=== PATIENT | female | born 1970 | race Caucasian/White ===

== ENCOUNTER → 2016-10-20 | Outpatient (CLI) | payer BC ==
[2015-09-09 14:12] VITALS: BP 146/84
[~2016-10-20] MED LIST: CHLO25CA9 PO; CHOL100013 PO; CYCL10TA2 PO; DULO60CA6 PO; ESCI20TA10 PO; FERR-26 PO; FISH1CAP PO; GABA-586 PO; GABA400C PO; HYDR-2672 PO; HYDR-963 PO; HYDR12.58 PO; HYDR25TA PO; HYDR50CA2 PO; INDO50CA PO; LISI-334 PO; LISI40TA PO; MOME13HF2 IH; MULT-460 PO; MULT-658 PO; NAPR500T3 PO; OXYC-244 PO; OXYC1TAB9 PO; PANT40TA3 PO; ROPI4TAB3 PO; SINEX; TRAM50TA PO; TRAZ100T12 PO; TRIA10.8 NS; VENTOLIN HFA18 GM INH; [UNRECOGNIZED DRUG - CODE] PO; water pill
--- NOTE | 2016-10-20 17:20 | KCIC ---
Examination: Three views of the lumbar spine. HISTORY History of chronic low back pain. COMPARISON 01/17/2015. Findings: The vertebral body heights are maintained. Minimal 1 millimeter retrolisthesis of L3 on L4 similar to prior exam. Posterior fusion rods and pedicle screws identified at L4-L5 vertebral levels. Mild degenerative changes identified at L4-L5 vertebral level. Impression : Postsurgical changes identified in the lower lumbar spine unchanged. Electronically signed by: Rex Lynn (Oct 20, 2016 17:19:06)
== END | disposition home or self-care (01) ==
LOC: KCIC 08:24
PROVIDERS: ATTEND Neurological Surgery
DX: M54.5 Low back pain (principal); G89.29 Other chronic pain
CPT/HCPCS: 72100

== ENCOUNTER → 2016-10-20 | Outpatient (CLI) | payer SELFPAY ==
[2015-09-09 14:12] VITALS: BP 146/84
[~2016-10-20] MED LIST changes: +GADOBUTROL 7.5 MMOL/7.5 ML VIAL IV ONE
--- NOTE | 2016-10-20 13:34 | KCIC ---
PROCEDURE MRI of the lumbar spine without and with contrast 10/20/2016 HISTORY Chronic low back pain which radiates down the left leg. History of previous lumbar spine surgery. TECHNIQUE Unenhanced T1 weighted and T2 weighted sagittal and axial and inversion recovery sagittal images of the lumbar spine were obtained. After the intravenous administration of 14 cc of Gadavist, enhanced T1 weighted sagittal and axial images of the lumbar spine were obtained. FINDINGS Comparison study is dated 02/18/2015. Very mild S-shaped curvature of the thoracolumbar spine is seen. The patient is status post posterolateral fusion using pedicle screws and stabilizing rods at L4-5. Degenerative signal changes are seen involving the L2-3, L3-4, L4-5 and L5-S1 discs. Degenerative signal changes are seen within the marrow surrounding these discs. Loss of height of the L4-5 disc is noted. The conus medullaris is normal in morphology, position, and signal characteristics. At the L1-2 disc space there is a minimal generalized disc bulge. This does not result in significant central spinal canal or neural foraminal stenosis. At the L2-3 disc space there is a mild generalized disc bulge. Degenerative changes are seen involving the facet joints bilaterally. There is mild ligamentum flavum hypertrophy bilaterally. There is prominence of the posterior epidural fat. These findings when combined result in mild central spinal canal stenosis. No neural foraminal stenosis is seen. At the L3-4 disc space there is a mild generalized disc bulge. This is eccentric to the right. Degenerative changes are seen involving the facet joints bilaterally. There is mild to moderate ligamentum flavum hypertrophy bilaterally. There is prominence of the posterior epidural fat. These findings when combined result in mild central spinal canal stenosis. No neural foraminal stenosis is seen. At the L4-5 disc space the patient is status post right hemilaminectomy. There is a mild generalized disc bulge. Degenerative changes are seen involving the facet joints bilaterally. These findings do not result in significant central spinal canal or neural foraminal stenosis. At the L5-S1 disc space the patient is status post right hemilaminectomy. There is a mild generalized disc bulge. Degenerative changes are seen involving the facet joints bilaterally. These findings do not result in significant central spinal canal or neural foraminal stenosis. Since the previous examination there has been no significant interval change. IMPRESSION 1. Status post posterolateral fusion and right hemilaminectomy at L4-5 and right hemilaminectomy L5-S1. 2. The changes of degenerative disc disease are seen involving lumbar spine. These findings result in mild central spinal canal stenosis at L2-3 and L3-4. No neural foraminal stenosis is seen. Electronically signed by: Justin Espino MD (Oct 20, 2016 13:32:11)
== END | disposition home or self-care (01) ==
LOC: KCIC MRI 08:31
PROVIDERS: ATTEND Physical Medicine & Rehabilitation
DX: M54.5 Low back pain (principal); G89.29 Other chronic pain
CPT/HCPCS: 72158; A9585

== ENCOUNTER → 2016-11-10 | Outpatient (CLI) | payer BC ==
[2015-09-09 14:12] VITALS: BP 146/84
[~2016-11-10] MED LIST changes: -GADOBUTROL 7.5 MMOL/7.5 ML VIAL IV ONE
--- NOTE | 2016-11-10 11:44 | KCIC ---
PROCEDURE Lateral radiographs of the lumbar spine to include flexion and extension views 11/09/2012 HISTORY Low back pain. History of previous lumbar spine surgery. FINDINGS Standing neutral and flexion and extension digital radiographs of the lumbar spine were obtained. Comparison study is dated 01/17/2015. The patient is status post posterolateral fusion using pedicle screws and stabilizing rods at L4-5. The alignment of the lumbar vertebrae is within normal limits on the lateral radiographs and is maintained on the flexion and extension views. Degenerative changes consisting of vertebral endplate sclerosis and minimal anterior and posterior vertebral body osteophyte formation are seen throughout the lumbar disc spaces. Mild disc space narrowing is seen at L4-5 and L5-S1. Degenerative changes are seen involving the facet joints of the lower lumbar spine. IMPRESSION Postsurgical and degenerative changes are seen involving the lumbar spine as outlined above. The alignment of the lumbar vertebrae is maintained on the flexion and extension views. Electronically signed by: Justin Espino MD (Nov 10, 2016 11:43:25)
--- NOTE | 2016-11-10 11:56 | KCIC ---
PROCEDURE CT of the lumbar spine without contrast 11/10/2016 HISTORY Low back pain. History of previous lumbar spine surgery. TECHNIQUE Unenhanced contiguous, 0.6 millimeter axial sections were obtained through the lumbar spine. 3 millimeter reconstructed sagittal axial and coronal images were obtained. One or more of the following individualized dose reduction techniques were utilized for this study: 1. Automated exposure control. 2. Adjustment of the mA and/or kV according to patient size. 3. Use of iterative reconstruction technique. FINDINGS Comparison is made to the patient's MRI of the lumbar spine dated 10/20/2016. Sagittal and coronal reconstructed images demonstrate very mild S-shaped curvature of the thoracolumbar spine. The patient is status post posterolateral fusion at L4-5 using stabilizing rods and pedicle screws. Degenerative changes are seen throughout the lumbar disc spaces consisting of vertebral endplate sclerosis and minimal to mild anterior vertebral body osteophyte formation predominantly. Disc space narrowing and vacuum disc phenomenon are seen at L4-5 and L5-S1. At the L1-2 disc space there is a minimal generalized disc bulge. Degenerative changes are seen involving the facet joints bilaterally. These findings do not result in significant central spinal canal or neural foraminal stenosis. At the L2-3 disc space there is a mild generalized disc bulge. Degenerative changes are seen involving the facet joints bilaterally. There is mild ligamentum flavum hypertrophy bilaterally. There is prominence of the posterior epidural fat. These findings when combined result in mild central spinal canal stenosis. No neural foraminal stenosis is seen. At the L3-4 disc space there is a mild generalized disc bulge. Degenerative changes are seen involving the facet joints bilaterally. There is mild to moderate ligamentum flavum hypertrophy bilaterally. There is prominence of the posterior epidural fat. These findings when combined result in mild central spinal canal stenosis. No neural foraminal stenosis is seen. The L4-5 disc space the patient is status post right hemilaminotomy. There is a mild generalized disc bulge. Degenerative changes are seen involving the facet joints bilaterally. These findings do not result in significant central spinal canal or neural foraminal stenosis. At the L5-S1 disc space the patient is status post right hemilaminectomy. There is a mild generalized disc bulge. This is eccentric to the left. Degenerative changes are seen involving the facet joints, left greater than right. These findings do not result in significant central spinal canal stenosis. Mild left neural foraminal stenosis is seen. The right neural foramina is patent. IMPRESSION 1. Status post right hemilaminotomy and posterolateral fusion at L4-5. Status post right hemilaminectomy at L5-S1. 2. The changes of degenerative disc disease are seen throughout the lumbar spine. These findings result in mild central spinal canal stenosis at L2-3 and L3-4. Mild left neural foraminal stenosis is seen at L5-S1. Electronically signed by: Justin Espino MD (Nov 10, 2016 11:55:43)
--- NOTE | 2016-11-10 12:21 | KCIC ---
PROCEDURE MRI of the cervical spine without contrast 11/10/2016 HISTORY Neck pain with bilateral arm numbness and tingling for 1 month. TECHNIQUE Unenhanced T1 weighted, T2 weighted and inversion recovery sagittal and gradient echo and T2 weighted axial images of the cervical spine were obtained. FINDINGS Comparison is made to radiographs of the cervical spine dated 04/15/2014. There is mild lateral curvature of the cervical spine convex to the left. There is straightening of the normal cervical lordosis. Degenerative signal changes are seen involving all of the discs of cervical spine. Degenerative signal changes are seen within the marrow surrounding these discs. A 9 millimeter hemangioma is seen involving the T2 vertebral body. No area of abnormal signal intensity is seen involving the cervical spinal cord. At the C2-3, C3-4 and C4-5 disc spaces are minimal to mild generalized disc bulges. Degenerative changes are seen involving the uncovertebral and facet joints bilaterally. These findings do not result in significant central spinal canal or neural foraminal stenosis. At the C5-6 disc space there is a mild to moderate generalized disc bulge. Degenerative changes are seen involving the uncovertebral and facet joints, right greater than left. These findings efface the anterior and posterior CSF resulting in mild central spinal canal stenosis without evidence of cord impingement. Mild right neural foraminal stenosis is seen. The left neural foramina is patent. At the C6-7 disc space there is mild to moderate generalized disc bulge. This is eccentric to the right. Degenerative changes are seen involving the uncovertebral and facet joints, right greater than left. These findings efface the anterior CSF and posterior CSF resulting in mild right greater than left central spinal canal stenosis without evidence of cord impingement. Mild right neural foraminal stenosis is seen. The left neural foramina is patent. At the C7-T1 disc space there is a minimal generalized disc bulge. Degenerative changes are seen involving the facet joints bilaterally. These findings do not result in significant central spinal canal or neural foraminal stenosis. IMPRESSION Degenerative changes are seen throughout the cervical spine. These findings result in mild central spinal canal stenosis at C5-6 and mild right greater than left central spinal canal stenosis at C6-7 without evidence of cord impingement. Mild right-sided neural foraminal stenosis is seen at C5-6 and C6-7. Electronically signed by: Justin Espino MD (Nov 10, 2016 12:19:49)
== END | disposition home or self-care (01) ==
LOC: KCIC CT 10:13
PROVIDERS: ATTEND Neurological Surgery
DX: M47.896 Other spondylosis, lumbar region (principal); M48.06 Spinal stenosis, lumbar region; M48.02 Spinal stenosis, cervical region; M54.9 Dorsalgia, unspecified; M96.0 Pseudarthrosis after fusion or arthrodesis; M43.16 Spondylolisthesis, lumbar region
CPT/HCPCS: 72100; 72131; 72141

== ENCOUNTER → 2016-11-30 | Outpatient (CLI) | payer BC ==
[2015-09-09 14:12] VITALS: BP 146/84
--- NOTE | 2016-11-30 14:05 | KCIC ---
PROCEDURE Bilateral digital screening mammogram. HISTORY 46-year-old female presents for screening mammography. TECHNIQUE Full field digital craniocaudal and mediolateral oblique views of both breasts were obtained. Computer-aided detection is applied. COMPARISON There is no prior study for comparison at the time of dictation. An addendum to this report will be submitted if a prior study becomes available. FINDINGS Breast parenchymal composition: Level D - Extremely dense. There are a few benign-appearing calcifications within both breasts. No suspicious calcification morphology is seen. There is no suspicious mass or architectural distortion within either breast. IMPRESSION BI-RADS Category 2: Benign findings. Annual mammography is recommended. This study was interpreted with the benefit of Computerized Aided Detection (CAD). Mammography is not 100% sensitive in detecting breast cancer. Therefore, a self breast exam and a clinical breast exam are very important. A negative mammogram does not negate a clinically suspicious finding and should not result in a delay in biopsying a clinically suspicious abnormality. The patient information was entered into a reminder system with a target date for her next mammogram in year. Electronically signed by: Erma Jean Baptiste (November 30, 2016 14:03:21)
== END | disposition home or self-care (01) ==
LOC: KCIC MAMMO 12:23
DX: Z12.31 Encounter for screening mammogram for malignant neoplasm of breast (principal)
CPT/HCPCS: G0202; 77067

== ENCOUNTER → 2016-12-14 | Outpatient (CLI) | payer BC ==
[2015-09-09 14:12] VITALS: BP 146/84
[~2016-12-14] MED LIST changes: +IOHEXOL 180 MG/ML 10 ML VIAL. ONE; +methylPREDNISolone ACETATE 40 MG/ML VIAL. ONE; +methylPREDNISolone ACETATE 80 MG/ML VIAL. ONE
--- NOTE | 2016-12-15 01:19 | PAIN ---
DATE OF SERVICE: 12/14/2016 PROGRESS NOTE FOR PAIN CLINIC DIAGNOSES: Lumbar radiculopathy with lumbar degenerative disk disease and lumbar post-laminectomy syndrome. HISTORY OF PRESENT ILLNESS: The patient is a 46-year-old female who returns, last seen in 2013, since had 2 lumbar surgeries with fusion and instrumentation in 05/2014. The patient reports she is doing fairly well, but the pain returns now. Over the past 6 months or so, increased in her low back and left leg, posterior gluteus, posterior thigh, posterior calf, difficulty moving the leg and walking. She is using a cane in her left hand, aching, sharp, tight, stabbing, burning, tingling and unbearable pain, rates it 10 on a scale of 10, it is worse. It is currently 7 on a scale of 10 today. The patient reports progressively worse over time. She has seen her neurosurgeon who was done a recent MRI scan shows no significant surgical lesions that are present, progressively worse in the low back, difficulty walking, better with sitting or lying down, but still significantly painful and has awaken her from sleep occasionally as well, but not every night. The patient reports no motor or sensory loss, but significant fatigability and pain in the left lower extremity with ambulation. The patient has been taking oxycodone without significant improvement. She has been doing some stretching exercises and has not had any recent physical therapies or other modalities at this time. PAST MEDICAL HISTORY: Significant for COPD, hypertension, obesity, asthma and arthritis. PAST SURGICAL HISTORY: Previous surgery include cholecystectomy, laparoscopic ____ weight loss surgery, tonsillectomy and recent lumbar fusion in 05/2014 with laminectomy prior to that. CURRENT MEDICATIONS: Include oxycodone, Ventolin inhaler, trazodone, hydrochlorothiazide, hydroxyzine, gabapentin, indomethacin, Cymbalta and lisinopril. ALLERGIES: THE PATIENT IS ALLERGIC TO PENICILLIN AND LEVAQUIN. FAMILY HISTORY: Significant for high blood pressure as well as heart disease. SOCIAL HISTORY: The patient is a nonsmoker, does not drink alcohol. Recovering alcoholic, the patient is on disability from local [employer] and lives on her own and lives locally in [place], [place]. REVIEW OF SYSTEMS: The patient's review of systems is positive for those items mentioned in history of present illness. All systems reviewed and otherwise negative. It is complete, full and well documented on the patient's chart. PHYSICAL EXAMINATION: VITAL SIGNS: The patient's blood pressure 148/89, pulse 90, respirations are 18, temperature 98.2 degrees Fahrenheit, height is 5 feet 8 inches, weighs 359 pounds. GENERAL: The patient is awake, alert, oriented, appropriate, very pleasant demeanor. HEENT: Heads shows normocephalic, atraumatic. Extraocular movements are intact and symmetrical. Oral cavity, mucous membranes moist and pink. Dentition is intact. NECK: Shows anterior throat supple without palpable lymphadenopathy noted. Swallow reflex is symmetrical. CHEST: Shows normal on inspection. Breath sounds are clear to auscultation bilaterally. HEART: Shows S1 and S2 clear. ABDOMEN: Obese, soft, nontender, nondistended. No palpable organomegaly. No rebound or guarding demonstrated. BACK: Shows spine grossly midline. Slight exaggeration of thoracic kyphosis and some flattening of lumbar lordotic curvature are noted. Well-healed surgical scars noted in the lumbar spine. Paraspinous musculature shows symmetrical on inspection, with palpation shows moderate tenderness bilaterally in the upper, middle and lower distribution diffusely without radiation. No tenderness over the sacrum or sacroiliac regions. EXTREMITIES: Lower extremities showed deep tendon reflexes at 1+ in the patellar and tendo calcaneus tendons are equal. Motor exam is approximately 4 on a scale of 5, but symmetrical with dorsiflexion, extension, quadriceps and hamstring flexion and equal bilaterally. PLAN: Options were discussed with the patient and the patient's old chart was reviewed once again as well as review of systems and medication list updated. We discussed a caudal approach epidural steroid injection and she would like to proceed with this, we used anatomical models to describe the procedure. Risks were then discussed including, but not limited to bleeding, infection, possibility of epidural hematoma, subsequent neurologic compromise, dural puncture, headaches, spinal cord and/or nerve damage, side effects of steroid medication and poor results regarding pain control. The patient understands and wishes to proceed. The patient will return to clinic in approximately 2 weeks for followup, was counseled on return appointment, activity level and side effects to be aware of. DIAGNOSES: Lumbar radiculopathy with lumbar degenerative disk disease and post-lumbar laminectomy syndrome. PROCEDURES: Caudal approach epidural steroid injection using C-arm fluoroscopic guidance under sterile prep and drape using local anesthetic. MEDICATION INJECTED: 120 mg Depo-Medrol plus 10 mL of preservative-free normal saline and 2 mL of Isovue for contrast. CONDITION AT DISCHARGE: Stable. The patient tolerated procedure well, had no complications. PATRICK WEST MD DR: MAXX/mac JOB#: [id number] / [id number]
== END | disposition home or self-care (01) ==
LOC: PNCL 08:32
PROVIDERS: ATTEND Anesthesiology
DX: M51.16 Intervertebral disc disorders with radiculopathy, lumbar region (principal); M96.1 Postlaminectomy syndrome, not elsewhere classified; J44.9 Chronic obstructive pulmonary disease, unspecified; I10 Essential (primary) hypertension; E66.9 Obesity, unspecified; J45.909 Unspecified asthma, uncomplicated; M19.90 Unspecified osteoarthritis, unspecified site; Z90.49 Acquired absence of other specified parts of digestive tract
CPT/HCPCS: 62323; J1030; J1040

== ENCOUNTER → 2016-12-14 | Outpatient (CLI) | payer BC ==
[2015-09-09 14:12] VITALS: BP 146/84
[~2016-12-14] MED LIST changes: -IOHEXOL 180 MG/ML 10 ML VIAL. ONE; -methylPREDNISolone ACETATE 40 MG/ML VIAL. ONE; -methylPREDNISolone ACETATE 80 MG/ML VIAL. ONE
--- NOTE | 2016-12-14 17:25 | RAD ---
Examination: Ultrasound left lower extremity venous duplex History: left lower extremity pain Comparison: None available Technique: Grayscale, color 2-D, spectral waveform analysis of the left lower extremity venous system were performed Findings: The visualized common femoral vein, superficial femoral vein, popliteal vein demonstrate normal compression augmentation of flow. The visualized calf veins are patent. Impression: No evidence of deep venous thrombosis identified in the visualized left lower extremity venous system.
== END | disposition home or self-care (01) ==
LOC: US 16:39
PROVIDERS: ATTEND Physical Medicine & Rehabilitation
DX: M79.605 Pain in left leg (principal); M79.89 Other specified soft tissue disorders
CPT/HCPCS: 93971

== ENCOUNTER → 2017-01-03 | Outpatient (CLI) | payer BC ==
[2015-09-09 14:12] VITALS: BP 146/84
[~2017-01-03] MED LIST changes: +IOHEXOL 180 MG/ML 10 ML VIAL. ONE; +methylPREDNISolone ACETATE 40 MG/ML VIAL. ONE; +methylPREDNISolone ACETATE 80 MG/ML VIAL. ONE
--- NOTE | 2017-01-04 01:32 | PAIN ---
DATE OF SERVICE: 01/03/2017 PROGRESS NOTE FOR PAIN CLINIC DIAGNOSES: Lumbar radiculopathy with lumbar degenerative disk disease and post-lumbar laminectomy syndrome. HISTORY OF PRESENT ILLNESS: The patient is a 46-year-old female who returns for followup status post caudal epidural steroid injection x 1 and reports approximately 60% plus improvement in her low back and bilateral lower extremity pain. The patient reports her leg is doing much better. Pain is now essentially just in the back itself, rates it a 2 to a 10 on a scale of 10, worse with standing, walking, changing positions or activities. The patient reports it wakes her from sleep occasionally, but not every night. She has to reposition and that takes care of the pain. Said she is sleeping about 6 hours a night on an average. The patient reports no new motor or sensory deficits, no new bowel or bladder incontinence or other complaints. PHYSICAL EXAMINATION: VITAL SIGNS: Today, the patient's blood pressure is 133/72, pulse is 104, respirations 18, temperature 98.2 degrees Fahrenheit and height is 5 feet 8 inches, weighs is 336 pounds. GENERAL: The patient is awake, alert, oriented, appropriate, has very pleasant demeanor. HEENT: Head shows normocephalic, atraumatic. Extraocular movements are intact, symmetrical. Oral cavity shows mucous membranes moist and pink. Dentition is intact. NECK: Shows anterior throat supple without palpable lymphadenopathy noted. Swallow reflex is symmetrical. CHEST: Shows normal on inspection. Breath sounds are clear to auscultation bilaterally. HEART: Shows S1 and S2 clear. No murmurs auscultated. ABDOMEN: Obese, soft, nontender and nondistended. No palpable organomegaly is noted. BACK: Shows spine grossly midline, normal-appearing thoracic kyphosis, mild flattening of lumbar lordotic curvature. There is well-healed surgical scarring noted in the lumbar distribution. The patient's lumbar paraspinous muscle shows roughly symmetrical on inspection. With palpation shows some moderate tenderness, but only in the lower lumbar distribution only diffusely. No tenderness over the sacrum or sacroiliac regions. EXTREMITIES: Lower extremities show deep tendon reflexes at 1+ in the patellar and tendo calcaneus tendons are equal. Motor exam is strong, was approximately 4 on a scale of 5, but equal dorsiflexion, extension and symmetrical. Options were discussed with the patient and the patient's old chart was reviewed as her current medication regimen and updated. Current review of systems updated today as well. We will proceed with a second caudal approach epidural steroid injection today with fluoroscopic guidance. Risks were again discussed including, but not limited to bleeding, infection, possibility of epidural hematoma and subsequent neurologic compromise, dural puncture, headaches, spinal cord and/or nerve damage, side effects of steroid medication and poor results regarding pain control. The patient understands and wished to proceed. The patient will return to the clinic in approximately 2 weeks for followup, was counseled on return appointment, activity level and side effects to be aware of. DIAGNOSES: Lumbar radiculopathy with lumbar degenerative disk disease and post-lumbar laminectomy syndrome. PROCEDURE: Caudal approach epidural steroid injection using C-arm fluoroscopic guidance under sterile prep and drape using local anesthetic. MEDICATION INJECTED: 120 mg Depo-Medrol plus 10 mL of preservative-free normal saline and 2 mL of Isovue for contrast. CONDITION AT DISCHARGE: Stable. The patient tolerated the procedure well, had no complications. PATRICK WEST MD DR: MAXX/mac JOB#: [id number] / [id number]
== END | disposition home or self-care (01) ==
LOC: PNCL 11:26
PROVIDERS: ATTEND Anesthesiology
DX: M51.16 Intervertebral disc disorders with radiculopathy, lumbar region (principal); M96.1 Postlaminectomy syndrome, not elsewhere classified; E78.00 Pure hypercholesterolemia, unspecified; I10 Essential (primary) hypertension; J44.9 Chronic obstructive pulmonary disease, unspecified; J45.909 Unspecified asthma, uncomplicated; K21.9 Gastro-esophageal reflux disease without esophagitis; F41.9 Anxiety disorder, unspecified; F32.9 Major depressive disorder, single episode, unspecified; Z86.69 Personal history of other diseases of the nervous system and sense organs; Z87.39 Personal history of other diseases of the musculoskeletal system and connective tissue; Z72.89 Other problems related to lifestyle
CPT/HCPCS: 62323; J1030; J1040

== ENCOUNTER → 2018-01-17 | Outpatient (CLI) | payer OTHER, BC | END | disposition home or self-care (01) | LOC: US 14:40 | DX: R22.1 Localized swelling, mass and lump, neck (principal) | CPT/HCPCS: 76536 ==

== ENCOUNTER → 2018-02-14 | Outpatient (CLI) | payer OTHER ==
[~2018-02-14] MED LIST changes: -CHLO25CA9 PO; -CHOL100013 PO; +CONTRAST GIVEN. MC; -CYCL10TA2 PO; -DULO60CA6 PO; -ESCI20TA10 PO; -FERR-26 PO; -FISH1CAP PO; -GABA-586 PO; -GABA400C PO; -HYDR-2672 PO; -HYDR-963 PO; -HYDR12.58 PO; -HYDR25TA PO; -HYDR50CA2 PO; -INDO50CA PO; -IOHEXOL 180 MG/ML 10 ML VIAL. ONE; -LISI-334 PO; -LISI40TA PO; -MOME13HF2 IH; -MULT-460 PO; -MULT-658 PO; -NAPR500T3 PO; -OXYC-244 PO; -OXYC1TAB9 PO; -PANT40TA3 PO; -ROPI4TAB3 PO; -SINEX; -TRAM50TA PO; -TRAZ100T12 PO; -TRIA10.8 NS; -VENTOLIN HFA18 GM INH; -[UNRECOGNIZED DRUG - CODE] PO; -methylPREDNISolone ACETATE 40 MG/ML VIAL. ONE; -methylPREDNISolone ACETATE 80 MG/ML VIAL. ONE; -water pill
[2018-02-14] MEDS: SODIUM BICARBONATE VIAL 150 MEQ in IV STERILE WATER 1,000 ML IV ×2 (07:15→10:00)
[2018-02-14] MEDS: IOHEXOL 300 MG/ML 100ML VIAL. IV (08:45)
== END | disposition home or self-care (01) ==
LOC: CT 07:04
DX: J98.11 Atelectasis (principal); I10 Essential (primary) hypertension; E78.00 Pure hypercholesterolemia, unspecified; J44.9 Chronic obstructive pulmonary disease, unspecified; K21.9 Gastro-esophageal reflux disease without esophagitis; R91.1 Solitary pulmonary nodule
CPT/HCPCS: 70491; Q9967

== ENCOUNTER → 2018-07-10 | Outpatient (CLI) | payer BC, OTHER ==
[2015-09-09 14:12] VITALS: BP 146/84
[~2018-07-10] MED LIST changes: +ATOR40TA PO; +CHLO25CA9 PO; +CHOL100013 PO; +CHOL100014 PO; -CONTRAST GIVEN. MC; +CYCL10TA2 PO; +DULO60CA6 PO; +FERR325T14 PO; +FISH1CAP PO; +FOLI1TAB35 PO; +GABA-689 PO; +GABA300C18 PO; +HYDR-2769 PO; +HYDR-3135 PO; +HYDR12.58 PO; +HYDR25TA PO; +HYDR50CA2 PO; +INDO50CA5 PO; +LEXAPRO20 MG PO; +LISI-130 PO; +LISI-334 PO; +MOME13HF2 IH; +MULT-460 PO; +MULT-658 PO; +NAPR-514 PO; +OMEP40CA5 PO; +OXYC-411 PO; +OXYC1TAB19 PO; +PANT40TA3 PO; +ROPI4TAB3 PO; +SINEX; +TIZA4TAB PO; +TRAM50TA PO; +TRAZ-86 PO; +TRIA10.8 NS; +VENTOLIN HFA18 GM INH; +[UNRECOGNIZED DRUG - CODE] PO; +water pill
--- NOTE | 2018-07-10 15:57 | KCIC ---
Bilateral digital screening mammograms: Reason for examination: Routine screening. Comparison is made to previous studies dated 11/30/2016 and 11/07/2012. Interpretation was made with the benefit of CAD. The skin and nipples show no abnormalities. No abnormal axillary lymph nodes are seen. The breast parenchyma is extremely dense. (Breast density: Category D.) There are no dominant masses, suspicious calcifications or architectural distortion. A few benign calcifications are seen. Impression: No evidence of malignancy. Recommend routine screening. Your patient's mammogram demonstrates that she has dense breast tissue (breast density category C or D), which could hide abnormalities, and if she has other risk factors for breast cancer that have been identified, she might benefit from supplemental screening tests that may be suggested by you as her ordering physician. Dense breast tissue, in and of itself, is a relatively common condition. Therefore, this information is not provided to cause undue concern, but rather to raise your awareness and to promote discussion with your patient regarding the presence of other risk factors, in addition to dense breast tissue. Your patient's mammography results will be sent to her. BI-RAD Category 2: Benign. "Our facility is accredited by the [employer] Mammography Program." This patient's information has been entered into a reminder system for the patient to be notified with the results of her examination and a target date for the next mammogram. Electronically signed by: Rosi Liu MD (07/10/2018 3:53 PM) [id number]
== END | disposition home or self-care (01) ==
LOC: KCIC MAMMO 14:31
PROVIDERS: ATTEND Internal Medicine
DX: Z12.31 Encounter for screening mammogram for malignant neoplasm of breast (principal)
CPT/HCPCS: 77067

== ENCOUNTER → 2019-01-02 | Outpatient (CLI) | payer OTHER ==
[2015-09-09 14:12] VITALS: BP 146/84
[~2019-01-02] MED LIST changes: +METO-239 PO
--- NOTE | 2019-01-03 06:56 | PAIN ---
DATE OF SERVICE: 01/02/2019 PROGRESS NOTE FOR PAIN CLINIC DIAGNOSES: Lumbar radiculopathy with lumbar degenerative disk disease and lumbar post-laminectomy syndrome. HISTORY OF PRESENT ILLNESS: The patient is a 48-year-old female who returns for followup, last seen in 12/2016. The patient had a caudal epidural steroid injection at that time with very good results about 60%-70% improvement lasting for several months after the injection but the patient reports she has had difficulty with insurance since that time and has been unable to afford any further followups or visits or procedures and has been taking care of herself as best she can in the meantime. The patient reports that she is a recovering alcoholic. She has been 8 months alcohol free at this time and she is unable to afford a lot of medical treatment at this time as her deductibles are very high on her insurance. The patient reports her main complaint is pain in the low back and bilateral lower extremities, radiating into the posterior gluteus, posterior thigh, posterior calf, right essentially equal to left. It is aching, sharp and tight and constant in the low back and legs, rates a 10 on a scale of 10 at its worst over the last week, 8 on average, 6 at its least and is an 8 today. The patient reports that she has had some issues with her heart. She needs an echocardiogram and a sleep study. Again, she is trying to raise the money to afford the copays on these. The patient does have history of sleep apnea. The pain is worse with walking, standing and changing positions. She uses a scooter when she can and she has a walker with her today on her visit, which she uses when she is traveling when she is going to appointments. The patient has not had any recent physical therapies or other treatments at this time. The patient's old chart was reviewed as well as her current medication regimen updated. Current review of systems updated today as well. PHYSICAL EXAMINATION: VITAL SIGNS: The patient's blood pressure 172/86, pulse 76, respirations 18 and temperature is 98.9 degrees Fahrenheit. Height is 5 feet 8 inches and weight is 371 pounds. GENERAL: The patient is awake, alert, oriented, appropriate and very pleasant demeanor. HEENT: Head is normocephalic and atraumatic. Extraocular movements are intact and symmetrical. Oral cavity: Mucous membranes are moist and pink. Dentition is intact. NECK: Shows anterior throat supple without palpable lymphadenopathy noted. Swallow reflex symmetrical. CHEST: Shows normal on inspection. Breath sounds clear to auscultation bilaterally. HEART: Shows S1 and S2 clear. No murmurs auscultated. ABDOMEN: Obese, soft, nontender and nondistended. No palpable organomegaly is noted. BACK: Shows spine grossly in the midline. Normal-appearing cervical lordotic curvature, thoracic kyphotic curvature is slightly increased and some mild flattening of lumbar lordotic curvature. Well-healed surgical scar noted. Lumbar paraspinous muscle shows symmetrical, but with palpation shows some moderate tenderness throughout the upper, middle and lower distribution of the paraspinous musculature diffusely without radiation, without trigger points. No tenderness over the spinous processes, sacrum or sacroiliac regions. The patient has good rotational motion of the lumbar spine, both laterally as well as extension and flexion without significant increase in pain. There is mild increase with lower lumbar spinous process pressure in the midline. EXTREMITIES: The patient's lower extremities show deep tendon reflexes 1+ in the patellar and tendo-calcaneus tendons. Motor exam is approximately 4 on a scale of 5 with dorsiflexion and extension but equal and symmetrical as well as with quadriceps and hamstring flexion. Peripheral pulses are 1+ posterior tibial. There is no specific edema noted bilaterally in the lower extremities. Options were discussed with the patient. The patient's old chart was reviewed as well as current medication regimen updated. Current review of systems updated today as well and we will encourage the patient to seek physical therapy with water therapy. She has been looked into the copay for the sessions see if she can afford this, I think this will be significantly helpful for her and probably more effective than regular physical therapy without water. Also, we discussed a caudal epidural steroid injection as she has done well with these in the past. She needs to wait if she can afford the copay for this and we will try some [id number] samples of diclofenac in the meantime and the patient will follow up in approximately 4 weeks or sooner if necessary. The patient would like to do some investigation about the water therapy and we will make arrangements if she is able to afford that with orders to follow. PATRICK WEST MD DR: MAXX/mac JOB#: [id number] / [id number]
== END | disposition home or self-care (01) ==
LOC: PNCL 14:10
PROVIDERS: ATTEND Anesthesiology
DX: M51.16 Intervertebral disc disorders with radiculopathy, lumbar region (principal); M96.1 Postlaminectomy syndrome, not elsewhere classified
CPT/HCPCS: G0463

== ENCOUNTER → 2019-08-10 | Outpatient (CLI) | payer OTHER ==
[2015-09-09 14:12] VITALS: BP 146/84
[~2019-08-10] MED LIST changes: +INDO50CA15 PO; -INDO50CA5 PO; +OMEP40CA45 PO; -OMEP40CA5 PO; -PANT40TA3 PO; +PANT40TA77 PO; -TIZA4TAB PO; +TIZA4TAB2 PO; +TRAZ-123 PO; -TRAZ-86 PO
--- NOTE | 2019-08-10 14:45 | KCIC ---
MRI Brain without contrast History: Headache Technique: Multiplanar, multisequential noncontrast MR imaging was performed of the brain. Comparison: None Findings: There is no evidence of recent infarct or cytotoxic edema. The ventricles, sulci, and cisterns are within normal limits in size and configuration. There is no significant midline shift, intraaxial mass effect, or focal abnormal extra-axial fluid collection. There is a tiny focus of T2 and FLAIR hyperintense signal of the left frontal deep white matter, likely tiny focus of nonspecific gliosis. There is no significant hemosiderin deposition of the brain parenchyma. There is preservation of the major intracranial flow-voids at the skull base. The mastoid air cells are aerated. The cerebellar tonsils are normal in location. There is no significant abnormality of the pineal gland or pituitary gland. There is negligible patchy ethmoid air cell mucosal thickening. There is preserved marrow signal of the clivus. Impression: 1. Other than a tiny focus of likely nonspecific gliosis of the left frontal white matter, there is no significant intracranial abnormality. Electronically signed by: Keny Hassan MD (08/10/2019 2:42 PM) [facility]
== END | disposition home or self-care (01) ==
LOC: KCIC MRI 13:40
PROVIDERS: ATTEND Surgery
DX: J34.89 Other specified disorders of nose and nasal sinuses (principal)
CPT/HCPCS: 70551

== ENCOUNTER → 2019-10-22 | Outpatient (CLI) | payer OTHER ==
[2015-09-09 14:12] VITALS: BP 146/84
--- NOTE | 2019-10-22 12:10 | PAIN ---
DATE OF SERVICE: 10/22/2019 PROGRESS NOTE FOR PAIN CLINIC DIAGNOSES: Lumbar radiculopathy with lumbar degenerative disk disease and lumbar post-laminectomy syndrome. HISTORY OF PRESENT ILLNESS: The patient is a 49-year-old female who returns for followup status post lumbar caudal approach epidural steroid injections with very good results about 60-70% improvement, most recently 12/2016. The patient reports she has identical symptoms now in the low back and bilateral lower extremities, posterior gluteus, posterior thighs, posterior calves as well as the anterior thighs and calves at times, mostly posteriorly. The patient reports it is aching, sharp pain, is dull and tight, shooting in a radicular pattern in the bilateral lower extremities, slightly worse on the right than the left. The patient reports the pain is a 10 on a scale of 10 at its worst over the past week, 9 on average, 7 at its least and is a 9 today. The patient reports it is worse with walking, standing, changing positions, better with sitting or lying down, generally does not awaken her from sleep at night. The patient reports initially she was increasing her distance walking, doing greater work around the house. She has moved into an apartment as her home was too large for her to take care of by herself and she feels this has been a good move for her. Also, had had recent injections in both her knees from her orthopedic surgeon and reports this is helping as well. The patient reports no new motor or sensory deficits, no new bowel or bladder incontinence. PHYSICAL EXAMINATION: VITAL SIGNS: The patient's blood pressure 164/84, pulse 72, respirations are 18, temperature 99.1 degrees Fahrenheit, height is 5 feet 8 inches, weight is 397 pounds. GENERAL: The patient is awake, alert, oriented, appropriate, very pleasant demeanor. HEENT: Shows normocephalic, atraumatic. Extraocular movements are intact and symmetrical. Oral cavity: Mucous membranes moist and pink. Dentition is intact. NECK: Shows anterior throat supple without palpable lymphadenopathy noted. Swallow reflex symmetrical. CHEST: Shows normal on inspection. Breath sounds are clear bilaterally. HEART: Shows S1, S2 clear. No murmurs auscultated. ABDOMEN: Soft, nontender, nondistended. No palpable organomegaly is noted. No rebound or guarding demonstrated. BACK: Shows spine grossly in the midline. Normal appearing thoracic kyphosis and lumbar lordotic curvature. Lumbar paraspinous muscle shows symmetrical on inspection, on palpation shows some moderate tenderness diffusely bilaterally going diffusely in the low lumbar distribution. Well-healed surgical scars again noted. EXTREMITIES: The patient's lower extremities show deep tendon reflexes 1+ patellar and tendo calcaneus tendons. Motor exam is approximately 4 on a scale of 5, but equal and symmetrical with dorsiflexion, extension, quadriceps and hamstring flexion. Peripheral pulses are 1+ posterior tibia. No peripheral edema is noted. PLAN: Options were discussed with the patient. The patient's old chart was reviewed as her current medication regimen updated. Current review of systems updated today as well and she has been doing physical therapy and stretching and strengthening on her own, also has a pool in her apartment complex which she has been using until the last 1-2 weeks with good mobility, but still significant pain following a radicular pattern in the L5-S1 dermatomal distribution bilaterally, again worse on the right than the left. The patient would like to proceed with interventional techniques. We discussed a caudal approach lumbar epidural steroid injection. She has done very well with these in the past with similar symptoms. The patient will continue with physical therapy, walking, stretching, etc. We will have preauthorization obtained for a caudal approach lumbar epidural steroid injection on her return for her bilateral L5-S1 radiculopathies. The patient understands and agrees. The patient was given samples of Jayden 5 mg to take at night before bed as well with instructions, side effects to be aware of. PATRICK WEST MD DR: MAXX/mac JOB#: [id number] / [id number]
== END ==
LOC: PNCL 11:17
PROVIDERS: ATTEND Anesthesiology
DX: M51.16 Intervertebral disc disorders with radiculopathy, lumbar region (principal); M96.1 Postlaminectomy syndrome, not elsewhere classified
CPT/HCPCS: G0463

== ENCOUNTER → 2019-11-05 | Outpatient (CLI) | payer OTHER ==
[2015-09-09 14:12] VITALS: BP 146/84
[~2019-11-05] MED LIST changes: +HYDR-2765 PO; +IOHEXOL 180 MG/ML 10 ML VIAL. ONE; +methylPREDNISolone ACETATE 40 MG/ML VIAL. ONE; +methylPREDNISolone ACETATE 80 MG/ML VIAL. ONE
--- NOTE | 2019-11-05 11:37 | PAIN ---
DATE OF SERVICE: 11/05/2019 PROGRESS NOTE FOR PAIN CLINIC DIAGNOSES: Lumbar radiculopathy with lumbar degenerative disk disease and lumbar post-laminectomy syndrome. HISTORY OF PRESENT ILLNESS: The patient is a 49-year-old female who returns for followup status post caudal approach epidural steroid injections, most recently 12/2016. The patient did very well. She returned for preauthorization, which she has obtained now, still has significant pain in low back, right lower extremity, posterior gluteus, posterior thigh, posterior calf as well as anterior thigh and calf as well. The patient reports it is aching, sharp, dull, tight, severe and unbearable at times, worse with walking, standing, changing positions. The patient reports anywhere from a 7-8 at its worst, 6-7 on average and a 6 at its least and is a 6 today. The patient reports it is severe, aching and dull and is radiating to the lower extremity as described on the right side only. No significant pain in the left side, again worse with walking, standing, better with sitting or lying down, does not awaken her from sleep at night. The patient reports no new motor or sensory deficits, no new bowel or bladder incontinence or other complaints. PHYSICAL EXAMINATION: VITAL SIGNS: The patient's blood pressure is 151/85, pulse 90, respirations 18, temperature is 98.6 degrees Fahrenheit, height is 5 feet 8 inches, weight is 384 pounds. GENERAL: The patient is awake, alert, oriented, appropriate, very pleasant demeanor. HEENT: Shows normocephalic, atraumatic. Extraocular movements are intact and symmetrical. Oral cavity: Mucous membranes are moist and pink. Dentition is intact. NECK: Shows anterior throat supple without palpable lymphadenopathy noted. Swallow reflex symmetrical. CHEST: Shows normal on inspection. Breath sounds are clear bilaterally. HEART: Shows S1, S2 clear. No murmurs auscultated. ABDOMEN: Soft, obese, nontender, nondistended. BACK: Shows spine grossly in the midline. Normal appearing thoracic kyphosis and minor flattening of lumbar lordotic curvature. Well-healed surgical scar noted. Lumbar paraspinous muscle shows symmetrical on inspection, on palpation shows some moderate tenderness diffusely bilaterally going diffusely without significant radiation. The patient has good rotational motion of lumbar spine, both laterally as well as extension and flexion without significant exacerbation of pain. EXTREMITIES: Lower extremities show deep tendon reflexes at 1+ in the patellar and tendo calcaneus tendons. Motor exam is 4 on a scale of 5, but equal with dorsiflexion, extension, quadriceps and hamstring flexion and symmetrical. Peripheral pulses are 1+. No peripheral edema is noted. Options were discussed with the patient. The patient's old chart was reviewed as her current medication regimen updated. Current review of systems updated today as well. We will proceed with a caudal approach epidural steroid injection today with fluoroscopic guidance. Risks were again discussed including, but not limited to bleeding, infection, possibility of epidural hematoma, subsequent neurological compromise, dural puncture, headaches, spinal cord and/or nerve damage, side effects of steroid medication and poor results regarding pain control. The patient understands and wished to proceed. The patient will return to clinic in approximately 2 weeks for followup, was counseled on return appointment, activity level and side effects to be aware of. DIAGNOSES: Lumbar radiculopathy with lumbar degenerative disk disease and lumbar post-laminectomy syndrome. PROCEDURE: Lumbar epidural steroid injection, caudal approach using C-arm fluoroscopic guidance under sterile prep and drape using local anesthetic. MEDICATION INJECTED: A total of 120 mg of Depo-Medrol plus 10 mL of preservative-free normal saline and 2 mL of contrast. CONDITION AT DISCHARGE: Stable. The patient tolerated the procedure well, had no complications. PATRICK WEST MD DR: MAXX/mac JOB#: [id number] / [id number]
== END ==
LOC: PNCL 10:29
PROVIDERS: ATTEND Anesthesiology
DX: M51.16 Intervertebral disc disorders with radiculopathy, lumbar region (principal); M96.1 Postlaminectomy syndrome, not elsewhere classified
CPT/HCPCS: 62323; J1030; J1040; Q9965

== ENCOUNTER 2019-12-20 17:39 | Emergency (ER) | payer OTHER ==
[~2019-12-20] VITALS: Ht 172.7 cm; Wt 170.0 kg
[~2019-12-20 17:39] MED LIST changes: -IOHEXOL 180 MG/ML 10 ML VIAL. ONE; -methylPREDNISolone ACETATE 40 MG/ML VIAL. ONE; -methylPREDNISolone ACETATE 80 MG/ML VIAL. ONE
--- NOTE | 2019-12-20 18:42 | RAD ---
PORTABLE CHEST 1V History: Shortness of breath Comparison: September 22 2015 Findings: No consolidation or pleural effusion. Normal heart size. No pneumothorax. Impression: 1. No acute cardiopulmonary process. Electronically signed by: Yo Watts DO (12/20/2019 6:40 PM) [facility]
[2019-12-20 19:02] LABS: BASO # 0.1 x10^3/uL (0.0-0.2); BASO % 1 % (0-3); EOS % 0 % (0-3); HEMATOCRIT 34.5 % (36.0-47.0); HEMOGLOBIN 11.3 g/dL (12.0-15.5); LYMPH # 3.2 x10^3/uL (1.0-4.8); LYMPH % 21 % (24-48); MEAN CORPUSCULAR HEMOGLOBIN 28 pg (25-35); MEAN CORPUSCULAR HGB CONC 33 g/dL (31-37); MEAN CORPUSCULAR VOLUME 85 fL (79-100); MONO # 0.6 x10^3/uL (0.0-1.1); MONO % 4 % (0-9); NEUT # 10.9 x10^3/uL (1.8-7.7); NEUT % 74 % (31-73); PLATELET COUNT 374 x10^3/uL (140-400); RED BLOOD COUNT 4.07 x10^6/uL (3.50-5.40); RED CELL DISTRIBUTION WIDTH 14.8 % (11.5-14.5); WHITE BLOOD COUNT 14.8 x10^3/uL (4.0-11.0)
[2019-12-20 19:13] LABS: CALCIUM 9.1 mg/dL (8.5-10.1); CREATININE 1.1 mg/dL (0.6-1.0); GFR 52.6; POTASSIUM 3.6 mmol/L (3.5-5.1)
[2019-12-20 19:18] VITALS: BP 141/64
[2019-12-20 19:19] LABS: ALBUMIN 3.3 g/dL (3.4-5.0); TOTAL BILIRUBIN 0.2 mg/dL (0.2-1.0); TOTAL PROTEIN 6.5 g/dL (6.4-8.2)
[2019-12-20 19:21] LABS: BILIRUBIN,URINE SMALL (NEG); CLARITY,URINE CLEAR; NITRITE,URINE NEGATIVE (NEG); PH,URINE 5.5 (<5.0-8.0); PROTEIN,URINE 30 mg/dL (NEG-TRACE); UROBILINOGEN,URINE 0.2 mg/dL (0.2 mg/dL)
[2019-12-20 19:24] LABS: COLOR,URINE DK YELLOW
[2019-12-20 19:36] LABS: BACTERIA,URINE FEW /HPF (0-FEW); RBC,URINE OCC /HPF (0-2); SQUAMOUS EPITHELIAL CELL,UR MANY /LPF; WBC,URINE OCC /HPF (0-4)
[2019-12-20 19:37] LABS: HYALINE CASTS, URINE MANY /HPF
--- NOTE | 2019-12-20 19:52 | PHYS DOC ---
Past Medical History Past Medical History: Asthma, CHF, COPD, Depression, GERD, High Cholesterol, Hypertension, Migraines Additional Past Medical Histor: jose luis aparicio virus, RLS LOWER BACK PAINSLEEP APNEA Past Surgical History: Cholecystectomy Additional Past Surgical Histo: back surgery Smoking Status: Never Smoker Alcohol Use: Sober Drug Use: Marijuana General Adult EDM: Chief Complaint: WEIGHT GAIN HPI: HPI: Patient is a 49 year old female who presents with complaint of 4-1/2 pound weight gain over the last 24 hours. Patient indicates that she has a history of CHF and takes Lasix on a daily basis. She states that she had been taking Lasix twice daily and had been instructed to decrease that to once daily. She states that she took the Lasix yesterday and when she woke up today she noticed that she was 4-1/2 pounds heavier. She denies any shortness of breath but is concerned that she could be developing early CHF. She denies chest pain. She also indicates that she has some bloating in her abdomen has if her abdomen is carrying fluid. [] Review of Systems: Review of Systems: Constitutional: Denies fever or chills. [] Respiratory: Denies cough or shortness of breath. [] Cardiovascular: Denies chest pain or edema. [] GI: Denies abdominal pain, nausea, vomiting or diarrhea. [] Integument: Denies rash. [] Neurologic: Denies headache, focal weakness or sensory changes. [] A full 10 point review of systems has been reviewed and is otherwise negative. Heart Score: Risk Factors: Risk Factors: DM, Current or recent (<one month) smoker, HTN, HLP, family history of CAD, obesity. Risk Scores: Score 0 - 3: 2.5% MACE over next 6 weeks - Discharge Home Score 4 - 6: 20.3% MACE over next 6 weeks - Admit for Clinical Observation Score 7 - 10: 72.7% MACE over next 6 weeks - Early Invasive Strategies Allergies: Allergies: Allergies Coded Allergies Type Severity Reaction Last Updated Verified NSAIDS (Non-Steroidal Anti-Inflamma Allergy Severe BLEEDING 12/20/19 Yes Penicillins Allergy Intermediate Hives 05/24/14 Yes levofloxacin Allergy Intermediate joint pain 05/24/14 Yes Physical Exam: PE: Constitutional: Well developed, well nourished, no acute distress, non-toxic appearance. [] HENT: Normocephalic, atraumatic, bilateral external ears normal, oropharynx moist, no oral exudates, nose normal. [] Eyes: PERRLA, EOMI, conjunctiva normal, no discharge. [] Neck: Normal range of motion, no tenderness, supple, no stridor. [] Cardiovascular: Regular rate and rhythm [] Lungs & Thorax: Bilateral breath sounds clear to auscultation [] Abdomen: Bowel sounds normal, soft, no tenderness. [] Skin: Warm, dry, no erythema, no rash. [] Extremities: No tenderness, no cyanosis, no clubbing, ROM intact, no edema. [] Neurologic: Alert and oriented X 3, no focal deficits noted. [] Current Patient Data: Labs: Laboratory Tests Test 12/20/19 18:45 12/20/19 19:15 White Blood Count 14.8 x10^3/uL (4.0-11.0) H Red Blood Count 4.07 x10^6/uL (3.50-5.40) Hemoglobin 11.3 g/dL (12.0-15.5) L Hematocrit 34.5 % (36.0-47.0) L Mean Corpuscular Volume 85 fL (79-100) Mean Corpuscular Hemoglobin 28 pg (25-35) Mean Corpuscular Hemoglobin Concent 33 g/dL (31-37) Red Cell Distribution Width 14.8 % (11.5-14.5) H Platelet Count 374 x10^3/uL (140-400) Neutrophils (%) (Auto) 74 % (31-73) H Lymphocytes (%) (Auto) 21 % (24-48) L Monocytes (%) (Auto) 4 % (0-9) Eosinophils (%) (Auto) 0 % (0-3) Basophils (%) (Auto) 1 % (0-3) Neutrophils # (Auto) 10.9 x10^3/uL (1.8-7.7) H Lymphocytes # (Auto) 3.2 x10^3/uL (1.0-4.8) Monocytes # (Auto) 0.6 x10^3/uL (0.0-1.1) Eosinophils # (Auto) 0.0 x10^3/uL (0.0-0.7) Basophils # (Auto) 0.1 x10^3/uL (0.0-0.2) Sodium Level 138 mmol/L (136-145) Potassium Level 3.6 mmol/L (3.5-5.1) Chloride Level 103 mmol/L (98-107) Carbon Dioxide Level 26 mmol/L (21-32) Anion Gap 9 (6-14) Blood Urea Nitrogen 15 mg/dL (7-20) Creatinine 1.1 mg/dL (0.6-1.0) H Estimated GFR (Cockcroft-Gault) 52.6 BUN/Creatinine Ratio 14 (6-20) Glucose Level 110 mg/dL (70-99) H Calcium Level 9.1 mg/dL (8.5-10.1) Total Bilirubin 0.2 mg/dL (0.2-1.0) Aspartate Amino Transferase (AST) 14 U/L (15-37) L Alanine Aminotransferase (ALT) 21 U/L (14-59) Alkaline Phosphatase 108 U/L (46-116) Troponin I Quantitative < 0.017 ng/mL (0.000-0.055) IO-Hkv-M-Type Natriuretic Peptide 125 pg/mL (0-124) H Total Protein 6.5 g/dL (6.4-8.2) Albumin 3.3 g/dL (3.4-5.0) L Albumin/Globulin Ratio 1.0 (1.0-1.7) Urine Collection Type Unknown Urine Color Dk yellow Urine Clarity Clear Urine pH 5.5 (<5.0-8.0) Urine Specific [place] >=1.030 (1.000-1.030) Urine Protein 30 mg/dL (NEG-TRACE) Urine Glucose (UA) Negative mg/dL (NEG) Urine Ketones (Stick) Trace mg/dL (NEG) Urine Blood Small (NEG) Urine Nitrite Negative (NEG) Urine Bilirubin Small (NEG) Urine Urobilinogen Dipstick 0.2 mg/dL (0.2 mg/dL) Urine Leukocyte Esterase Negative (NEG) Urine RBC Occ /HPF (0-2) Urine WBC Occ /HPF (0-4) Urine Squamous Epithelial Cells Many /LPF Urine Bacteria Few /HPF (0-FEW) Urine Hyaline Casts Many /HPF Urine Mucus Marked /LPF Laboratory Tests 12/20/19 18:45 Laboratory Tests 12/20/19 18:45 Vital Signs: Vital Signs Date Time Temp Pulse Resp B/P (MAP) Pulse Ox O2 Delivery O2 Flow Rate FiO2 12/20/19 18:03 98.4 110 22 150/72 (98) 98 Room Air 98.4 EKG: EKG: [] Radiology/Procedures: Radiology/Procedures: [] Course & Med Decision Making: Course & Med Decision Making Pertinent Labs and Imaging studies reviewed. (See chart for details) [] Dragon Disclaimer: Dragon Disclaimer: This electronic medical record was generated, in whole or in part, using a voice recognition dictation system. Departure Departure Impression: Primary Impression: Weight gain Disposition: HOME, SELF-CARE Condition: STABLE Referrals: CIRA MERCER MD (PCP) Patient Instructions: Form - Daily Weight Record STALIN SHAY Jr. DO December 20, 2019 19:52
--- NOTE | 2019-12-21 06:54 | EKG ---
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
== END 2019-12-20 20:08 | disposition home or self-care (01) ==
LOC: ER 17:39
DX: R63.5 Abnormal weight gain (principal); Z68.43 Body mass index [BMI] 50.0-59.9, adult; J44.9 Chronic obstructive pulmonary disease, unspecified; I11.0 Hypertensive heart disease with heart failure; I50.9 Heart failure, unspecified; K21.9 Gastro-esophageal reflux disease without esophagitis; E78.00 Pure hypercholesterolemia, unspecified; G43.909 Migraine, unspecified, not intractable, without status migrainosus; Z98.890 Other specified postprocedural states; Z90.49 Acquired absence of other specified parts of digestive tract; Z88.0 Allergy status to penicillin; Z88.1 Allergy status to other antibiotic agents; Z88.6 Allergy status to analgesic agent
CPT/HCPCS: 36415; 71045; 80053; 81001; 83880; 84484; 85025; 93005; 99285-25

== ENCOUNTER 2020-06-28 17:45 | Emergency (ER) | payer OTHER ==
[~2020-06-28] VITALS: Ht 170.2 cm; Wt 140.0 kg
[~2020-06-28 17:45] MED LIST changes: -OXYC-411 PO; +OXYC1TAB20 PO
--- NOTE | 2020-06-28 18:07 | PHYS DOC ---
Past Medical History Past Medical History: Asthma, CHF, COPD, Depression, GERD, High Cholesterol, Hypertension, Migraines Additional Past Medical Histor: jose luis aparicio virus, RLS LOWER BACK PAINSLEEP A PNEA (LATA APODACA DO) Past Surgical History: Cholecystectomy Additional Past Surgical Histo: back surgery (LATA APODACA DO) Smoking Status: Never Smoker Alcohol Use: Sober Drug Use: Marijuana (LATA APODACA DO) General Adult EDM: Chief Complaint: WITHDRAWL HPI: HPI: 49-year-old female past medical history significant for CHF, obesity, hypertension, hyperlipidemia, GERD with history of gastric bypass 3 months ago, presents to the ED with complaints of " I think I am in withdrawal," concern for upper extremity shaking, hearing voices and seeing things on the wall. Patient states she has been sober for 2 years. Was binge drinking for the past week. Last drink was 2 days ago. No history of alcohol withdrawal seizures. States she feels dehydrated and is requesting fluids. Pt is requesting an ativan but nothing with nsaids or sugar in it. (LATA APODACA DO) Review of Systems: Review of Systems: Constitutional: Denies fever or chills. [] Eyes: Denies change in visual acuity. [] HENT: Denies nasal congestion or sore throat. [] Respiratory: Denies cough or shortness of breath. [] Cardiovascular: Denies chest pain or edema. [] GI: Denies abdominal pain, nausea, vomiting, bloody stools or diarrhea. [] : Denies dysuria. [] Musculoskeletal: Denies back pain or joint pain. [] Integument: Denies rash. [] Neurologic: Denies headache, focal weakness or sensory changes. [] Endocrine: Denies polyuria or polydipsia. [] Lymphatic: Denies swollen glands. [] Psychiatric: Denies SI or HI (LATA APODACA DO) Heart Score: Risk Factors: Risk Factors: DM, Current or recent (<one month) smoker, HTN, HLP, family history of CAD, obesity. Risk Scores: Score 0 - 3: 2.5% MACE over next 6 weeks - Discharge Home Score 4 - 6: 20.3% MACE over next 6 weeks - Admit for Clinical Observation Score 7 - 10: 72.7% MACE over next 6 weeks - Early Invasive Strategies (RADHA APODACABrendan Gillis DO) Current Medications: Current Medications Medications (Trade) Dose Ordered Sig/Ga Start Time Stop Time Status Last Admin Dose Admin Multivitamins 10 ml/Thiamine HCl 100 mg/Folic Acid 1 mg/Sodium Chloride 1,011.2 ml @ 1,000.088 mls/hr 1X ONCE 06/28/20 18:00 06/28/20 19:00 [facility] Allergies: Allergies: Allergies Coded Allergies Type Severity Reaction Last Updated Verified NSAIDS (Non-Steroidal Anti-Inflamma Allergy Severe BLEEDING 12/20/19 Yes Penicillins Allergy Intermediate Hives 05/24/14 Yes levofloxacin Allergy Intermediate joint pain 05/24/14 Yes ([facility]) Physical Exam: PE: Constitutional: Well developed, well nourished, no acute distress, non-toxic appearance. HENT: Normocephalic, atraumatic, dry mucous membranes Eyes: EOMI, conjunctiva normal, no discharge. Neck: Normal range of motion, supple, Cardiovascular: S1/2 present, regular rhythm Lungs & Thorax: Speaking in full sentences, bilateral equal chest rise, no tachypnea or increased work of breathing Abdomen: soft, no tenderness, Skin: Warm, dry, no erythema, no rash. [] Back: No tenderness, no CVA tenderness. [] Extremities: No tenderness, no cyanosis, no edema, mild ue tremors Neurologic: Alert and oriented X 3, normal motor function, normal sensory function, no focal deficits noted. [] Psychologic: Affect normal, judgement normal, mood -anxious (GREGLATA DO) PE: Constitutional: Well developed, obese, no acute distress, non-toxic appearance HENT: Normocephalic, atraumatic Eyes: Conjunctiva normal, no discharge Neck: Normal range of motion, no tenderness, supple Lungs & Thorax: No respiratory distress, equal chest rise and fall Abdomen: Soft, no tenderness, no guarding/rebound tenderness/distention Skin: Warm, dry, no erythema, no rash Extremities: No tenderness, ROM intact, no edema Neurologic: Alert and oriented X 3, no focal deficits noted Psychologic: Affect anxious, judgment normal (AGUSTIN FIELD DO) EKG: EKG: Sinus rhythm 80 bpm, no axis deviation, normal intervals, T wave inversion V2, no ST elevations or ST depressions (LATA APODACA DO) Radiology/Procedures: Radiology/Procedures: [] (LATA APODACA DO) Course & Med Decision Making: Course & Med Decision Making Pertinent Labs and Imaging studies reviewed. (See chart for details) Patient was seen on arrival by myself in ED and work-up was started, ekg and vitals reviewed by myself. Medications ordered. Due to shift change patient was signed out to oncoming physician Dr. Field. (LATA APODACA DO) Course & Med Decision Making 1800- Signout received from Dr. Apodaca for patient with history of recent binge drinking. Patient concerned for possible withdrawal symptoms. Reports prior h allucinations. Denies hx of DTs. Ativan and banana bag previously provided. Patient pending laboratory results. LFTs slightly elevated. Patient with some improvement but reports nausea returned. Decision to allow patient to detox at home with librium and can follow with detox facility as needed. [facility] referral handout given. Librium started. Reglan/benadryl also provided. Rx for phenergan supp given. Patient stable for discharge with outpatient follow-up with PCP. Discussed findings and plan with patient, who acknowledges understanding and agreement. (AGUSTIN FIELD DO) Dragon Disclaimer: Dragon Disclaimer: This electronic medical record was generated, in whole or in part, using a voice recognition dictation system. (LATA APODACA DO) Departure Departure Impression: Primary Impression: Alcohol withdrawal Qualified Codes: F10.232 - Alcohol dependence with withdrawal with perceptual disturbance Disposition: 01 DC HOME SELF CARE/HOMELESS Condition: STABLE Referrals: CIRA MERCER MD (PCP) Patient Instructions: Alcohol Withdrawal, [id number], Alcohol and Drug Addiction, Finding Treatment Additional Instructions: Please call [facility] at to seek help for your mental health and/or drug/alcohol abuse. Scripts Promethazine Hcl (PROMETHAZINE HCL) 25 Mg Supp.rect 25 MG RC Q6H PRN for NAUSEA/VOMITING, #10 SUPP.RECT Prov: AGUSTIN FIELD DO 06/28/20 Chlordiazepoxide Hcl (CHLORDIAZEPOXIDE HCL) 25 Mg Capsule 25 MG PO UD, #15 CAP Day 1: Take 50mg PO q6h Day 2: Take 25mg PO q6h Day 3: Take 25mg PO q12 Day 4: Take 25mg PO qhs Prov: AGUSTIN FIELD DO 06/28/20 LATA APODACA DO Jun 28, 2020 18:06 AGUSTIN FIELD DO Jun 28, 2020 20:54
[2020-06-28 18:30] LABS: BASO # 0.1 x10^3/uL (0.0-0.2); BASO % 1 % (0-3); EOS % 0 % (0-3); HEMATOCRIT 37.7 % (36.0-47.0); HEMOGLOBIN 12.4 g/dL (12.0-15.5); LYMPH # 2.5 x10^3/uL (1.0-4.8); LYMPH % 26 % (24-48); MEAN CORPUSCULAR HEMOGLOBIN 27 pg (25-35); MEAN CORPUSCULAR HGB CONC 33 g/dL (31-37); MEAN CORPUSCULAR VOLUME 82 fL (79-100); MONO # 0.3 x10^3/uL (0.0-1.1); MONO % 4 % (0-9); NEUT # 6.5 x10^3/uL (1.8-7.7); NEUT % 69 % (31-73); PLATELET COUNT 271 x10^3/uL (140-400); RED BLOOD COUNT 4.59 x10^6/uL (3.50-5.40); RED CELL DISTRIBUTION WIDTH 16.8 % (11.5-14.5); WHITE BLOOD COUNT 9.4 x10^3/uL (4.0-11.0)
[2020-06-28] MEDS ORDERED: ONDANSETRON PF 4 MG/2 ML VIAL. IVP ONE (18:30)
[2020-06-28] MEDS ORDERED: MULTIVIT INFUSN,ADULT 4,VIT K 10 ML, THIAMINE INJ 100 MG, FOLIC ACID INJ 1 MG in IV NOR... IV ONE (18:30)
[2020-06-28 18:40] LABS: CALCIUM 9.3 mg/dL (8.5-10.1); CREATININE 1.2 mg/dL (0.6-1.0); GFR 47.6; POTASSIUM 3.4 mmol/L (3.5-5.1)
[2020-06-28 18:46] LABS: ALBUMIN/GLOBULIN RATIO 0.9 (1.0-1.7); TOTAL BILIRUBIN 0.5 mg/dL (0.2-1.0); TOTAL PROTEIN 6.2 g/dL (6.4-8.2)
[2020-06-28] MEDS ORDERED: PROM25SU33 RC (20:50)
[2020-06-28] MEDS ORDERED: CHLO25CA9 PO (20:50)
[2020-06-28 21:00] VITALS: BP 153/87
[2020-06-28] MEDS ORDERED: FAMOTIDINE 20 MG/2 ML VIAL IVP ONE (21:15)
[2020-06-28] MEDS ORDERED: diphenhydrAMINE 50 MG/ML VIAL IVP ONE (21:15)
[2020-06-28] MEDS ORDERED: METOCLOPRAMIDE HCL 10 MG/2 ML VIAL. IVP ONE (21:15)
[2020-06-28] MEDS ORDERED: chlordiazePOXIDE HCL 25 MG CAPSULE PO ONE (21:15)
--- NOTE | 2020-06-30 07:57 | EKG ---
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
== END 2020-06-28 21:10 | disposition home or self-care (01) ==
LOC: ER 17:45
DX: F10.232 Alcohol dependence with withdrawal with perceptual disturbance (principal); Y90.0 Blood alcohol level of less than 20 mg/100 ml; G43.909 Migraine, unspecified, not intractable, without status migrainosus; E78.00 Pure hypercholesterolemia, unspecified; I11.0 Hypertensive heart disease with heart failure; I50.9 Heart failure, unspecified; K21.9 Gastro-esophageal reflux disease without esophagitis; E78.5 Hyperlipidemia, unspecified; G25.81 Restless legs syndrome; Z88.0 Allergy status to penicillin; Z88.1 Allergy status to other antibiotic agents; Z88.6 Allergy status to analgesic agent
CPT/HCPCS: 36415; 80053; 85025; 93005; 96365; 96366; 96375; 99285; G0480; J1200; J2060; J2405; J2765; J3411; J3490; J7030

== ENCOUNTER 2020-07-30 10:40 | Inpatient (IN) | payer OTHER ==
[~2020-07-30] VITALS: Ht 172.7 cm; Wt 130.6 kg
[~2020-07-30 10:40] MED LIST changes: -LISI-334 PO; +LISI20TA18 PO; -OMEP40CA45 PO; +OMEP40CA7 PO; +PROM25SU33 RC
--- NOTE | 2020-07-30 10:55 | ED.ADGEN ---
Past Medical History Past Medical History: Asthma, CHF, COPD, Depression, GERD, High Cholesterol, Hypertension, Migraines Additional Past Medical Histor: jose luis aparicio virus, RLS LOWER BACK PAINSLEEP A PNEA Past Surgical History: Cholecystectomy Additional Past Surgical Histo: back surgery Smoking Status: Never Smoker Alcohol Use: Heavy Drug Use: Marijuana General Adult HPI: HPI: Patient is a 50 year old female who arrives via EMS complaining of injuries related to a fall 1 week previously. Patient reports she was in her bathroom 1 week previously and slipped. In doing so she landed awkwardly and now has injuries related to her knees bilaterally as well as her ankles bilaterally. Patient has notable swelling with ecchymosis of her ankles bilaterally and states whenever she walks she feels very unsteady as it relates to joint integrity. Patient also states that she has occasional sharp shooting pain of her right knee which she also reports to feeling unstable upon. Patient states she does have mild pain of her left knee however it is not as significant as that of her right knee. The patient reports initially she tried to avoid any medical evaluation however she was remanded to her bed because of pain associated with the fall. She reports she tried to seek evaluation on Tuesday of this week however the clinic she attended did not have imaging available. The patient states she avoided seeking medical attention yesterday because of weather. She states she cannot wait any longer given her inability to ambulate. She denies any head or neck trauma. She further denies any chest or abdominal pain. She is awake, alert and nontoxic appearing. Review of Systems: Review of Systems: Constitutional: Denies fever or chills. [] Eyes: Denies change in visual acuity. [] HENT: Denies nasal congestion or sore throat. [] Respiratory: Denies cough or shortness of breath. [] Cardiovascular: Denies chest pain or edema. [] GI: Denies abdominal pain, nausea, vomiting, bloody stools or diarrhea. [] : Denies dysuria. [] Musculoskeletal: Reports extremity/joint pain. Denies back pain. [] Integument: Reports bruising as well as swelling. Denies rash. [] Neurologic: Denies headache, focal weakness or sensory changes. [] Endocrine: Denies polyuria or polydipsia. [] Lymphatic: Denies swollen glands. [] Psychiatric: Denies depression or anxiety. [] Family History: Family History: Noncontributory Current Medications: Allergies: Allergies: Allergies Coded Allergies Type Severity Reaction Last Updated Verified NSAIDS (Non-Steroidal Anti-Inflamma Allergy Severe BLEEDING 12/20/19 Yes Penicillins Allergy Intermediate Hives 05/24/14 Yes levofloxacin Allergy Intermediate joint pain 05/24/14 Yes Physical Exam: PE: Constitutional: Well developed, well nourished, no acute distress, non-toxic appearance. [] HENT: Normocephalic, atraumatic, bilateral external ears normal, oropharynx moist, no oral exudates, nose normal. [] Eyes: PERRLA, EOMI, conjunctiva normal, no discharge. [] Neck: Normal range of motion, no tenderness, supple, no stridor. [] Cardiovascular:Heart rate regular rhythm, no murmur [] Lungs & Thorax: Bilateral breath sounds clear to auscultation [] Abdomen: Bowel sounds normal, soft, no tenderness, no masses, no pulsatile masses. [] Skin: Warm, dry, no erythema, no rash. [] Back: No tenderness, no CVA tenderness. [] Extremities: Patient has swelling with ecchymosis bilaterally of her ankles to denote an acute/subacute injury. There is also tenderness to palpation of the right knee without any external signs of trauma present. The patient does have full range of motion of both knees. The left knee is minimally tender but does have full range of motion. Neurologic: Alert and oriented X 3, normal motor function, normal sensory function, no focal deficits noted. [] Psychologic: Affect normal, judgement normal, mood normal. [] Current Patient Data: Vital Signs: Vital Signs Date Time Temp Pulse Resp B/P (MAP) Pulse Ox O2 Delivery O2 Flow Rate FiO2 07/30/20 11:59 72 20 175/81 (112) 99 Room Air 07/30/20 10:40 98.5 98.5 EKG: EKG: [] Heart Score: Risk Factors: Risk Factors: DM, Current or recent (<one month) smoker, HTN, HLP, family history of CAD, obesity. Risk Scores: Score 0 - 3: 2.5% MACE over next 6 weeks - Discharge Home Score 4 - 6: 20.3% MACE over next 6 weeks - Admit for Clinical Observation Score 7 - 10: 72.7% MACE over next 6 weeks - Early Invasive Strategies Radiology/Procedures: Radiology/Procedures: [] Impression: [facility] [address] [place] [address] IMAGING REPORT Signed PATIENT: DAMIAN JARVIS ACCOUNT: [id number] : 1970 LOCATION: ER AGE: 50 SEX: F EXAM STATUS: REG ER ORD. PHYSICIAN: KURTIS PONCE DO REASON: Trauma Fell one week ago bilateral foot/toe pain and bruising PROCEDURE: FOOT BILAT 3V XR FEET 3 VIEWS, XR EXAM OF ANKLE 3V History: Reason: Trauma Fell one week ago bilateral foot/toe pain and bruising / Spl. Instructions: / History: Technique: 3 views bilateral ankles and bilateral feet. Comparison: None. Findings: Right foot and ankle: Acute right distal fibular oblique minimally displaced f racture. Irregularity of the inferior malleolus with adjacent linear calcifications. Ankle soft tissue swelling. Widening of the ankle mortise most prominent medially. Plantar calcaneal spur. Normal alignment of the foot. Moderate right first MTP DJD. Left foot and ankle: Ankle soft tissue swelling. Normal alignment. Symmetric ankle mortise. No acute ankle fracture. Plantar calcaneal spur. Acute left fifth metatarsal head intra-articular fracture. There is adjacent soft tissue swelling. Mild regularity of the fifth proximal phalanx base. Dorsal foot soft tissue swelling. Otherwise, normal alignment of the foot. Impression: Right foot and ankle: 1. Acute minimally displaced right lateral malleolus fracture. 2. Irregularity of the medial malleolus concerning for acute avulsion fracture. 3. Widening of the ankle mortise. 4. Ankle soft tissue swelling. Left foot and ankle: 1. Acute left fifth metatarsal head intra-articular fracture with adjacent soft tissue swelling. 2. Mild irregularity of the left fifth proximal phalanx base, may represent nondisplaced fracture. 3. Ankle soft tissue swelling. Electronically signed by: Yo Watts DO (07/30/2020 11:42 AM) [id number] [facility] [address] [place] [address] IMAGING REPORT Signed PATIENT: DAMIAN JARVIS ACCOUNT: [id number] : 1970 LOCATION: ER AGE: 50 SEX: F EXAM STATUS: REG ER ORD. PHYSICIAN: KURTIS PONCE DO REASON: Trauma Fell one week ago bilateral knee pain PROCEDURE: KNEE BILAT 3V XR KNEE 3 VIEWS History: Reason: Trauma Fell one week ago bilateral knee pain / Spl. Instructions: / History: Pain Technique: 3 views bilateral knees. Comparison: None. Findings: Right knee: Normal alignment. No fracture. Minimal knee joint effusion. Mild medial compartment degenerative changes. Minimal patellar spurring. Left knee: Normal alignment. No fracture. Mild to moderate medial compartment degenerative changes. Mild patellar spurring. No significant knee joint effusion although lateral view evaluation is degraded due to patient positioning. Impression: 1. No acute osseous abnormality. 2. Bilateral medial compartment knee DJD, left greater than right. Electronically signed by: Yo Watts DO (07/30/2020 11:33 AM) [id number] DICTATED and SIGNED BY: YO WATTS DO DATE: 07/30/20 [id number] Course & Med Decision Making: Course & Med Decision Making Pertinent Labs and Imaging studies reviewed. (See chart for details) [] Yvonne Disclaimer: Yvonne Disclaimer: This electronic medical record was generated, in whole or in part, using a voice recognition dictation system. Departure Departure Impression: Primary Impression: Closed right ankle fracture Additional Impressions: Foot fracture, left Fall at home Disposition: 09 ADMITTED INPT THIS HOSP Admitting Physician: LU Condition: GOOD Referrals: CIRA MERCER MD (PCP) Splinting Splinting : Splint: posterior walking (With stirrup) Pre-Proc Neuro Vasc Exam: normal Post-Proc Neuro Vasc Exam: normal Problem Qualifiers KURTIS PONCE DO Jul 30, 2020 10:54
--- NOTE | 2020-07-30 11:35 | RAD ---
XR KNEE 3 VIEWS History: Reason: Trauma Fell one week ago bilateral knee pain / Spl. Instructions: / History: Pain Technique: 3 views bilateral knees. Comparison: None. Findings: Right knee: Normal alignment. No fracture. Minimal knee joint effusion. Mild medial compartment degen erative changes. Minimal patellar spurring. Left knee: Normal alignment. No fracture. Mild to moderate medial compartment degenerative changes. M ild patellar spurring. No significant knee joint effusion although lateral view evaluation is degrade d due to patient positioning. Impression: 1. No acute osseous abnormality. 2. Bilateral medial compartment knee DJD, left greater than right. Electronically signed by: Yo Watts DO (07/30/2020 11:33 AM) [id number]
--- NOTE | 2020-07-30 11:45 | RAD ---
XR FEET 3 VIEWS, XR EXAM OF ANKLE 3V History: Reason: Trauma Fell one week ago bilateral foot/toe pain and bruising / Spl. Instructions: / History: Technique: 3 views bilateral ankles and bilateral feet. Comparison: None. Findings: Right foot and ankle: Acute right distal fibular oblique minimally displaced fracture. Irregularity o f the inferior malleolus with adjacent linear calcifications. Ankle soft tissue swelling. Widening of the ankle mortise most prominent medially. Plantar calcaneal spur. Normal alignment of the foot. Moderate right first MTP DJD. Left foot and ankle: Ankle soft tissue swelling. Normal alignment. Symmetric ankle mortise. No acute ankle fracture. Plantar calcaneal spur. Acute left fifth metatarsal head intra-articular fracture. There is adjacent soft tissue swelling. Mi ld regularity of the fifth proximal phalanx base. Dorsal foot soft tissue swelling. Otherwise, normal alignment of the foot. Impression: Right foot and ankle: 1. Acute minimally displaced right lateral malleolus fracture. 2. Irregularity of the medial malleolus concerning for acute avulsion fracture. 3. Widening of the ankle mortise. 4. Ankle soft tissue swelling. Left foot and ankle: 1. Acute left fifth metatarsal head intra-articular fracture with adjacent soft tissue swelling. 2. Mild irregularity of the left fifth proximal phalanx base, may represent nondisplaced fracture. 3. Ankle soft tissue swelling. Electronically signed by: Yo Watts DO (07/30/2020 11:42 AM) [id number]
[2020-07-30] MEDS ORDERED: MORPHINE SULFATE 4 MG/ML VIAL. IV ONE (12:30)
[2020-07-30] MEDS ORDERED: ONDANSETRON PF 4 MG/2 ML VIAL. IVP ONE (12:30)
[2020-07-30 13:20] LABS: BASO % 1 % (0-3); EOS # 0.1 x10^3/uL (0.0-0.7); EOS % 1 % (0-3); HEMATOCRIT 38.4 % (36.0-47.0); HEMOGLOBIN 12.5 g/dL (12.0-15.5); LYMPH # 2.1 x10^3/uL (1.0-4.8); LYMPH % 24 % (24-48); MEAN CORPUSCULAR HEMOGLOBIN 28 pg (25-35); MEAN CORPUSCULAR HGB CONC 33 g/dL (31-37); MEAN CORPUSCULAR VOLUME 85 fL (79-100); MONO # 0.6 x10^3/uL (0.0-1.1); MONO % 7 % (0-9); NEUT # 5.8 x10^3/uL (1.8-7.7); NEUT % 67 % (31-73); PLATELET COUNT 286 x10^3/uL (140-400); RED BLOOD COUNT 4.52 x10^6/uL (3.50-5.40); WHITE BLOOD COUNT 8.7 x10^3/uL (4.0-11.0)
--- NOTE | 2020-07-30 13:24 | HP ---
ADMIT DATE: 07/30/2020 CHIEF COMPLAINT: Fall with bilateral foot and ankle pain. HISTORY OF PRESENT ILLNESS: The patient is a pleasant 50-year-old female who underwent gastric bypass within the past few months. She has been having some complications from that with loose stool. She has been quite weak. She fell a week ago, trying to get to the bathroom. She hyperflexed both ankles. She was going to go to the ER, but was concerned about bothering anybody. Also, it was the holidays. Also, she was worried about catching COVID-19. Now, she has finally showed up in the ER. We have done some imaging and indeed she does have an ankle fracture on the right and the left foot has acute left fifth metatarsal fracture. I discussed the case with ER physician. We are going to admit the patient and consult Orthopedics. PAST MEDICAL HISTORY: Recent gastric bypass surgery, asthma, CHF, COPD, depression, GERD, hyperlipidemia, hypertension, migraines, RLS, obstructive sleep apnea, cholecystectomy, back surgery. ALLERGIES: NSAIDS, PENICILLINS LEVAQUIN. FAMILY HISTORY: Diabetes. SOCIAL HISTORY: She does not drink, smoke or take drugs. She lives alone. MEDICATIONS: Reviewed, please refer to the [facility]. REVIEW OF SYSTEMS: GENERAL: No history of weight change, weakness or fevers. SKIN: No bruising, hair changes or rashes. EYES: No blurred, double or loss of vision. NOSE AND THROAT: No history of nosebleeds, hoarseness or sore throat. HEART: No history of palpitations, chest pain or shortness of breath on exertion. LUNGS: Denies cough, hemoptysis, wheezing or shortness of breath. GASTROINTESTINAL: She complains of loose stools. GENITOURINARY: No history of frequency, urgency, hesitancy or nocturia. NEUROLOGIC: Denies history of numbness, tingling, tremor or weakness. PSYCHIATRIC: No history of panic, anxiety or depression. ENDOCRINE: No history of heat or cold intolerance, polyuria or polydipsia. EXTREMITIES: She complains of bilateral foot and ankle pain. PHYSICAL EXAMINATION: VITALS: Within normal limits and are stable. GENERAL: No apparent distress. Alert and oriented. HEENT: Normal cephalic atraumatic, external auditory canals are patent. EYES: Extraocular muscles are intact, pupils are equally round and reactive to light and accommodation. MUSCULOSKELETAL: Well developed, well nourished, good range of motion. ENDOCRINE: No thyromegaly was palpated. LYMPHATICS: No cervical chain or axillary nodes were noted. HEMATOPOIETIC: No bruising. NECK: Supple, no JVD, no thyromegaly was noted. LUNGS: Clear to auscultation in all lung leigh without rhonchi or wheezing. HEART: RRR, S1, S2 present. Peripheral pulses intact, no obvious murmurs were noted. ABDOMEN: Soft, nontender. Positive bowel sounds no organomegaly, normal bowel sounds. EXTREMITIES: The right ankle has bruising and the left toes have some bruising. NEUROLOGIC: Normal speech, normal tone. A & O x 3, moves all extremities, no obvious focal deficits. PSYCHIATRIC: Normal affect, normal mood. Stable. SKIN: No ulcerations or rashes, good skin turgor, no jaundice. VASCULAR: Good capillary refill, neurovascular bundle appears to be intact. LABORATORY DATA: Pending. ASSESSMENT AND PLAN: Fall with right ankle fracture and left fifth metatarsal fracture. The patient is being admitted. We will consult Orthopedics, p.r.n. pain medications, home medications, DVT prophylaxis. Full code. ARIADNA RESENDIZ DO DR: HARDEEP/mac JOB#: [id number] / [id number]
[2020-07-30 13:32] LABS: CALCIUM 9.5 mg/dL (8.5-10.1); CREATININE 0.7 mg/dL (0.6-1.0); GFR 88.2; POTASSIUM 3.9 mmol/L (3.5-5.1)
[2020-07-30] MEDS ORDERED: SPIR25TA5 PO (14:56)
[2020-07-30] MEDS ORDERED: ESCITALOPRAM OX20 MG PO (14:56)
[2020-07-30] MEDS ORDERED: BUPR150T8 PO (14:56)
[2020-07-30 15:00] VITALS: BP 174/77
[2020-07-30 15:30] VITALS: BP 166/79
[2020-07-30 16:00] VITALS: BP 151/73
[2020-07-30 16:15] VITALS: BP 147/72
[2020-07-30 19:19] VITALS: BP 150/78
[2020-07-30] MEDS ORDERED: TRAZ-123 PO (19:44)
[2020-07-30] MEDS: traZODone 100 MG TABLET. PO SCH (19:59)
[2020-07-30] MEDS: buPROPion 75 MG TABLET. PO SCH (20:00)
[2020-07-30] MEDS: LORazepam 0.5 MG TABLET PO PRN (22:05)
[2020-07-30] MEDS: HYDROcodone/APAP 5/325MG 1 TAB TABLET PO PRN (22:06)
[2020-07-30 22:47] VITALS: BP 145/75
[2020-07-31] VITALS (12 sets, daily range): BP systolic 130–158; BP diastolic 58–85
[2020-07-31] MEDS ORDERED: IV RINGERS,LACTATED 1000ML 1,000 ML IV SCH (03:15)
[2020-07-31] MEDS ORDERED: fentaNYL PF VIAL 100 MCG/2 ML VIAL IV PRN (03:15)
[2020-07-31] MEDS ORDERED: PROPOFOL 10 MG/ML (20ML) VIAL. IV ONE ×2 (06:30→08:12)
[2020-07-31] MEDS ORDERED: ONDANSETRON PF 4 MG/2 ML VIAL. ONE (06:30)
[2020-07-31] MEDS ORDERED: LIDOCAINE 2% PF 5 ML VIAL. ONE (06:30)
[2020-07-31] MEDS ORDERED: DEXAMETHASONE SOD PHOS 4 MG/ML VIAL ONE (06:30)
[2020-07-31] MEDS ORDERED: ROCURONIUM 50 MG/5 ML VIAL. ONE (06:31)
[2020-07-31] MEDS ORDERED: fentaNYL PF VIAL 250 MCG/5 ML VIAL ONE (06:55)
[2020-07-31] MEDS: SPIRONOLACTONE 25 MG TABLET PO SCH (06:59)
[2020-07-31] MEDS: PANTOPRAZOLE 40 MG TABLET.DR. PO SCH (06:59)
[2020-07-31] MEDS: CITALOPRAM 20 MG TABLET. PO SCH (06:59)
[2020-07-31] MEDS: buPROPion 75 MG TABLET. PO SCH ×2 (07:00→21:33)
[2020-07-31] MEDS: METOPROLOL SUCC 24HR ER 25 MG TAB.ER.24H. PO SCH (07:00)
[2020-07-31] MEDS ORDERED: MIDAZOLAM HCL/PF 2 MG/2 ML VIAL. ONE (07:02)
[2020-07-31] MEDS ORDERED: ceFAZolin SODIUM IV Push 1 GM VIAL. IVP ONE ×2 (07:27→07:42)
[2020-07-31] MEDS ORDERED: SEVOFLURANE > 120 MINUTES. IH ONE (07:47)
[2020-07-31] MEDS ORDERED: METOPROLOL IV PUSH 5 MG/5 ML VIAL. IVP ONE (07:49)
[2020-07-31] MEDS ORDERED: GLYCOPYRROLATE 1 MG/5 ML VIAL. ONE (08:15)
[2020-07-31] MEDS ORDERED: NEOSTIGMINE METHYLSULFATE 5 MG/5 ML SYRINGE. ONE (08:15)
[2020-07-31] MEDS ORDERED: fentaNYL PF VIAL 100 MCG/2 ML VIAL ONE ×2 (08:26→09:20)
[2020-07-31] MEDS ORDERED: MORPHINE SULFATE 2 MG/ML VIAL. ONE (08:47)
[2020-07-31] MEDS: MORPHINE SULFATE 2 MG/ML VIAL. IV PRN ×8 (08:48→23:48)
--- NOTE | 2020-07-31 08:53 | PDOC4 ---
Operative Note Operative Note Date of surgery: 07/31/2020 Preoperative diagnosis: Left distal fibula fracture with talar shift and syndesmotic injury Postoperative diagnosis: Same Operative procedure: ORIF left distal fibula fracture with syndesmotic fixation Surgeon: Pau Anesthesia: General Estimated blood loss: 45 cc Complications: None Operative indications: Please see my dictated orthopedic consultation for detailed operative indications and note that patient has distal fibula fracture with a syndesmotic injury and lateral talar shift. I had described to her the x-ray findings both demonstrating with her foot and graphically on her drawing and with x-rays and described the rationale for operative treatment and the expected removal of the syndesmotic screw perhaps 3 months later depending on healing and the risks of potential infection nonhealing nerve or blood vessel damage medical or other anesthetic complications among others she agrees to proceed with surgical evaluation and treatment. Operative text: Patient was identified procedure verified patient placed in the supine position on the operating table. After adequate amounts of general anesthesia were administered the right lower extremity was prepped and draped in standard sterile fashion with a thigh tourniquet. After timeout was performed patient procedure identified and verified the right lower extremity was exsanguinated by Esmarch bandage tourniquet inflated to 350 mmHg an incision was made over the distal fibula subperiosteal dissection was carried out distal fibula fracture was reduced anatomically and fixated with a 4 hole Latoya distal fibular locking plate stainless steel with a proximal nonlocking screw. Distal locking screws were placed under fluoroscopic guidance and a syndesmotic screw was placed and tightened with the ankle in full dorsiflexion to restore the syndesmosis stability and the ankle joint mortise was noted to be symmetric on fluoroscopic guidance. Remainder of proximal nonlocking screws were placed and hardware placement was all checked under multiple fluoroscopic views. The irrigation carried out normal saline solution subcutaneous closure with buried Vicryl suture skin closure with alternating mattress and simple nylon suture well-padded posterior splint was placed over sterile dressings and toes were noted to be warm pink on deflation of the tourniquet patient was returned to recovery room stable condition having tolerated procedure well BOUCHRA RICHARDS MD Jul 31, 2020 08:53
[2020-07-31] MEDS ORDERED: HYDROmorphone 2 MG/ML VIAL ONE ×2 (08:54→09:43)
[2020-07-31] MEDS: HYDROmorphone 2 MG/ML VIAL IV PRN ×6 (08:55→09:56)
[2020-07-31] MEDS ORDERED: PROCHLORPERAZINE 10 MG/2 ML VIAL. ONE (09:10)
[2020-07-31] MEDS: PROCHLORPERAZINE 10 MG/2 ML VIAL. IV PRN ×2 (09:12→09:23)
[2020-07-31] MEDS: fentaNYL PF VIAL 100 MCG/2 ML VIAL IV PRN ×2 (09:22→09:31)
[2020-07-31] MEDS: HYDROcodone/APAP 5/325MG 1 TAB TABLET PO PRN ×3 (09:45→19:23)
--- NOTE | 2020-07-31 10:05 | NUR ---
SW following. Discussed with RN, pt from home alone, 2L at night, cardiac diet, rapid COVID-19 negative. Pt having surgery today. Likely will have PT/OT after surgery. SW will continue to follow.
--- NOTE | 2020-07-31 10:57 | PDOC ---
[facility] PROGRESS NOTE Date of Service DOS: DATE: 07/31/20 TIME: 10:56 Chief Complaint Chief Complaint Left distal fibula fracture with talar shift and syndesmotic injury Recent gastric bypass surgery Asthma CHF COPD Depression GERD Hyperlipidemia Hypertension Migraines RLS Obstructive Sleep apnea Cholecystectomy Back surgery History of Present Illness History of Present Illness The patient is a pleasant 50-year-old female who underwent gastric bypass within the past few months. She has been having some complications from that with loose stool. She has been quite weak. She fell a week ago, trying to get to the bathroom. She hyperflexed both ankles. She was going to go to the ER, but was concerned about bothering anybody. Also, it was the holidays. Also, she was worried about catching COVID-19. Now, she has finally showed up in the ER. We have done some imaging and indeed she does have an ankle fracture on the right and the left foot has acute left fifth metatarsal fracture. I discussed the case with ER physician. We are going to admit the patient and consult Orthopedics. 07/31 Patient seen and examined Chart reviewed Discussed with RN Discussed with case management Patient is comfortable Vitals/I&O Vitals/I&O: Vital Signs Date Time Temp Pulse Resp B/P (MAP) Pulse Ox O2 Delivery O2 Flow Rate FiO2 07/31/20 10:00 23 07/31/20 09:55 70 147/69 91 Room Air 07/31/20 08:55 3 07/31/20 08:40 98.5 98.5 I & O 07/30/20 07/30/20 07/31/20 15:00 23:00 07:00 Intake Total 500 ml Output Total 1800 ml Balance 500 ml -1800 ml Physical Exam General: Alert, No acute distress Heart: Regular rate, No murmurs Lungs: Clear Abdomen: Normal bowel sounds, No tenderness Extremities: No clubbing, Normal pulses Skin: No rashes, Other (no itching) Labs Labs: Laboratory Tests Test 07/30/20 13:10 07/30/20 13:30 White Blood Count 8.7 x10^3/uL (4.0-11.0) Red Blood Count 4.52 x10^6/uL (3.50-5.40) Hemoglobin 12.5 g/dL (12.0-15.5) Hematocrit 38.4 % (36.0-47.0) Mean Corpuscular Volume 85 fL (79-100) Mean Corpuscular Hemoglobin 28 pg (25-35) Mean Corpuscular Hemoglobin Concent 33 g/dL (31-37) Red Cell Distribution Width 19.0 % (11.5-14.5) Platelet Count 286 x10^3/uL (140-400) Neutrophils (%) (Auto) 67 % (31-73) Lymphocytes (%) (Auto) 24 % (24-48) Monocytes (%) (Auto) 7 % (0-9) Eosinophils (%) (Auto) 1 % (0-3) Basophils (%) (Auto) 1 % (0-3) Neutrophils # (Auto) 5.8 x10^3/uL (1.8-7.7) Lymphocytes # (Auto) 2.1 x10^3/uL (1.0-4.8) Monocytes # (Auto) 0.6 x10^3/uL (0.0-1.1) Eosinophils # (Auto) 0.1 x10^3/uL (0.0-0.7) Basophils # (Auto) 0.0 x10^3/uL (0.0-0.2) Sodium Level 137 mmol/L (136-145) Potassium Level 3.9 mmol/L (3.5-5.1) Chloride Level 99 mmol/L (98-107) Carbon Dioxide Level 28 mmol/L (21-32) Anion Gap 10 (6-14) Blood Urea Nitrogen 9 mg/dL (7-20) Creatinine 0.7 mg/dL (0.6-1.0) Estimated GFR (Cockcroft-Gault) 88.2 Glucose Level 99 mg/dL (70-99) Calcium Level 9.5 mg/dL (8.5-10.1) SARS-CoV-2 Antigen (Rapid) Negative (NEGATIVE) Review of Systems Review of Systems: Denies headache, changes in vision, or numbness Denies itching or rashes Assessment and Plan Assessmemt and Plan Problems Medical Problems: (1) Closed right ankle fracture Status: Acute (2) Fall at home Status: Acute (3) Foot fracture, left Status: Acute Assessment: Left distal fibula fracture with talar shift and syndesmotic injury Recent gastric bypass surgery Asthma CHF COPD Depression GERD Hyperlipidemia Hypertension Migraines RLS Obstructive Sleep apnea Cholecystectomy Back surgery Plan: Wound care Pain meds Discharge disposition pending DVT prophylaxis Full code Home meds Comment Review of Relevant I have reviewed the following items violetta (where applicable) has been applied. Medications: Current Medications Medications (Trade) Dose Ordered Sig/Ga Route PRN Reason Start Time Stop Time Status Last Admin Dose Admin Morphine Sulfate (Morphine Sulfate) 4 mg 1X ONCE IV 07/30/20 12:30 07/30/20 12:31 DC 07/30/20 13:20 Ondansetron HCl (Zofran) 4 mg 1X ONCE IVP 07/30/20 12:30 07/30/20 12:31 DC 07/30/20 13:21 Acetaminophen/ Hydrocodone Bitart (Lortab 5/325) 1 tab PRN Q4HRS PRN PO PAIN 07/30/20 15:45 07/31/20 09:45 Bupropion HCl (Wellbutrin) 75 mg BID PO 07/30/20 21:00 07/30/20 20:00 Trazodone HCl (Desyrel) 100 mg QHS PO 07/30/20 21:00 07/30/20 19:59 Lorazepam (Ativan) 0.5 mg PRN Q12HRS PRN PO ANXIETY / AGITATION 07/30/20 20:00 07/30/20 22:05 Fentanyl Citrate (Fentanyl 2ml Vial) 50 mcg PRN Q5MIN PRN IV MODERATE TO SEVERE PAIN 07/31/20 03:15 08/01/20 03:14 07/31/20 09:31 Morphine Sulfate (Morphine Sulfate) 1 mg PRN Q10MIN PRN IV SEVERE PAIN 7-10 07/31/20 03:15 08/01/20 03:14 07/31/20 09:04 Hydromorphone HCl (Dilaudid) 0.5 mg PRN Q10MIN PRN IV SEV PAIN, Second choice 07/31/20 03:15 08/01/20 03:14 07/31/20 09:56 Prochlorperazine Edisylate (Compazine) 5 mg PACU PRN PRN IV NAUSEA, MRX1 07/31/20 03:15 08/01/20 03:14 07/31/20 09:23 Cefazolin Sodium/ Dextrose 50 ml @ 100 mls/hr 1X ONCE IV 07/31/20 07:45 07/31/20 08:16 DC 07/31/20 07:42 Justifications for Admission Other Justification ARIADNA RESENDIZ III DO Jul 31, 2020 10:57
[2020-07-31] MEDS: LORazepam 0.5 MG TABLET PO PRN (19:21)
[2020-07-31] MEDS: HYDROcodone/APAP 10/325 1 TAB TABLET PO PRN (21:33)
[2020-07-31] MEDS: GABAPENTIN 300 MG CAPSULE. PO SCH (21:33)
[2020-07-31] MEDS: traZODone 100 MG TABLET. PO SCH (21:33)
--- NOTE | 2020-07-31 23:23 | CONS ---
DATE OF CONSULTATION: 07/30/2020 REQUESTING PHYSICIAN: Dr. Salgado. REASON FOR CONSULTATION: Right ankle and left foot fractures. HISTORY OF PRESENT ILLNESS: The patient is a 50-year-old female who indicates that she fell about a week ago when she was in her bathroom, slipped and landed awkwardly and has difficulty bearing weight due to mainly bilateral ankle pain. She said her knees hurt a little bit due to landing on them. Occasional sharp pain in the right knee, much more mild than the left knee. She really stayed in at her home due to bad weather, but then presented to the Emergency Department on 07/30/2020 as she was having difficulty getting up and around. PAST MEDICAL HISTORY: Significant for congestive heart failure, COPD, reflux disease, depression, hypertension, hypercholesterolemia, asthma, migraines, sleep apnea and low back pain. PAST SURGICAL HISTORY: Back surgery, cholecystectomy, and gastric bypass surgery. ALLERGIES: SHE HAS AN ALLERGY TO PENICILLIN, WHICH GIVES HER HIVES. SOME INTERNAL BLEEDING WITH NONSTEROIDALS AND JOINT PAIN WITH LEVOFLOXACIN. MEDICATIONS: List is reviewed. FAMILY HISTORY: She denies any significant family history. SOCIAL HISTORY: Denies smoking cigarettes. She has used marijuana in the past and is a heavy drinker of alcohol often and uses daily. REVIEW OF SYSTEMS: Significant for the lower extremity pain, worse than the ankles, but more mild in the knees, right worse than left. Denies any head injury, loss of consciousness, recent febrile illness, chest pain, shortness of breath, focal weakness, numbness, tingling. PHYSICAL EXAMINATION: GENERAL: Pleasant, cooperative 50-year-old female. HEENT: Atraumatic, normocephalic. MUSCULOSKELETAL: She has normal shoulder, elbow and wrist motion bilaterally. EXTREMITIES: Examination of lower extremities reveals significant tenderness over the lateral more so than medial aspect of the right ankle. She has pain with drawer testing and over the deltoid ligament medially. No pain over the bony prominences of the left ankle and really only diffuse tenderness over the left foot more so than the right, but normal midfoot, hindfoot, forefoot motion bilaterally and does have some bruising corresponding to the tender areas. She has some moderate patellofemoral crepitus without tilt or instability. Ligaments are stable in bilateral knees. She has no joint line tenderness. Negative Noemy's. Normal alignment and stability of bilateral hips. IMAGING: X-rays show a right distal fibula fracture with widening of the medial joint mortise on the right ankle and widening at the syndesmosis of the distal tibia and fibula, although x-rays show some abnormality of the left fifth metatarsal head and neck area. She is really not directly tender over this area and I do not see evidence of a displaced fracture and I particularly do not think it is present because she is able to put significant weight on the metatarsal heads and has really no tenderness pushing off with the toes in extension. IMPRESSION: 1. Right ankle fracture with lateral tibial translation and syndesmotic injury. 2. Left foot and bilateral knee contusions. TREATMENT PLAN: I went over with her the recommendation for operative treatment of the right ankle with fixation of her distal fibula fracture and a syndesmotic screw that brings the two bones together so the ligaments can heal better. I also went over with her that while she can bear weight with that as healing progresses probably about 3 months postoperative, I would generally recommend removal of the syndesmotic screw to allow the usual motion between the two bones in the ankle and went over with her that the screw can break, but generally we prefer removing it when the healing of the ligament is expected to have occurred. I also covered with her risks, benefits, postoperative course of the surgery including the possibility of infection, nonhealing, nerve or blood vessel damage, medical or other anesthetic complications and the consequences of nonoperative management with malalignment of the ankle. She wishes to proceed with surgical evaluation and treatment, which will occur and is scheduled for tomorrow morning. BOUCHRA RICHARDS MD DR: GANESH/mac JOB#: [id number] / [id number]
[2020-08-01] MEDS: HYDROcodone/APAP 10/325 1 TAB TABLET PO PRN ×2 (01:52→08:50)
[2020-08-01] MEDS: MORPHINE SULFATE 2 MG/ML VIAL. IV PRN ×6 (01:52→22:08)
[2020-08-01 03:26] VITALS: BP 128/64
[2020-08-01 07:00] VITALS: BP 166/73
[2020-08-01 08:18] LABS: BASO # 0.1 x10^3/uL (0.0-0.2); BASO % 1 % (0-3); EOS # 0.1 x10^3/uL (0.0-0.7); EOS % 1 % (0-3); HEMATOCRIT 35.9 % (36.0-47.0); HEMOGLOBIN 11.7 g/dL (12.0-15.5); LYMPH # 3.2 x10^3/uL (1.0-4.8); LYMPH % 39 % (24-48); MEAN CORPUSCULAR HEMOGLOBIN 28 pg (25-35); MEAN CORPUSCULAR HGB CONC 32 g/dL (31-37); MEAN CORPUSCULAR VOLUME 86 fL (79-100); MONO # 0.8 x10^3/uL (0.0-1.1); MONO % 10 % (0-9); NEUT % 49 % (31-73); PLATELET COUNT 282 x10^3/uL (140-400); RED BLOOD COUNT 4.18 x10^6/uL (3.50-5.40); RED CELL DISTRIBUTION WIDTH 19.2 % (11.5-14.5); WHITE BLOOD COUNT 8.2 x10^3/uL (4.0-11.0)
[2020-08-01 08:48] LABS: CALCIUM 8.9 mg/dL (8.5-10.1); CREATININE 0.6 mg/dL (0.6-1.0); GFR 105.4; POTASSIUM 3.6 mmol/L (3.5-5.1)
[2020-08-01] MEDS: METOPROLOL SUCC 24HR ER 25 MG TAB.ER.24H. PO SCH (08:50)
[2020-08-01] MEDS: buPROPion 75 MG TABLET. PO SCH ×2 (08:51→21:56)
[2020-08-01] MEDS: CITALOPRAM 20 MG TABLET. PO SCH (08:51)
[2020-08-01] MEDS: SPIRONOLACTONE 25 MG TABLET PO SCH (08:51)
[2020-08-01] MEDS: PANTOPRAZOLE 40 MG TABLET.DR. PO SCH (08:51)
--- NOTE | 2020-08-01 08:52 | PDOC ---
[facility] PROGRESS NOTE Date of Service DOS: DATE: 08/01/20 TIME: 08:49 Chief Complaint Chief Complaint Left distal fibula fracture with talar shift and syndesmotic injury Recent gastric bypass surgery Asthma CHF COPD Depression GERD Hyperlipidemia Hypertension Migraines RLS Obstructive Sleep apnea Cholecystectomy Back surgery History of Present Illness History of Present Illness The patient is a pleasant 50-year-old female who underwent gastric bypass within the past few months. She has been having some complications from that with loose stool. She has been quite weak. She fell a week ago, trying to get to the bathroom. She hyperflexed both ankles. She was going to go to the ER, but was concerned about bothering anybody. Also, it was the holidays. Also, she was worried about catching COVID-19. Now, she has finally showed up in the ER. We have done some imaging and indeed she does have an ankle fracture on the right and the left foot has acute left fifth metatarsal fracture. I discussed the case with ER physician. We are going to admit the patient and consult Orthopedics. 07/31 Patient seen and examined Chart reviewed Discussed with RN Discussed with case management Patient is comfortable 08/01 Patient seen and examined Chart reviewed Discussed with RN Discussed with case management Patient is comfortable and was resting when we seen her Vitals/I&O Vitals/I&O: Vital Signs Date Time Temp Pulse Resp B/P (MAP) Pulse Ox O2 Delivery O2 Flow Rate FiO2 08/01/20 07:20 Room Air 2.0 08/01/20 07:00 98.0 65 18 166/73 (104) 100 98.0 I & O 07/31/20 07/31/20 08/01/20 15:00 23:00 07:00 Intake Total 650 ml 0 ml 480 ml Output Total 25 ml Balance 625 ml 0 ml 480 ml Physical Exam General: Alert, No acute distress Heart: Regular rate, No murmurs Lungs: Clear Abdomen: Normal bowel sounds, No tenderness Extremities: No clubbing, Normal pulses Skin: No rashes, Other (no itching) Labs Labs: Laboratory Tests Test 08/01/20 06:35 White Blood Count 8.2 x10^3/uL (4.0-11.0) Red Blood Count 4.18 x10^6/uL (3.50-5.40) Hemoglobin 11.7 g/dL (12.0-15.5) Hematocrit 35.9 % (36.0-47.0) Mean Corpuscular Volume 86 fL (79-100) Mean Corpuscular Hemoglobin 28 pg (25-35) Mean Corpuscular Hemoglobin Concent 32 g/dL (31-37) Red Cell Distribution Width 19.2 % (11.5-14.5) Platelet Count 282 x10^3/uL (140-400) Neutrophils (%) (Auto) 49 % (31-73) Lymphocytes (%) (Auto) 39 % (24-48) Monocytes (%) (Auto) 10 % (0-9) Eosinophils (%) (Auto) 1 % (0-3) Basophils (%) (Auto) 1 % (0-3) Neutrophils # (Auto) 4.0 x10^3/uL (1.8-7.7) Lymphocytes # (Auto) 3.2 x10^3/uL (1.0-4.8) Monocytes # (Auto) 0.8 x10^3/uL (0.0-1.1) Eosinophils # (Auto) 0.1 x10^3/uL (0.0-0.7) Basophils # (Auto) 0.1 x10^3/uL (0.0-0.2) Review of Systems Review of Systems: Denies headache, changes in vision, or numbness Denies itching or rashes Assessment and Plan Assessmemt and Plan Problems Medical Problems: (1) Closed right ankle fracture Status: Acute (2) Fall at home Status: Acute (3) Foot fracture, left Status: Acute Assessment: Left distal fibula fracture with talar shift and syndesmotic injury Recent gastric bypass surgery Asthma CHF COPD Depression GERD Hyperlipidemia Hypertension Migraines RLS Obstructive Sleep apnea Cholecystectomy Back surgery Plan: Discharge disposition pending Wound care Pain meds Full code DVT prophylaxis Home meds Comment Review of Relevant I have reviewed the following items violetta (where applicable) has been applied. Medications: Current Medications Medications (Trade) Dose Ordered Sig/Ga Route PRN Reason Start Time Stop Time Status Last Admin Dose Admin Morphine Sulfate (Morphine Sulfate) 2 mg PRN Q2HR PRN IV PAIN 07/31/20 12:45 08/01/20 07:20 Gabapentin (Neurontin) 300 mg TID PO 07/31/20 22:00 07/31/20 21:33 Acetaminophen/ Hydrocodone Bitart (Lortab ) 1 tab PRN Q4HRS PRN PO SEVERE PAIN 7-10 07/31/20 21:30 08/01/20 01:52 Justifications for Admission Other Justification ARIADNA RESENDIZ III DO Aug 01, 2020 08:52
[2020-08-01] MEDS: GABAPENTIN 300 MG CAPSULE. PO SCH ×3 (08:55→21:56)
[2020-08-01] MEDS ORDERED: ALBUTEROL SULFATE 2.5 MG/3 ML NEBU. NEB PRN (09:45)
[2020-08-01 11:00] VITALS: BP 150/85
--- NOTE | 2020-08-01 11:46 | PDOC ---
PROGRESS NOTES Date of Service DATE: 08/01/20 TIME: 11:43 Subjective Subjective Problems overnight: Complains of severe pain. She notes that she was on Percocet prior to her ankle injury and surgery by Dr. Jose who is treating her for bilateral knee pain and she is not getting good pain relief from the current hydrocodone regimen even with gabapentin added last evening Objective Vital Signs Vital Signs Date Time Temp Pulse Resp B/P (MAP) Pulse Ox O2 Delivery O2 Flow Rate FiO2 08/01/20 11:38 Room Air 08/01/20 08:50 2.0 08/01/20 08:50 65 166/73 08/01/20 07:00 98.0 18 100 98.0 Physical Exam Splint is clean dry intact she can wiggle her toes sensation is intact as is capillary refill distally Labs Laboratory Tests Test 07/30/20 13:10 07/30/20 13:30 08/01/20 06:35 White Blood Count 8.7 x10^3/uL (4.0-11.0) 8.2 x10^3/uL (4.0-11.0) Red Blood Count 4.52 x10^6/uL (3.50-5.40) 4.18 x10^6/uL (3.50-5.40) Hemoglobin 12.5 g/dL (12.0-15.5) 11.7 g/dL (12.0-15.5) Hematocrit 38.4 % (36.0-47.0) 35.9 % (36.0-47.0) Mean Corpuscular Volume 85 fL (79-100) 86 fL (79-100) Mean Corpuscular Hemoglobin 28 pg (25-35) 28 pg (25-35) Mean Corpuscular Hemoglobin Concent 33 g/dL (31-37) 32 g/dL (31-37) Red Cell Distribution Width 19.0 % (11.5-14.5) 19.2 % (11.5-14.5) Platelet Count 286 x10^3/uL (140-400) 282 x10^3/uL (140-400) Neutrophils (%) (Auto) 67 % (31-73) 49 % (31-73) Lymphocytes (%) (Auto) 24 % (24-48) 39 % (24-48) Monocytes (%) (Auto) 7 % (0-9) 10 % (0-9) Eosinophils (%) (Auto) 1 % (0-3) 1 % (0-3) Basophils (%) (Auto) 1 % (0-3) 1 % (0-3) Neutrophils # (Auto) 5.8 x10^3/uL (1.8-7.7) 4.0 x10^3/uL (1.8-7.7) Lymphocytes # (Auto) 2.1 x10^3/uL (1.0-4.8) 3.2 x10^3/uL (1.0-4.8) Monocytes # (Auto) 0.6 x10^3/uL (0.0-1.1) 0.8 x10^3/uL (0.0-1.1) Eosinophils # (Auto) 0.1 x10^3/uL (0.0-0.7) 0.1 x10^3/uL (0.0-0.7) Basophils # (Auto) 0.0 x10^3/uL (0.0-0.2) 0.1 x10^3/uL (0.0-0.2) Sodium Level 137 mmol/L (136-145) 142 mmol/L (136-145) Potassium Level 3.9 mmol/L (3.5-5.1) 3.6 mmol/L (3.5-5.1) Chloride Level 99 mmol/L (98-107) 103 mmol/L (98-107) Carbon Dioxide Level 28 mmol/L (21-32) 31 mmol/L (21-32) Anion Gap 10 (6-14) 8 (6-14) Blood Urea Nitrogen 9 mg/dL (7-20) 6 mg/dL (7-20) Creatinine 0.7 mg/dL (0.6-1.0) 0.6 mg/dL (0.6-1.0) Estimated GFR (Cockcroft-Gault) 88.2 105.4 Glucose Level 99 mg/dL (70-99) 92 mg/dL (70-99) Calcium Level 9.5 mg/dL (8.5-10.1) 8.9 mg/dL (8.5-10.1) Coronavirus (PCR) Not detected (Not Detected) SARS-CoV-2 Antigen (Rapid) Negative (NEGATIVE) Laboratory Tests Test 08/01/20 06:35 White Blood Count 8.2 x10^3/uL (4.0-11.0) Red Blood Count 4.18 x10^6/uL (3.50-5.40) Hemoglobin 11.7 g/dL (12.0-15.5) Hematocrit 35.9 % (36.0-47.0) Mean Corpuscular Volume 86 fL (79-100) Mean Corpuscular Hemoglobin 28 pg (25-35) Mean Corpuscular Hemoglobin Concent 32 g/dL (31-37) Red Cell Distribution Width 19.2 % (11.5-14.5) Platelet Count 282 x10^3/uL (140-400) Neutrophils (%) (Auto) 49 % (31-73) Lymphocytes (%) (Auto) 39 % (24-48) Monocytes (%) (Auto) 10 % (0-9) Eosinophils (%) (Auto) 1 % (0-3) Basophils (%) (Auto) 1 % (0-3) Neutrophils # (Auto) 4.0 x10^3/uL (1.8-7.7) Lymphocytes # (Auto) 3.2 x10^3/uL (1.0-4.8) Monocytes # (Auto) 0.8 x10^3/uL (0.0-1.1) Eosinophils # (Auto) 0.1 x10^3/uL (0.0-0.7) Basophils # (Auto) 0.1 x10^3/uL (0.0-0.2) Sodium Level 142 mmol/L (136-145) Potassium Level 3.6 mmol/L (3.5-5.1) Chloride Level 103 mmol/L (98-107) Carbon Dioxide Level 31 mmol/L (21-32) Anion Gap 8 (6-14) Blood Urea Nitrogen 6 mg/dL (7-20) Creatinine 0.6 mg/dL (0.6-1.0) Estimated GFR (Cockcroft-Gault) 105.4 Glucose Level 92 mg/dL (70-99) Calcium Level 8.9 mg/dL (8.5-10.1) Imaging Intra-Op fluoroscopic films show excellent reduction of the distal fibula fracture and syndesmosis Assessment Assessment POD#1 ORIF distal fibula fracture and syndesmotic injury right ankle Plan Plan of Care Elevate and ice right ankle, changing current regimen to Percocet 10/325 1 p.o. every 4 hours for severe pain and continue gabapentin 300 mg 3 times daily Nonweightbearing but may mobilize with physical therapy Supportive medical care Justicifation of Admission Dx: Justifications for Admission: Justification of Admission Dx: N/A BOUCHRA RICHARDS MD Aug 01, 2020 11:46
[2020-08-01] MEDS: oxyCODONE/APAP 10/325 1 TAB TABLET PO PRN ×2 (13:03→20:09)
[2020-08-01] MEDS: LORazepam 0.5 MG TABLET PO PRN (13:08)
--- NOTE | 2020-08-01 14:33 | NUR ---
Pt. called [employer], asking for IV Morphine. Pt. educated on Morphine for breakthrough pain and not as a scheduled med. Pt. stated Percocet 10 did not relieve the pain because she takes it daily for her knee pain at home. Pt. also had Ativan at the same time as the Percocet. Pt. stated she does have a high tolerance for meds. Pt. verbalized understanding for Morphine not on schedule and it was discussed methods to relieve her pain. RN offered to call to see if there were other pain meds to try, pt declined a call at this time, stated she would give more time for the meds in her system to work and would be willing to discuss how she is feeling after more time. Pt. stated she will attempt to take a nap at this time.
[2020-08-01 15:00] VITALS: BP 144/68
[2020-08-01 19:29] VITALS: BP 147/66
[2020-08-01] MEDS ORDERED: traZODone 100 MG TABLET. PO SCH (21:00)
[2020-08-01] MEDS: traZODone 100 MG TABLET. PO SCH (21:56)
[2020-08-01 22:51] VITALS: BP 156/78
[2020-08-02] MEDS: LORazepam 0.5 MG TABLET PO PRN ×2 (01:11→21:28)
[2020-08-02 03:00] VITALS: BP 144/77
[2020-08-02 07:00] VITALS: BP 155/69
[2020-08-02] MEDS: oxyCODONE/APAP 10/325 1 TAB TABLET PO PRN ×4 (08:08→22:50)
[2020-08-02] MEDS: buPROPion 75 MG TABLET. PO SCH ×2 (08:08→21:28)
[2020-08-02] MEDS: PANTOPRAZOLE 40 MG TABLET.DR. PO SCH (08:09)
[2020-08-02] MEDS: METOPROLOL SUCC 24HR ER 25 MG TAB.ER.24H. PO SCH (08:09)
[2020-08-02] MEDS: SPIRONOLACTONE 25 MG TABLET PO SCH (08:09)
[2020-08-02] MEDS: GABAPENTIN 300 MG CAPSULE. PO SCH ×4 (08:09→21:28)
[2020-08-02] MEDS: CITALOPRAM 20 MG TABLET. PO SCH (08:09)
[2020-08-02 08:22] LABS: BASO % 1 % (0-3); EOS # 0.3 x10^3/uL (0.0-0.7); EOS % 4 % (0-3); HEMATOCRIT 35.2 % (36.0-47.0); HEMOGLOBIN 11.6 g/dL (12.0-15.5); LYMPH # 2.8 x10^3/uL (1.0-4.8); LYMPH % 40 % (24-48); MEAN CORPUSCULAR HEMOGLOBIN 28 pg (25-35); MEAN CORPUSCULAR HGB CONC 33 g/dL (31-37); MEAN CORPUSCULAR VOLUME 86 fL (79-100); MONO # 0.7 x10^3/uL (0.0-1.1); MONO % 9 % (0-9); NEUT # 3.2 x10^3/uL (1.8-7.7); NEUT % 46 % (31-73); PLATELET COUNT 264 x10^3/uL (140-400); RED CELL DISTRIBUTION WIDTH 19.2 % (11.5-14.5); WHITE BLOOD COUNT 6.9 x10^3/uL (4.0-11.0)
[2020-08-02 08:59] LABS: CALCIUM 9.1 mg/dL (8.5-10.1); CREATININE 0.7 mg/dL (0.6-1.0); GFR 88.2; POTASSIUM 3.9 mmol/L (3.5-5.1)
--- NOTE | 2020-08-02 10:09 | PDOC ---
PROGRESS NOTES Date of Service DATE: 08/02/20 TIME: 10:07 Subjective Subjective Problems overnight: Pain is now better controlled she says gabapentin makes her sleepy though Objective Vital Signs Vital Signs Date Time Temp Pulse Resp B/P (MAP) Pulse Ox O2 Delivery O2 Flow Rate FiO2 08/02/20 09:33 Nasal Cannula 2.0 08/02/20 08:09 60 155/69 08/02/20 07:00 98.0 16 100 98.0 Physical Exam Splint is clean dry intact she can wiggle her toes distal capillary refill is intact Labs Laboratory Tests Test 08/01/20 06:35 08/02/20 06:40 White Blood Count 8.2 x10^3/uL (4.0-11.0) 6.9 x10^3/uL (4.0-11.0) Red Blood Count 4.18 x10^6/uL (3.50-5.40) 4.10 x10^6/uL (3.50-5.40) Hemoglobin 11.7 g/dL (12.0-15.5) 11.6 g/dL (12.0-15.5) Hematocrit 35.9 % (36.0-47.0) 35.2 % (36.0-47.0) Mean Corpuscular Volume 86 fL (79-100) 86 fL (79-100) Mean Corpuscular Hemoglobin 28 pg (25-35) 28 pg (25-35) Mean Corpuscular Hemoglobin Concent 32 g/dL (31-37) 33 g/dL (31-37) Red Cell Distribution Width 19.2 % (11.5-14.5) 19.2 % (11.5-14.5) Platelet Count 282 x10^3/uL (140-400) 264 x10^3/uL (140-400) Neutrophils (%) (Auto) 49 % (31-73) 46 % (31-73) Lymphocytes (%) (Auto) 39 % (24-48) 40 % (24-48) Monocytes (%) (Auto) 10 % (0-9) 9 % (0-9) Eosinophils (%) (Auto) 1 % (0-3) 4 % (0-3) Basophils (%) (Auto) 1 % (0-3) 1 % (0-3) Neutrophils # (Auto) 4.0 x10^3/uL (1.8-7.7) 3.2 x10^3/uL (1.8-7.7) Lymphocytes # (Auto) 3.2 x10^3/uL (1.0-4.8) 2.8 x10^3/uL (1.0-4.8) Monocytes # (Auto) 0.8 x10^3/uL (0.0-1.1) 0.7 x10^3/uL (0.0-1.1) Eosinophils # (Auto) 0.1 x10^3/uL (0.0-0.7) 0.3 x10^3/uL (0.0-0.7) Basophils # (Auto) 0.1 x10^3/uL (0.0-0.2) 0.0 x10^3/uL (0.0-0.2) Sodium Level 142 mmol/L (136-145) 144 mmol/L (136-145) Potassium Level 3.6 mmol/L (3.5-5.1) 3.9 mmol/L (3.5-5.1) Chloride Level 103 mmol/L (98-107) 106 mmol/L (98-107) Carbon Dioxide Level 31 mmol/L (21-32) 32 mmol/L (21-32) Anion Gap 8 (6-14) 6 (6-14) Blood Urea Nitrogen 6 mg/dL (7-20) 7 mg/dL (7-20) Creatinine 0.6 mg/dL (0.6-1.0) 0.7 mg/dL (0.6-1.0) Estimated GFR (Cockcroft-Gault) 105.4 88.2 Glucose Level 92 mg/dL (70-99) 84 mg/dL (70-99) Calcium Level 8.9 mg/dL (8.5-10.1) 9.1 mg/dL (8.5-10.1) Laboratory Tests Test 08/02/20 06:40 White Blood Count 6.9 x10^3/uL (4.0-11.0) Red Blood Count 4.10 x10^6/uL (3.50-5.40) Hemoglobin 11.6 g/dL (12.0-15.5) Hematocrit 35.2 % (36.0-47.0) Mean Corpuscular Volume 86 fL (79-100) Mean Corpuscular Hemoglobin 28 pg (25-35) Mean Corpuscular Hemoglobin Concent 33 g/dL (31-37) Red Cell Distribution Width 19.2 % (11.5-14.5) Platelet Count 264 x10^3/uL (140-400) Neutrophils (%) (Auto) 46 % (31-73) Lymphocytes (%) (Auto) 40 % (24-48) Monocytes (%) (Auto) 9 % (0-9) Eosinophils (%) (Auto) 4 % (0-3) Basophils (%) (Auto) 1 % (0-3) Neutrophils # (Auto) 3.2 x10^3/uL (1.8-7.7) Lymphocytes # (Auto) 2.8 x10^3/uL (1.0-4.8) Monocytes # (Auto) 0.7 x10^3/uL (0.0-1.1) Eosinophils # (Auto) 0.3 x10^3/uL (0.0-0.7) Basophils # (Auto) 0.0 x10^3/uL (0.0-0.2) Sodium Level 144 mmol/L (136-145) Potassium Level 3.9 mmol/L (3.5-5.1) Chloride Level 106 mmol/L (98-107) Carbon Dioxide Level 32 mmol/L (21-32) Anion Gap 6 (6-14) Blood Urea Nitrogen 7 mg/dL (7-20) Creatinine 0.7 mg/dL (0.6-1.0) Estimated GFR (Cockcroft-Gault) 88.2 Glucose Level 84 mg/dL (70-99) Calcium Level 9.1 mg/dL (8.5-10.1) Assessment Assessment POD#ORIF right distal fibula fracture with syndesmotic fixation Plan Plan of Care Mobilize with physical therapy she can weight-bear for transfers in a limited fashion I am okay with discontinuing her gabapentin on discharge Justicifation of Admission Dx: Justifications for Admission: Justification of Admission Dx: N/A BOUCHRA RICHARDS MD Aug 02, 2020 10:09
--- NOTE | 2020-08-02 10:10 | PDOC ---
[facility] PROGRESS NOTE Date of Service DOS: DATE: 08/02/20 TIME: 10:07 Chief Complaint Chief Complaint Left distal fibula fracture with talar shift and syndesmotic injury Recent gastric bypass surgery Asthma CHF COPD Depression GERD Hyperlipidemia Hypertension Migraines RLS Obstructive Sleep apnea Cholecystectomy Back surgery History of Present Illness History of Present Illness The patient is a pleasant 50-year-old female who underwent gastric bypass within the past few months. She has been having some complications from that with loose stool. She has been quite weak. She fell a week ago, trying to get to the bathroom. She hyperflexed both ankles. She was going to go to the ER, but was concerned about bothering anybody. Also, it was the holidays. Also, she was worried about catching COVID-19. Now, she has finally showed up in the ER. We have done some imaging and indeed she does have an ankle fracture on the right and the left foot has acute left fifth metatarsal fracture. I discussed the case with ER physician. We are going to admit the patient and consult Orthopedics. 07/31 Patient seen and examined Chart reviewed Discussed with RN Discussed with case management Patient is comfortable 08/01 Patient seen and examined Chart reviewed Discussed with RN Discussed with case management Patient is comfortable and was resting when we seen her 08/02 Patient seen and examined Chart reviewed Discussed with RN Patient is comfortable and denies pain Vitals/I&O Vitals/I&O: Vital Signs Date Time Temp Pulse Resp B/P (MAP) Pulse Ox O2 Delivery O2 Flow Rate FiO2 08/02/20 09:33 Nasal Cannula 2.0 08/02/20 08:09 60 155/69 08/02/20 07:00 98.0 16 100 98.0 I & O 08/01/20 08/01/20 08/02/20 15:00 23:00 07:00 Intake Total 540 ml 160 ml 640 ml Balance 540 ml 160 ml 640 ml Physical Exam General: Alert, No acute distress Heart: Regular rate, No murmurs Lungs: Clear Abdomen: Normal bowel sounds, No tenderness Extremities: No clubbing, Normal pulses Skin: No rashes, Other (no itching) Labs Labs: Laboratory Tests Test 08/02/20 06:40 White Blood Count 6.9 x10^3/uL (4.0-11.0) Red Blood Count 4.10 x10^6/uL (3.50-5.40) Hemoglobin 11.6 g/dL (12.0-15.5) Hematocrit 35.2 % (36.0-47.0) Mean Corpuscular Volume 86 fL (79-100) Mean Corpuscular Hemoglobin 28 pg (25-35) Mean Corpuscular Hemoglobin Concent 33 g/dL (31-37) Red Cell Distribution Width 19.2 % (11.5-14.5) Platelet Count 264 x10^3/uL (140-400) Neutrophils (%) (Auto) 46 % (31-73) Lymphocytes (%) (Auto) 40 % (24-48) Monocytes (%) (Auto) 9 % (0-9) Eosinophils (%) (Auto) 4 % (0-3) Basophils (%) (Auto) 1 % (0-3) Neutrophils # (Auto) 3.2 x10^3/uL (1.8-7.7) Lymphocytes # (Auto) 2.8 x10^3/uL (1.0-4.8) Monocytes # (Auto) 0.7 x10^3/uL (0.0-1.1) Eosinophils # (Auto) 0.3 x10^3/uL (0.0-0.7) Basophils # (Auto) 0.0 x10^3/uL (0.0-0.2) Sodium Level 144 mmol/L (136-145) Potassium Level 3.9 mmol/L (3.5-5.1) Chloride Level 106 mmol/L (98-107) Carbon Dioxide Level 32 mmol/L (21-32) Anion Gap 6 (6-14) Blood Urea Nitrogen 7 mg/dL (7-20) Creatinine 0.7 mg/dL (0.6-1.0) Estimated GFR (Cockcroft-Gault) 88.2 Glucose Level 84 mg/dL (70-99) Calcium Level 9.1 mg/dL (8.5-10.1) Review of Systems Review of Systems: Denies headache, changes in vision, or numbness Denies itching or rashes Assessment and Plan Assessmemt and Plan Problems Medical Problems: (1) Closed right ankle fracture Status: Acute (2) Fall at home Status: Acute (3) Foot fracture, left Status: Acute Assessment: Left distal fibula fracture with talar shift and syndesmotic injury Recent gastric bypass surgery Asthma CHF COPD Depression GERD Hyperlipidemia Hypertension Migraines RLS Obstructive Sleep apnea Cholecystectomy Back surgery Plan: Ordered albuterol Ordered multivitamin with minerals Discharge disposition pending Wound care Pain meds Full code Home meds Comment Review of Relevant I have reviewed the following items violetta (where applicable) has been applied. Medications: Current Medications Medications (Trade) Dose Ordered Sig/Ga Route PRN Reason Start Time Stop Time Status Last Admin Dose Admin Oxycodone/ Acetaminophen (Percocet 10/325) 1 tab PRN Q4HRS PRN PO SEVERE PAIN 7-10, 2ND CHOICE 08/01/20 11:45 08/02/20 08:08 Justifications for Admission Other Justification ARIADNA RESENDIZ III DO Aug 02, 2020 10:10
[2020-08-02 11:00] VITALS: BP 153/87
[2020-08-02] MEDS: MULTIVITAMIN with MINERAL TABLET. PO SCH (12:09)
[2020-08-02 15:00] VITALS: BP 139/60
[2020-08-02] MEDS: MORPHINE SULFATE 2 MG/ML VIAL. IV PRN (16:13)
[2020-08-02 19:15] VITALS: BP 167/72
[2020-08-02] MEDS: traZODone 100 MG TABLET. PO SCH (21:28)
[2020-08-02 23:04] VITALS: BP 152/61
[2020-08-03] MEDS: oxyCODONE/APAP 10/325 1 TAB TABLET PO PRN ×5 (02:55→21:15)
[2020-08-03 03:04] VITALS: BP 147/74
[2020-08-03 07:00] VITALS: BP 144/94
[2020-08-03 08:31] LABS: BASO % 1 % (0-3); EOS # 0.3 x10^3/uL (0.0-0.7); EOS % 4 % (0-3); HEMATOCRIT 34.9 % (36.0-47.0); HEMOGLOBIN 11.6 g/dL (12.0-15.5); LYMPH # 2.7 x10^3/uL (1.0-4.8); LYMPH % 42 % (24-48); MEAN CORPUSCULAR HEMOGLOBIN 28 pg (25-35); MEAN CORPUSCULAR HGB CONC 33 g/dL (31-37); MEAN CORPUSCULAR VOLUME 86 fL (79-100); MONO # 0.5 x10^3/uL (0.0-1.1); MONO % 8 % (0-9); NEUT % 46 % (31-73); PLATELET COUNT 264 x10^3/uL (140-400); RED BLOOD COUNT 4.08 x10^6/uL (3.50-5.40); RED CELL DISTRIBUTION WIDTH 18.9 % (11.5-14.5); WHITE BLOOD COUNT 6.5 x10^3/uL (4.0-11.0)
[2020-08-03 08:41] LABS: CREATININE 0.6 mg/dL (0.6-1.0); GFR 105.4; POTASSIUM 4.1 mmol/L (3.5-5.1)
[2020-08-03] MEDS: PANTOPRAZOLE 40 MG TABLET.DR. PO SCH (09:08)
[2020-08-03] MEDS: GABAPENTIN 300 MG CAPSULE. PO SCH ×3 (09:08→21:15)
[2020-08-03] MEDS: SPIRONOLACTONE 25 MG TABLET PO SCH (09:09)
[2020-08-03] MEDS: buPROPion 75 MG TABLET. PO SCH ×2 (09:09→21:15)
[2020-08-03] MEDS: MULTIVITAMIN with MINERAL TABLET. PO SCH (09:09)
[2020-08-03] MEDS: METOPROLOL SUCC 24HR ER 25 MG TAB.ER.24H. PO SCH (09:09)
[2020-08-03] MEDS: CITALOPRAM 20 MG TABLET. PO SCH (09:10)
--- NOTE | 2020-08-03 09:54 | PDOC ---
PROGRESS NOTES Date of Service DATE: 08/03/20 TIME: 09:50 Subjective Subjective Problems overnight: Pain overall better controlled but she noted that she gets behind in terms of pain medication and for example is painful now Objective Vital Signs Vital Signs Date Time Temp Pulse Resp B/P (MAP) Pulse Ox O2 Delivery O2 Flow Rate FiO2 08/03/20 09:10 20 98 BiPAP/CPAP 2.0 08/03/20 09:09 74 144/94 08/03/20 07:00 98.1 98.1 Physical Exam Splint and dressing clean dry intact distal neurovascular status intact Labs Laboratory Tests Test 08/02/20 06:40 08/03/20 07:05 White Blood Count 6.9 x10^3/uL (4.0-11.0) 6.5 x10^3/uL (4.0-11.0) Red Blood Count 4.10 x10^6/uL (3.50-5.40) 4.08 x10^6/uL (3.50-5.40) Hemoglobin 11.6 g/dL (12.0-15.5) 11.6 g/dL (12.0-15.5) Hematocrit 35.2 % (36.0-47.0) 34.9 % (36.0-47.0) Mean Corpuscular Volume 86 fL (79-100) 86 fL (79-100) Mean Corpuscular Hemoglobin 28 pg (25-35) 28 pg (25-35) Mean Corpuscular Hemoglobin Concent 33 g/dL (31-37) 33 g/dL (31-37) Red Cell Distribution Width 19.2 % (11.5-14.5) 18.9 % (11.5-14.5) Platelet Count 264 x10^3/uL (140-400) 264 x10^3/uL (140-400) Neutrophils (%) (Auto) 46 % (31-73) 46 % (31-73) Lymphocytes (%) (Auto) 40 % (24-48) 42 % (24-48) Monocytes (%) (Auto) 9 % (0-9) 8 % (0-9) Eosinophils (%) (Auto) 4 % (0-3) 4 % (0-3) Basophils (%) (Auto) 1 % (0-3) 1 % (0-3) Neutrophils # (Auto) 3.2 x10^3/uL (1.8-7.7) 3.0 x10^3/uL (1.8-7.7) Lymphocytes # (Auto) 2.8 x10^3/uL (1.0-4.8) 2.7 x10^3/uL (1.0-4.8) Monocytes # (Auto) 0.7 x10^3/uL (0.0-1.1) 0.5 x10^3/uL (0.0-1.1) Eosinophils # (Auto) 0.3 x10^3/uL (0.0-0.7) 0.3 x10^3/uL (0.0-0.7) Basophils # (Auto) 0.0 x10^3/uL (0.0-0.2) 0.0 x10^3/uL (0.0-0.2) Sodium Level 144 mmol/L (136-145) 143 mmol/L (136-145) Potassium Level 3.9 mmol/L (3.5-5.1) 4.1 mmol/L (3.5-5.1) Chloride Level 106 mmol/L (98-107) 104 mmol/L (98-107) Carbon Dioxide Level 32 mmol/L (21-32) 31 mmol/L (21-32) Anion Gap 6 (6-14) 8 (6-14) Blood Urea Nitrogen 7 mg/dL (7-20) 8 mg/dL (7-20) Creatinine 0.7 mg/dL (0.6-1.0) 0.6 mg/dL (0.6-1.0) Estimated GFR (Cockcroft-Gault) 88.2 105.4 Glucose Level 84 mg/dL (70-99) 89 mg/dL (70-99) Calcium Level 9.1 mg/dL (8.5-10.1) 9.0 mg/dL (8.5-10.1) Laboratory Tests Test 08/03/20 07:05 White Blood Count 6.5 x10^3/uL (4.0-11.0) Red Blood Count 4.08 x10^6/uL (3.50-5.40) Hemoglobin 11.6 g/dL (12.0-15.5) Hematocrit 34.9 % (36.0-47.0) Mean Corpuscular Volume 86 fL (79-100) Mean Corpuscular Hemoglobin 28 pg (25-35) Mean Corpuscular Hemoglobin Concent 33 g/dL (31-37) Red Cell Distribution Width 18.9 % (11.5-14.5) Platelet Count 264 x10^3/uL (140-400) Neutrophils (%) (Auto) 46 % (31-73) Lymphocytes (%) (Auto) 42 % (24-48) Monocytes (%) (Auto) 8 % (0-9) Eosinophils (%) (Auto) 4 % (0-3) Basophils (%) (Auto) 1 % (0-3) Neutrophils # (Auto) 3.0 x10^3/uL (1.8-7.7) Lymphocytes # (Auto) 2.7 x10^3/uL (1.0-4.8) Monocytes # (Auto) 0.5 x10^3/uL (0.0-1.1) Eosinophils # (Auto) 0.3 x10^3/uL (0.0-0.7) Basophils # (Auto) 0.0 x10^3/uL (0.0-0.2) Sodium Level 143 mmol/L (136-145) Potassium Level 4.1 mmol/L (3.5-5.1) Chloride Level 104 mmol/L (98-107) Carbon Dioxide Level 31 mmol/L (21-32) Anion Gap 8 (6-14) Blood Urea Nitrogen 8 mg/dL (7-20) Creatinine 0.6 mg/dL (0.6-1.0) Estimated GFR (Cockcroft-Gault) 105.4 Glucose Level 89 mg/dL (70-99) Calcium Level 9.0 mg/dL (8.5-10.1) Assessment Assessment POD#status post ORIF distal fibula fracture with syndesmotic fixation Plan Plan of Care She suggested that nursing staff wake her up to give her pain medication. I suggested that she instead ask for pain medication right away if it is painful when she wakes up. She seems to think gabapentin is helping significantly but is worried about it making her somewhat sleepy or groggy. We could discontinue it on her discharge from the hospital at her preference. She can weight-bear to transfer in the interim and follow-up with me and about 10 days for wound check staple removal and a cam walker boot planned Justicifation of Admission Dx: Justifications for Admission: Justification of Admission Dx: N/A BOUCHRA RICHARDS MD Aug 03, 2020 09:54
--- NOTE | 2020-08-03 10:38 | PDOC ---
[employer] PROGRESS NOTE Date of Service DOS: DATE: 08/03/20 TIME: 10:35 Chief Complaint Chief Complaint Left distal fibula fracture with talar shift and syndesmotic injury Recent gastric bypass surgery Asthma CHF COPD Depression GERD Hyperlipidemia Hypertension Migraines RLS Obstructive Sleep apnea Cholecystectomy Back surgery History of Present Illness History of Present Illness The patient is a pleasant 50-year-old female who underwent gastric bypass within the past few months. She has been having some complications from that with loose stool. She has been quite weak. She fell a week ago, trying to get to the bathroom. She hyperflexed both ankles. She was going to go to the ER, but was concerned about bothering anybody. Also, it was the holidays. Also, she was worried about catching COVID-19. Now, she has finally showed up in the ER. We have done some imaging and indeed she does have an ankle fracture on the right and the left foot has acute left fifth metatarsal fracture. I discussed the case with ER physician. We are going to admit the patient and consult Orthopedics. 07/31 Patient seen and examined Chart reviewed Discussed with RN Discussed with case management Patient is comfortable 08/01 Patient seen and examined Chart reviewed Discussed with RN Discussed with case management Patient is comfortable and was resting when we seen her 08/02 Patient seen and examined Chart reviewed Discussed with RN Patient is comfortable and denies pain 08/03 Patient seen and examined Chart reviewed Discussed with RN Patient states slight increase in pain, she was resting when we seen her Vitals/I&O Vitals/I&O: Vital Signs Date Time Temp Pulse Resp B/P (MAP) Pulse Ox O2 Delivery O2 Flow Rate FiO2 08/03/20 09:10 20 98 BiPAP/CPAP 2.0 08/03/20 09:09 74 144/94 08/03/20 07:00 98.1 98.1 I & O 08/02/20 08/02/20 08/03/20 15:00 23:00 07:00 Intake Total 180 ml 480 ml Output Total 600 ml 300 ml Balance -420 ml -300 ml 480 ml Physical Exam General: Alert, No acute distress Heart: Regular rate, No murmurs Lungs: Clear Abdomen: Normal bowel sounds, No tenderness Extremities: No clubbing, Normal pulses Skin: No rashes, Other (no itching) Labs Labs: Laboratory Tests Test 08/03/20 07:05 White Blood Count 6.5 x10^3/uL (4.0-11.0) Red Blood Count 4.08 x10^6/uL (3.50-5.40) Hemoglobin 11.6 g/dL (12.0-15.5) Hematocrit 34.9 % (36.0-47.0) Mean Corpuscular Volume 86 fL (79-100) Mean Corpuscular Hemoglobin 28 pg (25-35) Mean Corpuscular Hemoglobin Concent 33 g/dL (31-37) Red Cell Distribution Width 18.9 % (11.5-14.5) Platelet Count 264 x10^3/uL (140-400) Neutrophils (%) (Auto) 46 % (31-73) Lymphocytes (%) (Auto) 42 % (24-48) Monocytes (%) (Auto) 8 % (0-9) Eosinophils (%) (Auto) 4 % (0-3) Basophils (%) (Auto) 1 % (0-3) Neutrophils # (Auto) 3.0 x10^3/uL (1.8-7.7) Lymphocytes # (Auto) 2.7 x10^3/uL (1.0-4.8) Monocytes # (Auto) 0.5 x10^3/uL (0.0-1.1) Eosinophils # (Auto) 0.3 x10^3/uL (0.0-0.7) Basophils # (Auto) 0.0 x10^3/uL (0.0-0.2) Sodium Level 143 mmol/L (136-145) Potassium Level 4.1 mmol/L (3.5-5.1) Chloride Level 104 mmol/L (98-107) Carbon Dioxide Level 31 mmol/L (21-32) Anion Gap 8 (6-14) Blood Urea Nitrogen 8 mg/dL (7-20) Creatinine 0.6 mg/dL (0.6-1.0) Estimated GFR (Cockcroft-Gault) 105.4 Glucose Level 89 mg/dL (70-99) Calcium Level 9.0 mg/dL (8.5-10.1) Review of Systems Review of Systems: Denies headache, changes in vision, or numbness Denies itching or rashes Assessment and Plan Assessmemt and Plan Problems Medical Problems: (1) Closed right ankle fracture Status: Acute (2) Fall at home Status: Acute (3) Foot fracture, left Status: Acute Assessment: Left distal fibula fracture with talar shift and syndesmotic injury Recent gastric bypass surgery Asthma CHF COPD Depression GERD Hyperlipidemia Hypertension Migraines RLS Obstructive Sleep apnea Cholecystectomy Back surgery Plan: Continue albuterol Continue multivitamin with minerals Continue current pain meds Discharge disposition pending Wound care Full code DVT prophylaxis Home meds Comment Review of Relevant I have reviewed the following items violetta (where applicable) has been applied. Medications: Current Medications Medications (Trade) Dose Ordered Sig/Ga Route PRN Reason Start Time Stop Time Status Last Admin Dose Admin Multivitamins (Thera M Plus) 1 tab DAILY PO 08/02/20 12:00 08/03/20 09:09 Justifications for Admission Other Justification ARIADNA RESENDIZ III DO Aug 03, 2020 10:38
[2020-08-03 11:00] VITALS: BP 140/66
[2020-08-03] MEDS: DOCUSATE SODIUM 100 MG CAPSULE. PO SCH ×2 (11:49→21:15)
[2020-08-03 15:00] VITALS: BP 134/80
[2020-08-03 19:20] VITALS: BP 140/81
[2020-08-03] MEDS: traZODone 100 MG TABLET. PO SCH (21:15)
[2020-08-03] MEDS: LORazepam 0.5 MG TABLET PO PRN (21:15)
[2020-08-03 23:23] VITALS: BP 146/84
[2020-08-04] MEDS: oxyCODONE/APAP 10/325 1 TAB TABLET PO PRN ×5 (01:19→19:21)
[2020-08-04 03:22] VITALS: BP 127/54
[2020-08-04] MEDS: PANTOPRAZOLE 40 MG TABLET.DR. PO SCH (06:03)
[2020-08-04 07:00] VITALS: BP 160/77
[2020-08-04 07:56] LABS: BASO % 1 % (0-3); EOS # 0.2 x10^3/uL (0.0-0.7); EOS % 3 % (0-3); HEMATOCRIT 36.4 % (36.0-47.0); HEMOGLOBIN 11.8 g/dL (12.0-15.5); LYMPH # 2.9 x10^3/uL (1.0-4.8); LYMPH % 42 % (24-48); MEAN CORPUSCULAR HEMOGLOBIN 28 pg (25-35); MEAN CORPUSCULAR HGB CONC 32 g/dL (31-37); MEAN CORPUSCULAR VOLUME 86 fL (79-100); MONO # 0.5 x10^3/uL (0.0-1.1); MONO % 7 % (0-9); NEUT # 3.4 x10^3/uL (1.8-7.7); NEUT % 48 % (31-73); PLATELET COUNT 281 x10^3/uL (140-400); RED BLOOD COUNT 4.23 x10^6/uL (3.50-5.40); RED CELL DISTRIBUTION WIDTH 19.3 % (11.5-14.5)
[2020-08-04 08:14] LABS: CALCIUM 9.1 mg/dL (8.5-10.1); CREATININE 0.8 mg/dL (0.6-1.0); GFR 75.6; POTASSIUM 4.1 mmol/L (3.5-5.1)
[2020-08-04] MEDS: buPROPion 75 MG TABLET. PO SCH ×2 (09:28→20:32)
[2020-08-04] MEDS: MULTIVITAMIN with MINERAL TABLET. PO SCH (09:28)
[2020-08-04] MEDS: METOPROLOL SUCC 24HR ER 25 MG TAB.ER.24H. PO SCH (09:28)
[2020-08-04] MEDS: SPIRONOLACTONE 25 MG TABLET PO SCH (09:28)
[2020-08-04] MEDS: DOCUSATE SODIUM 100 MG CAPSULE. PO SCH ×2 (09:28→20:32)
[2020-08-04] MEDS: GABAPENTIN 300 MG CAPSULE. PO SCH ×3 (09:28→20:32)
[2020-08-04] MEDS: CITALOPRAM 20 MG TABLET. PO SCH (09:28)
[2020-08-04 10:25] VITALS: BP 131/68
--- NOTE | 2020-08-04 10:30 | NUR ---
SW following. Discussed with RN, pt from home alone, room air, cardiac diet, COVID-19 negative. RN advised no SW needs and anticipates possible discharge home today. SW will continue to follow.
[2020-08-04 14:35] VITALS: BP 154/83
--- NOTE | 2020-08-04 19:25 | PDOC ---
PROGRESS NOTES Date of Service: DATE: 08/04/20 TIME: 19:23 Chief Complaint Chief Complaint Left distal fibula fracture with talar shift and syndesmotic injury Recent gastric bypass surgery Asthma CHF COPD Depression GERD Hyperlipidemia Hypertension Migraines RLS Obstructive Sleep apnea Cholecystectomy Back surgery plan: We will increase the frequency of her pain meds in the acute setting patient understand that she will go back to her normal regimen after 3 days Hopefully discharge in the a.m. Pain management plan discussed with orthopedic product support consultant History of Present Illness History of Present Illness The patient is a pleasant 50-year-old female who underwent gastric bypass within the past few months. She has been having some complications from that with loose stool. She has been quite weak. She fell a week ago, trying to get to the bathroom. She hyperflexed both ankles. She was going to go to the ER, but was concerned about bothering anybody. Also, it was the holidays. Also, she was worried about catching COVID-19. Now, she has finally showed up in the ER. We have done some imaging and indeed she does have an ankle fracture on the right and the left foot has acute left fifth metatarsal fracture. I discussed the case with ER physician. We are going to admit the patient and consult Orthopedics. 07/31 Patient seen and examined Chart reviewed Discussed with RN Discussed with case management Patient is comfortable 08/01 Patient seen and examined Chart reviewed Discussed with RN Discussed with case management Patient is comfortable and was resting when we seen her 08/02 Patient seen and examined Chart reviewed Discussed with RN Patient is comfortable and denies pain 08/03 Patient seen and examined Chart reviewed Discussed with RN Patient states slight increase in pain, she was resting when we seen her 08/04 No acute events reported overnight, case discussed with nursing staff patient in no acute distress no complaints during my visit Vitals Vitals Vital Signs Date Time Temp Pulse Resp B/P (MAP) Pulse Ox O2 Delivery O2 Flow Rate FiO2 08/04/20 19:21 Room Air 08/04/20 14:35 97.9 59 18 154/83 (106) 97 2.0 97.9 Physical Exam General: Alert, No acute distress Heart: Regular rate, No murmurs Lungs: Clear Abdomen: Normal bowel sounds, No tenderness Extremities: No clubbing, Normal pulses Skin: No rashes, Other (no itching) Labs LABS Laboratory Tests Test 08/04/20 07:00 White Blood Count 7.0 x10^3/uL (4.0-11.0) Red Blood Count 4.23 x10^6/uL (3.50-5.40) Hemoglobin 11.8 g/dL (12.0-15.5) Hematocrit 36.4 % (36.0-47.0) Mean Corpuscular Volume 86 fL (79-100) Mean Corpuscular Hemoglobin 28 pg (25-35) Mean Corpuscular Hemoglobin Concent 32 g/dL (31-37) Red Cell Distribution Width 19.3 % (11.5-14.5) Platelet Count 281 x10^3/uL (140-400) Neutrophils (%) (Auto) 48 % (31-73) Lymphocytes (%) (Auto) 42 % (24-48) Monocytes (%) (Auto) 7 % (0-9) Eosinophils (%) (Auto) 3 % (0-3) Basophils (%) (Auto) 1 % (0-3) Neutrophils # (Auto) 3.4 x10^3/uL (1.8-7.7) Lymphocytes # (Auto) 2.9 x10^3/uL (1.0-4.8) Monocytes # (Auto) 0.5 x10^3/uL (0.0-1.1) Eosinophils # (Auto) 0.2 x10^3/uL (0.0-0.7) Basophils # (Auto) 0.0 x10^3/uL (0.0-0.2) Sodium Level 141 mmol/L (136-145) Potassium Level 4.1 mmol/L (3.5-5.1) Chloride Level 103 mmol/L (98-107) Carbon Dioxide Level 30 mmol/L (21-32) Anion Gap 8 (6-14) Blood Urea Nitrogen 10 mg/dL (7-20) Creatinine 0.8 mg/dL (0.6-1.0) Estimated GFR (Cockcroft-Gault) 75.6 Glucose Level 91 mg/dL (70-99) Calcium Level 9.1 mg/dL (8.5-10.1) Review of Systems Review of Systems Review of systems pertinent as per HPI otherwise 14 point review of system is negative Assessment and Plan Assessmemt and Plan Problems Medical Problems: (1) Closed right ankle fracture Status: Acute (2) Fall at home Status: Acute (3) Foot fracture, left Status: Acute Comment Review of Relevant I have reviewed the following items violetta (where applicable) has been applied. Labs Laboratory Tests Test 08/03/20 07:05 08/04/20 07:00 White Blood Count 6.5 x10^3/uL (4.0-11.0) 7.0 x10^3/uL (4.0-11.0) Red Blood Count 4.08 x10^6/uL (3.50-5.40) 4.23 x10^6/uL (3.50-5.40) Hemoglobin 11.6 g/dL (12.0-15.5) 11.8 g/dL (12.0-15.5) Hematocrit 34.9 % (36.0-47.0) 36.4 % (36.0-47.0) Mean Corpuscular Volume 86 fL (79-100) 86 fL (79-100) Mean Corpuscular Hemoglobin 28 pg (25-35) 28 pg (25-35) Mean Corpuscular Hemoglobin Concent 33 g/dL (31-37) 32 g/dL (31-37) Red Cell Distribution Width 18.9 % (11.5-14.5) 19.3 % (11.5-14.5) Platelet Count 264 x10^3/uL (140-400) 281 x10^3/uL (140-400) Neutrophils (%) (Auto) 46 % (31-73) 48 % (31-73) Lymphocytes (%) (Auto) 42 % (24-48) 42 % (24-48) Monocytes (%) (Auto) 8 % (0-9) 7 % (0-9) Eosinophils (%) (Auto) 4 % (0-3) 3 % (0-3) Basophils (%) (Auto) 1 % (0-3) 1 % (0-3) Neutrophils # (Auto) 3.0 x10^3/uL (1.8-7.7) 3.4 x10^3/uL (1.8-7.7) Lymphocytes # (Auto) 2.7 x10^3/uL (1.0-4.8) 2.9 x10^3/uL (1.0-4.8) Monocytes # (Auto) 0.5 x10^3/uL (0.0-1.1) 0.5 x10^3/uL (0.0-1.1) Eosinophils # (Auto) 0.3 x10^3/uL (0.0-0.7) 0.2 x10^3/uL (0.0-0.7) Basophils # (Auto) 0.0 x10^3/uL (0.0-0.2) 0.0 x10^3/uL (0.0-0.2) Sodium Level 143 mmol/L (136-145) 141 mmol/L (136-145) Potassium Level 4.1 mmol/L (3.5-5.1) 4.1 mmol/L (3.5-5.1) Chloride Level 104 mmol/L (98-107) 103 mmol/L (98-107) Carbon Dioxide Level 31 mmol/L (21-32) 30 mmol/L (21-32) Anion Gap 8 (6-14) 8 (6-14) Blood Urea Nitrogen 8 mg/dL (7-20) 10 mg/dL (7-20) Creatinine 0.6 mg/dL (0.6-1.0) 0.8 mg/dL (0.6-1.0) Estimated GFR (Cockcroft-Gault) 105.4 75.6 Glucose Level 89 mg/dL (70-99) 91 mg/dL (70-99) Calcium Level 9.0 mg/dL (8.5-10.1) 9.1 mg/dL (8.5-10.1) Laboratory Tests Test 08/04/20 07:00 White Blood Count 7.0 x10^3/uL (4.0-11.0) Red Blood Count 4.23 x10^6/uL (3.50-5.40) Hemoglobin 11.8 g/dL (12.0-15.5) Hematocrit 36.4 % (36.0-47.0) Mean Corpuscular Volume 86 fL (79-100) Mean Corpuscular Hemoglobin 28 pg (25-35) Mean Corpuscular Hemoglobin Concent 32 g/dL (31-37) Red Cell Distribution Width 19.3 % (11.5-14.5) Platelet Count 281 x10^3/uL (140-400) Neutrophils (%) (Auto) 48 % (31-73) Lymphocytes (%) (Auto) 42 % (24-48) Monocytes (%) (Auto) 7 % (0-9) Eosinophils (%) (Auto) 3 % (0-3) Basophils (%) (Auto) 1 % (0-3) Neutrophils # (Auto) 3.4 x10^3/uL (1.8-7.7) Lymphocytes # (Auto) 2.9 x10^3/uL (1.0-4.8) Monocytes # (Auto) 0.5 x10^3/uL (0.0-1.1) Eosinophils # (Auto) 0.2 x10^3/uL (0.0-0.7) Basophils # (Auto) 0.0 x10^3/uL (0.0-0.2) Sodium Level 141 mmol/L (136-145) Potassium Level 4.1 mmol/L (3.5-5.1) Chloride Level 103 mmol/L (98-107) Carbon Dioxide Level 30 mmol/L (21-32) Anion Gap 8 (6-14) Blood Urea Nitrogen 10 mg/dL (7-20) Creatinine 0.8 mg/dL (0.6-1.0) Estimated GFR (Cockcroft-Gault) 75.6 Glucose Level 91 mg/dL (70-99) Calcium Level 9.1 mg/dL (8.5-10.1) Medications Current Medications Morphine Sulfate (Morphine Sulfate) 4 mg 1X ONCE IV Last administered on 07/30/20at 13:20; Start 07/30/20 at 12:30; Stop 07/30/20 at 12:31; Status DC Ondansetron HCl (Zofran) 4 mg 1X ONCE IVP Last administered on 07/30/20at 13:21; Start 07/30/20 at 12:30; Stop 07/30/20 at 12:31; Status DC Acetaminophen/ Hydrocodone Bitart (Lortab 5/325) 1 tab PRN Q4HRS PRN PO MODERATE PAIN Last administered on 07/31/20at 19:23; Start 07/30/20 at 15:45 Bupropion HCl (Wellbutrin) 75 mg BID PO Last administered on 1/4/21at 09:28; Start 07/30/20 at 21:00 Metoprolol Succinate (Toprol Xl) 25 mg DAILY PO Last administered on 08/04/20 09:28; Start 07/31/20 at 09:00 Spironolactone (Aldactone) 25 mg DAILY PO Last administered on 08/04/20 09:28; Start 07/31/20 at 09:00 Trazodone HCl (Desyrel) 100 mg QHS PO Last administered on 08/03/20 21:15; Start 07/30/20 at 21:00 Citalopram Hydrobromide (CeleXA) 40 mg DAILY PO Last administered on 08/04/20 09:28; Start 07/31/20 at 09:00 Pantoprazole Sodium (Protonix) 40 mg DAILYAC PO Last administered on 08/04/20 06:03; Start 07/31/20 at 07:30 Lorazepam (Ativan) 0.5 mg PRN Q12HRS PRN PO ANXIETY / AGITATION Last administered on 08/03/20 21:15; Start 07/30/20 at 20:00 Fentanyl Citrate (Fentanyl 2ml Vial) 25 mcg PRN Q5MIN PRN IV MILD PAIN 1-3; Start 07/31/20 at 03:15; Stop 07/31/20 at 16:10; Status DC Fentanyl Citrate (Fentanyl 2ml Vial) 50 mcg PRN Q5MIN PRN IV MODERATE TO SEVERE PAIN Last administered on 07/31/20at 09:31; Start 07/31/20 at 03:15; Stop 07/31/20 at 16:10; Status DC Morphine Sulfate (Morphine Sulfate) 1 mg PRN Q10MIN PRN IV SEVERE PAIN 7-10 Last administered on 07/31/20at 09:04; Start 07/31/20 at 03:15; Stop 07/31/20 at 16:10; Status DC Ringer's Solution 1,000 ml @ 30 mls/hr Q24H IV ; Start 07/31/20 at 03:15; Stop 07/31/20 at 15:14; Status DC Hydromorphone HCl (Dilaudid) 0.5 mg PRN Q10MIN PRN IV SEV PAIN, Second choice Last administered on 07/31/20at 09:56; Start 07/31/20 at 03:15; Stop 07/31/20 at 16:10; Status DC Prochlorperazine Edisylate (Compazine) 5 mg PACU PRN PRN IV NAUSEA, MRX1 Last administered on 07/31/20at 09:23; Start 07/31/20 at 03:15; Stop 07/31/20 at 16:11; Status DC Propofol (Diprivan) 200 mg STK-MED ONCE IV ; Start 07/31/20 at 06:30; Stop 07/31/20 at 06:31; Status DC Lidocaine HCl (Lidocaine Pf 2% Vial) 5 ml STK-MED ONCE .ROUTE ; Start 07/31/20 at 06:30; Stop 07/31/20 at 06:31; Status DC Dexamethasone Sodium Phosphate (Decadron) 4 mg STK-MED ONCE .ROUTE ; Start 07/31/20 at 06:30; Stop 07/31/20 at 06:31; Status DC Ondansetron HCl (Zofran) 4 mg STK-MED ONCE .ROUTE ; Start 07/31/20 at 06:30; Stop 07/31/20 at 06:31; Status DC Rocuronium Clinton (Zemuron) 50 mg STK-MED ONCE .ROUTE ; Start 07/31/20 at 06:31; Stop 07/31/20 at 06:31; Status DC Fentanyl Citrate (Fentanyl 5ml Vial) 250 mcg STK-MED ONCE .ROUTE ; Start 07/31/20 at 06:55; Stop 07/31/20 at 06:55; Status DC Midazolam HCl (Versed) 2 mg STK-MED ONCE .ROUTE ; Start 07/31/20 at 07:02; Stop 07/31/20 at 07:02; Status DC Cefazolin Sodium (Ancef) 1 gm STK-MED ONCE IVP ; Start 07/31/20 at 07:27; Stop 07/31/20 at 07:27; Status DC Cefazolin Sodium/ Dextrose 50 ml @ 100 mls/hr 1X ONCE IV Last administered on 07/31/20at 07:42; Start 07/31/20 at 07:45; Stop 07/31/20 at 08:16; Status DC Cefazolin Sodium (Ancef) 1 gm STK-MED ONCE IVP ; Start 07/31/20 at 07:42; Stop 07/31/20 at 07:43; Status DC Sevoflurane (Ultane) 90 ml STK-MED ONCE IH ; Start 07/31/20 at 07:47; Stop 07/31/20 at 07:47; Status DC Metoprolol Tartrate (Lopressor Vial) 5 mg STK-MED ONCE IVP ; Start 07/31/20 at 07:49; Stop 07/31/20 at 07:49; Status DC Propofol (Diprivan) 200 mg STK-MED ONCE IV ; Start 07/31/20 at 08:12; Stop 07/31/20 at 08:13; Status DC Glycopyrrolate (Robinul) 1 mg STK-MED ONCE .ROUTE ; Start 07/31/20 at 08:15; Stop 07/31/20 at 08:16; Status DC Neostigmine Clinton (Neostigmine Methylsulfate) 5 mg STK-MED ONCE .ROUTE ; Start 07/31/20 at 08:15; Stop 07/31/20 at 08:16; Status DC Fentanyl Citrate (Fentanyl 2ml Vial) 100 mcg STK-MED ONCE .ROUTE ; Start 07/31/20 at 08:26; Stop 07/31/20 at 08:26; Status DC Morphine Sulfate (Morphine Sulfate) 2 mg STK-MED ONCE .ROUTE ; Start 07/31/20 at 08:47; Stop 07/31/20 at 08:47; Status DC Hydromorphone HCl (Dilaudid) 2 mg STK-MED ONCE .ROUTE ; Start 07/31/20 at 08:54; Stop 07/31/20 at 08:54; Status DC Prochlorperazine Edisylate (Compazine) 10 mg STK-MED ONCE .ROUTE ; Start 07/31/20 at 09:10; Stop 07/31/20 at 09:10; Status DC Fentanyl Citrate (Fentanyl 2ml Vial) 100 mcg STK-MED ONCE .ROUTE ; Start 07/31/20 at 09:20; Stop 07/31/20 at 09:21; Status DC Hydromorphone HCl (Dilaudid) 2 mg STK-MED ONCE .ROUTE ; Start 07/31/20 at 09:43; Stop 07/31/20 at 09:44; Status DC Morphine Sulfate (Morphine Sulfate) 2 mg PRN Q2HR PRN IV PAIN Last administered on 08/02/20at 16:13; Start 07/31/20 at 12:45 Gabapentin (Neurontin) 300 mg TID PO Last administered on 08/04/20at 13:33; Start 07/31/20 at 22:00 Acetaminophen/ Hydrocodone Bitart (Lortab 10/325) 1 tab PRN Q4HRS PRN PO SEVERE PAIN 7-10, 1ST CHOICE Last administered on 08/01/20at 08:50; Start 07/31/20 at 21:30 Trazodone HCl (Desyrel) 100 mg QHS PO ; Start 08/01/20 at 21:00; Stop 08/01/20 at 09:42; Status DC Albuterol Sulfate (Ventolin Neb Soln) 2.5 mg PRN Q6HRS PRN NEB SHORTNESS OF BREATH; Start 08/01/20 at 09:45 Oxycodone/ Acetaminophen (Percocet 10/325) 1 tab PRN Q4HRS PRN PO SEVERE PAIN 7-10, 2ND CHOICE Last administered on 08/04/20at 19:21; Start 08/01/20 at 11:45 Multivitamins (Thera M Plus) 1 tab DAILY PO Last administered on 08/04/20 09:28; Start 08/02/20 at 12:00 Docusate Sodium (Colace) 100 mg BID PO Last administered on 08/04/20at 09:28; Start 08/03/20 at 12:00 Active Scripts Active Reported Trazodone Hcl 100 Mg Tablet 1 Tab PO QHS Wellbutrin Sr (Bupropion Hcl) 150 Mg Tablet.er 0.5 Tab PO BID Escitalopram Oxalate 20 Mg Tablet 1 Tab PO DAILY Spironolactone 25 Mg Tablet 1 Tab PO DAILY Metoprolol Succinate ( Xl ) (Metoprolol Succinate) 25 Mg Tab.er.24h 25 Mg PO DAILY One Daily For Women Tablet (Folic Acid/Mv,Fe,Other Min) 1 Each Tablet 1 Each PO Omeprazole 40 Mg Capsule.dr 1 Cap PO DAILY Ventolin Hfa Inhaler (Albuterol Sulfate) 18 Gm Hfa.aer.ad 2 Puff INH Q4HRS Trazodone Hcl 100 Mg Tablet 1 Tab PO QHS Vitals/I & O Vital Sign - Last 24 Hours 08/03/20 08/03/20 08/03/20 08/03/20 20:00 21:15 22:15 23:23 Temp 97.7 97.7 Pulse 67 Resp 18 18 18 B/P (MAP) 146/84 (104) Pulse Ox 99 99 98 O2 Delivery Nasal Cannula Nasal Cannula Nasal Cannula Nasal Cannula O2 Flow Rate 2.0 2.0 2.0 2.0 08/04/20 08/04/20 08/04/20 08/04/20 01:19 02:19 03:22 06:03 Temp 97.8 97.8 Pulse 62 Resp 18 18 18 18 B/P (MAP) 127/54 (78) Pulse Ox 98 98 95 95 O2 Delivery Nasal Cannula Nasal Cannula Nasal Cannula Nasal Cannula O2 Flow Rate 2.0 2.0 2.0 2.0 08/04/20 08/04/20 08/04/20 08/04/20 07:00 07:03 09:28 09:29 Temp 98.0 98.0 Pulse 63 63 Resp 18 B/P (MAP) 160/77 (104) 160/77 Pulse Ox 98 95 O2 Delivery Nasal Cannula Nasal Cannula Room Air O2 Flow Rate 2.0 2.0 08/04/20 08/04/20 08/04/20 08/04/20 10:25 10:29 13:30 14:30 Temp 97.8 97.8 Pulse 64 Resp 18 B/P (MAP) 131/68 (89) Pulse Ox 99 O2 Delivery Nasal Cannula Room Air Room Air Room Air O2 Flow Rate 2.0 08/04/20 08/04/20 14:35 19:21 Temp 97.9 97.9 Pulse 59 Resp 18 B/P (MAP) 154/83 (106) Pulse Ox 97 O2 Delivery Nasal Cannula Room Air O2 Flow Rate 2.0 Intake and Output 08/03/20 08/03/20 08/04/20 15:00 23:00 07:00 Intake Total 420 ml 480 ml Balance 420 ml 480 ml Justicifation of Admission Dx: Justifications for Admission: Justification of Admission Dx: N/A DANIELLA MEZA MD Aug 04, 2020 19:24
[2020-08-04 19:30] VITALS: BP 134/62
[2020-08-04] MEDS ORDERED: HYDROcodone/APAP 10/325 1 TAB TABLET PO PRN (19:30)
[2020-08-04] MEDS: LORazepam 0.5 MG TABLET PO PRN (20:32)
[2020-08-04] MEDS: traZODone 100 MG TABLET. PO SCH (20:32)
[2020-08-04 23:20] VITALS: BP 142/66
[2020-08-05] MEDS: oxyCODONE/APAP 10/325 1 TAB TABLET PO PRN ×6 (00:28→21:07)
[2020-08-05 03:35] VITALS: BP 121/64
[2020-08-05 07:00] VITALS: BP 151/98
[2020-08-05] MEDS: DOCUSATE SODIUM 100 MG CAPSULE. PO SCH ×2 (08:42→21:01)
[2020-08-05] MEDS: buPROPion 75 MG TABLET. PO SCH ×2 (08:42→21:01)
[2020-08-05] MEDS: GABAPENTIN 300 MG CAPSULE. PO SCH ×3 (08:42→21:01)
[2020-08-05] MEDS: SPIRONOLACTONE 25 MG TABLET PO SCH (08:42)
[2020-08-05] MEDS: MULTIVITAMIN with MINERAL TABLET. PO SCH (08:42)
[2020-08-05] MEDS: CITALOPRAM 20 MG TABLET. PO SCH (08:42)
[2020-08-05] MEDS: PANTOPRAZOLE 40 MG TABLET.DR. PO SCH (08:42)
[2020-08-05] MEDS: METOPROLOL SUCC 24HR ER 25 MG TAB.ER.24H. PO SCH (08:42)
[2020-08-05 09:23] LABS: BASO # 0.1 x10^3/uL (0.0-0.2); BASO % 1 % (0-3); EOS # 0.2 x10^3/uL (0.0-0.7); EOS % 3 % (0-3); HEMOGLOBIN 13.6 g/dL (12.0-15.5); LYMPH # 2.9 x10^3/uL (1.0-4.8); LYMPH % 36 % (24-48); MEAN CORPUSCULAR HEMOGLOBIN 28 pg (25-35); MEAN CORPUSCULAR HGB CONC 33 g/dL (31-37); MEAN CORPUSCULAR VOLUME 86 fL (79-100); MONO # 0.4 x10^3/uL (0.0-1.1); MONO % 5 % (0-9); NEUT # 4.5 x10^3/uL (1.8-7.7); NEUT % 56 % (31-73); PLATELET COUNT 308 x10^3/uL (140-400); RED BLOOD COUNT 4.78 x10^6/uL (3.50-5.40); RED CELL DISTRIBUTION WIDTH 18.9 % (11.5-14.5); WHITE BLOOD COUNT 8.1 x10^3/uL (4.0-11.0)
[2020-08-05 09:31] LABS: CREATININE 0.8 mg/dL (0.6-1.0); GFR 75.6; POTASSIUM 3.9 mmol/L (3.5-5.1)
--- NOTE | 2020-08-05 09:54 | NUR ---
SW following. Discussed with RN, pt from home alone, uses o2 at home, cardiac diet, COVID-19 negative. PT/OT ordered. TOMAS will continue to follow. Addendum: 08/05/20 at 1320 by JAVIER MARIN TOMAS met with pt, pt needing a kneeling walker - TOMAS contacted some [employer] - they either do not have the item, or they do not take pt's insurance. [facility] reported medicaid does not cover walkers. [facility] stated they do not bill insurance but pt can rent a walker for $85 a month. TOMAS met with pt, pt agreeable and is not concerned about the cost. Pt reporting she needs a bedside commode, and is fine with paying for this too. TOMAS contacted [facility] back to query about the commode, and begin referral process- had to leave voicemail. TOMAS faxed scripts and facesheet to [facility]. Awaiting confirmation back. Pt reported her friend with truck can take her home, but not until tomorrow. RN notified. TOMAS will continue to follow.
[2020-08-05 11:00] VITALS: BP 150/93
[2020-08-05 15:00] VITALS: BP 149/92
--- NOTE | 2020-08-05 16:43 | PDOC ---
PROGRESS NOTES Date of Service: DATE: 08/05/20 TIME: 16:42 Chief Complaint Chief Complaint Left distal fibula fracture with talar shift and syndesmotic injury Recent gastric bypass surgery Asthma CHF COPD Depression GERD Hyperlipidemia Hypertension Migraines RLS Obstructive Sleep apnea Cholecystectomy Back surgery plan: We will increase the frequency of her pain meds in the acute setting patient understand that she will go back to her normal regimen after 3 days Hopefully discharge in the a.m. Pain management plan discussed with orthopedic service consultant History of Present Illness History of Present Illness The patient is a pleasant 50-year-old female who underwent gastric bypass within the past few months. She has been having some complications from that with loose stool. She has been quite weak. She fell a week ago, trying to get to the bathroom. She hyperflexed both ankles. She was going to go to the ER, but was concerned about bothering anybody. Also, it was the holidays. Also, she was worried about catching COVID-19. Now, she has finally showed up in the ER. We have done some imaging and indeed she does have an ankle fracture on the right and the left foot has acute left fifth metatarsal fracture. I discussed the case with ER physician. We are going to admit the patient and consult Orthopedics. 07/31 Patient seen and examined Chart reviewed Discussed with RN Discussed with case management Patient is comfortable 08/01 Patient seen and examined Chart reviewed Discussed with RN Discussed with case management Patient is comfortable and was resting when we seen her 08/02 Patient seen and examined Chart reviewed Discussed with RN Patient is comfortable and denies pain 08/03 Patient seen and examined Chart reviewed Discussed with RN Patient states slight increase in pain, she was resting when we seen her 08/04 No acute events reported overnight, case discussed with nursing staff patient in no acute distress no complaints during my visit 08/05 Pain seems to be well controlled, patient trying to figure out the logistics of transitioning home given that she lives by herself and she will need support from her friends. Case management also actively helping with the discharge process hopefully in the a.m. Vitals Vitals Vital Signs Date Time Temp Pulse Resp B/P (MAP) Pulse Ox O2 Delivery O2 Flow Rate FiO2 08/05/20 15:00 98.2 66 18 149/92 (111) 94 Room Air 98.2 08/05/20 07:39 2.0 Physical Exam General: Alert, No acute distress Heart: Regular rate, No murmurs Lungs: Clear Abdomen: Normal bowel sounds, No tenderness Extremities: No clubbing, Normal pulses Skin: No rashes, Other (no itching) Labs LABS Laboratory Tests Test 08/05/20 08:27 White Blood Count 8.1 x10^3/uL (4.0-11.0) Red Blood Count 4.78 x10^6/uL (3.50-5.40) Hemoglobin 13.6 g/dL (12.0-15.5) Hematocrit 41.0 % (36.0-47.0) Mean Corpuscular Volume 86 fL (79-100) Mean Corpuscular Hemoglobin 28 pg (25-35) Mean Corpuscular Hemoglobin Concent 33 g/dL (31-37) Red Cell Distribution Width 18.9 % (11.5-14.5) Platelet Count 308 x10^3/uL (140-400) Neutrophils (%) (Auto) 56 % (31-73) Lymphocytes (%) (Auto) 36 % (24-48) Monocytes (%) (Auto) 5 % (0-9) Eosinophils (%) (Auto) 3 % (0-3) Basophils (%) (Auto) 1 % (0-3) Neutrophils # (Auto) 4.5 x10^3/uL (1.8-7.7) Lymphocytes # (Auto) 2.9 x10^3/uL (1.0-4.8) Monocytes # (Auto) 0.4 x10^3/uL (0.0-1.1) Eosinophils # (Auto) 0.2 x10^3/uL (0.0-0.7) Basophils # (Auto) 0.1 x10^3/uL (0.0-0.2) Sodium Level 138 mmol/L (136-145) Potassium Level 3.9 mmol/L (3.5-5.1) Chloride Level 100 mmol/L (98-107) Carbon Dioxide Level 29 mmol/L (21-32) Anion Gap 9 (6-14) Blood Urea Nitrogen 11 mg/dL (7-20) Creatinine 0.8 mg/dL (0.6-1.0) Estimated GFR (Cockcroft-Gault) 75.6 Glucose Level 96 mg/dL (70-99) Calcium Level 10.0 mg/dL (8.5-10.1) Assessment and Plan Assessmemt and Plan Problems Medical Problems: (1) Closed right ankle fracture Status: Acute (2) Fall at home Status: Acute (3) Foot fracture, left Status: Acute Comment Review of Relevant I have reviewed the following items violetta (where applicable) has been applied. Labs Laboratory Tests Test 08/04/20 07:00 08/05/20 08:27 White Blood Count 7.0 x10^3/uL (4.0-11.0) 8.1 x10^3/uL (4.0-11.0) Red Blood Count 4.23 x10^6/uL (3.50-5.40) 4.78 x10^6/uL (3.50-5.40) Hemoglobin 11.8 g/dL (12.0-15.5) 13.6 g/dL (12.0-15.5) Hematocrit 36.4 % (36.0-47.0) 41.0 % (36.0-47.0) Mean Corpuscular Volume 86 fL (79-100) 86 fL (79-100) Mean Corpuscular Hemoglobin 28 pg (25-35) 28 pg (25-35) Mean Corpuscular Hemoglobin Concent 32 g/dL (31-37) 33 g/dL (31-37) Red Cell Distribution Width 19.3 % (11.5-14.5) 18.9 % (11.5-14.5) Platelet Count 281 x10^3/uL (140-400) 308 x10^3/uL (140-400) Neutrophils (%) (Auto) 48 % (31-73) 56 % (31-73) Lymphocytes (%) (Auto) 42 % (24-48) 36 % (24-48) Monocytes (%) (Auto) 7 % (0-9) 5 % (0-9) Eosinophils (%) (Auto) 3 % (0-3) 3 % (0-3) Basophils (%) (Auto) 1 % (0-3) 1 % (0-3) Neutrophils # (Auto) 3.4 x10^3/uL (1.8-7.7) 4.5 x10^3/uL (1.8-7.7) Lymphocytes # (Auto) 2.9 x10^3/uL (1.0-4.8) 2.9 x10^3/uL (1.0-4.8) Monocytes # (Auto) 0.5 x10^3/uL (0.0-1.1) 0.4 x10^3/uL (0.0-1.1) Eosinophils # (Auto) 0.2 x10^3/uL (0.0-0.7) 0.2 x10^3/uL (0.0-0.7) Basophils # (Auto) 0.0 x10^3/uL (0.0-0.2) 0.1 x10^3/uL (0.0-0.2) Sodium Level 141 mmol/L (136-145) 138 mmol/L (136-145) Potassium Level 4.1 mmol/L (3.5-5.1) 3.9 mmol/L (3.5-5.1) Chloride Level 103 mmol/L (98-107) 100 mmol/L (98-107) Carbon Dioxide Level 30 mmol/L (21-32) 29 mmol/L (21-32) Anion Gap 8 (6-14) 9 (6-14) Blood Urea Nitrogen 10 mg/dL (7-20) 11 mg/dL (7-20) Creatinine 0.8 mg/dL (0.6-1.0) 0.8 mg/dL (0.6-1.0) Estimated GFR (Cockcroft-Gault) 75.6 75.6 Glucose Level 91 mg/dL (70-99) 96 mg/dL (70-99) Calcium Level 9.1 mg/dL (8.5-10.1) 10.0 mg/dL (8.5-10.1) Laboratory Tests Test 08/05/20 08:27 White Blood Count 8.1 x10^3/uL (4.0-11.0) Red Blood Count 4.78 x10^6/uL (3.50-5.40) Hemoglobin 13.6 g/dL (12.0-15.5) Hematocrit 41.0 % (36.0-47.0) Mean Corpuscular Volume 86 fL (79-100) Mean Corpuscular Hemoglobin 28 pg (25-35) Mean Corpuscular Hemoglobin Concent 33 g/dL (31-37) Red Cell Distribution Width 18.9 % (11.5-14.5) Platelet Count 308 x10^3/uL (140-400) Neutrophils (%) (Auto) 56 % (31-73) Lymphocytes (%) (Auto) 36 % (24-48) Monocytes (%) (Auto) 5 % (0-9) Eosinophils (%) (Auto) 3 % (0-3) Basophils (%) (Auto) 1 % (0-3) Neutrophils # (Auto) 4.5 x10^3/uL (1.8-7.7) Lymphocytes # (Auto) 2.9 x10^3/uL (1.0-4.8) Monocytes # (Auto) 0.4 x10^3/uL (0.0-1.1) Eosinophils # (Auto) 0.2 x10^3/uL (0.0-0.7) Basophils # (Auto) 0.1 x10^3/uL (0.0-0.2) Sodium Level 138 mmol/L (136-145) Potassium Level 3.9 mmol/L (3.5-5.1) Chloride Level 100 mmol/L (98-107) Carbon Dioxide Level 29 mmol/L (21-32) Anion Gap 9 (6-14) Blood Urea Nitrogen 11 mg/dL (7-20) Creatinine 0.8 mg/dL (0.6-1.0) Estimated GFR (Cockcroft-Gault) 75.6 Glucose Level 96 mg/dL (70-99) Calcium Level 10.0 mg/dL (8.5-10.1) Medications Current Medications Morphine Sulfate (Morphine Sulfate) 4 mg 1X ONCE IV Last administered on 07/30/20at 13:20; Start 07/30/20 at 12:30; Stop 07/30/20 at 12:31; Status DC Ondansetron HCl (Zofran) 4 mg 1X ONCE IVP Last administered on 07/30/20at 13:21; Start 07/30/20 at 12:30; Stop 07/30/20 at 12:31; Status DC Acetaminophen/ Hydrocodone Bitart (Lortab 5/325) 1 tab PRN Q4HRS PRN PO MODERATE PAIN Last administered on 07/31/20at 19:23; Start 07/30/20 at 15:45; Stop 08/04/20 at 19:27; Status DC Bupropion HCl (Wellbutrin) 75 mg BID PO Last administered on 08/05/20 08:42; Start 07/30/20 at 21:00 Metoprolol Succinate (Toprol Xl) 25 mg DAILY PO Last administered on 08/05/20 08:42; Start 07/31/20 at 09:00 Spironolactone (Aldactone) 25 mg DAILY PO Last administered on 08/05/20 08:42; Start 07/31/20 at 09:00 Trazodone HCl (Desyrel) 100 mg QHS PO Last administered on 08/04/20 20:32; Start 07/30/20 at 21:00 Citalopram Hydrobromide (CeleXA) 40 mg DAILY PO Last administered on 08/05/20 08:42; Start 07/31/20 at 09:00 Pantoprazole Sodium (Protonix) 40 mg DAILYAC PO Last administered on 08/05/20 08:42; Start 07/31/20 at 07:30 Lorazepam (Ativan) 0.5 mg PRN Q12HRS PRN PO ANXIETY / AGITATION Last administered on 08/04/20 20:32; Start 07/30/20 at 20:00 Fentanyl Citrate (Fentanyl 2ml Vial) 25 mcg PRN Q5MIN PRN IV MILD PAIN 1-3; Start 07/31/20 at 03:15; Stop 07/31/20 at 16:10; Status DC Fentanyl Citrate (Fentanyl 2ml Vial) 50 mcg PRN Q5MIN PRN IV MODERATE TO SEVERE PAIN Last administered on 07/31/20at 09:31; Start 07/31/20 at 03:15; Stop 07/31/20 at 16:10; Status DC Morphine Sulfate (Morphine Sulfate) 1 mg PRN Q10MIN PRN IV SEVERE PAIN 7-10 Last administered on 07/31/20at 09:04; Start 07/31/20 at 03:15; Stop 07/31/20 at 16:10; Status DC Ringer's Solution 1,000 ml @ 30 mls/hr Q24H IV ; Start 07/31/20 at 03:15; Stop 07/31/20 at 15:14; Status DC Hydromorphone HCl (Dilaudid) 0.5 mg PRN Q10MIN PRN IV SEV PAIN, Second choice Last administered on 07/31/20at 09:56; Start 07/31/20 at 03:15; Stop 07/31/20 at 16:10; Status DC Prochlorperazine Edisylate (Compazine) 5 mg PACU PRN PRN IV NAUSEA, MRX1 Last administered on 07/31/20at 09:23; Start 07/31/20 at 03:15; Stop 07/31/20 at 16:11; Status DC Propofol (Diprivan) 200 mg STK-MED ONCE IV ; Start 07/31/20 at 06:30; Stop 07/31/20 at 06:31; Status DC Lidocaine HCl (Lidocaine Pf 2% Vial) 5 ml STK-MED ONCE .ROUTE ; Start 07/31/20 at 06:30; Stop 07/31/20 at 06:31; Status DC Dexamethasone Sodium Phosphate (Decadron) 4 mg STK-MED ONCE .ROUTE ; Start 07/31/20 at 06:30; Stop 07/31/20 at 06:31; Status DC Ondansetron HCl (Zofran) 4 mg STK-MED ONCE .ROUTE ; Start 07/31/20 at 06:30; Stop 07/31/20 at 06:31; Status DC Rocuronium Brock (Zemuron) 50 mg STK-MED ONCE .ROUTE ; Start 07/31/20 at 06:31; Stop 07/31/20 at 06:31; Status DC Fentanyl Citrate (Fentanyl 5ml Vial) 250 mcg STK-MED ONCE .ROUTE ; Start 07/31/20 at 06:55; Stop 07/31/20 at 06:55; Status DC Midazolam HCl (Versed) 2 mg STK-MED ONCE .ROUTE ; Start 07/31/20 at 07:02; Stop 07/31/20 at 07:02; Status DC Cefazolin Sodium (Ancef) 1 gm STK-MED ONCE IVP ; Start 07/31/20 at 07:27; Stop 07/31/20 at 07:27; Status DC Cefazolin Sodium/ Dextrose 50 ml @ 100 mls/hr 1X ONCE IV Last administered on 07/31/20at 07:42; Start 07/31/20 at 07:45; Stop 07/31/20 at 08:16; Status DC Cefazolin Sodium (Ancef) 1 gm STK-MED ONCE IVP ; Start 07/31/20 at 07:42; Stop 07/31/20 at 07:43; Status DC Sevoflurane (Ultane) 90 ml STK-MED ONCE IH ; Start 07/31/20 at 07:47; Stop 07/31/20 at 07:47; Status DC Metoprolol Tartrate (Lopressor Vial) 5 mg STK-MED ONCE IVP ; Start 07/31/20 at 07:49; Stop 07/31/20 at 07:49; Status DC Propofol (Diprivan) 200 mg STK-MED ONCE IV ; Start 07/31/20 at 08:12; Stop 07/31/20 at 08:13; Status DC Glycopyrrolate (Robinul) 1 mg STK-MED ONCE .ROUTE ; Start 07/31/20 at 08:15; Stop 07/31/20 at 08:16; Status DC Neostigmine Brock (Neostigmine Methylsulfate) 5 mg STK-MED ONCE .ROUTE ; Start 07/31/20 at 08:15; Stop 07/31/20 at 08:16; Status DC Fentanyl Citrate (Fentanyl 2ml Vial) 100 mcg STK-MED ONCE .ROUTE ; Start 07/31/20 at 08:26; Stop 07/31/20 at 08:26; Status DC Morphine Sulfate (Morphine Sulfate) 2 mg STK-MED ONCE .ROUTE ; Start 07/31/20 at 08:47; Stop 07/31/20 at 08:47; Status DC Hydromorphone HCl (Dilaudid) 2 mg STK-MED ONCE .ROUTE ; Start 07/31/20 at 0 8:54; Stop 07/31/20 at 08:54; Status DC Prochlorperazine Edisylate (Compazine) 10 mg STK-MED ONCE .ROUTE ; Start 07/31/20 at 09:10; Stop 07/31/20 at 09:10; Status DC Fentanyl Citrate (Fentanyl 2ml Vial) 100 mcg STK-MED ONCE .ROUTE ; Start 07/31/20 at 09:20; Stop 07/31/20 at 09:21; Status DC Hydromorphone HCl (Dilaudid) 2 mg STK-MED ONCE .ROUTE ; Start 07/31/20 at 09:43; Stop 07/31/20 at 09:44; Status DC Morphine Sulfate (Morphine Sulfate) 2 mg PRN Q2HR PRN IV PAIN Last administered on 08/02/20at 16:13; Start 07/31/20 at 12:45 Gabapentin (Neurontin) 300 mg TID PO Last administered on 08/05/20at 13:06; Start 07/31/20 at 22:00 Acetaminophen/ Hydrocodone Bitart (Lortab 10/325) 1 tab PRN Q4HRS PRN PO SEVERE PAIN 7-10, 1ST CHOICE Last administered on 08/01/20at 08:50; Start 07/31/20 at 21:30; Stop 08/04/20 at 19:27; Status DC Trazodone HCl (Desyrel) 100 mg QHS PO ; Start 08/01/20 at 21:00; Stop 08/01/20 at 09:42; Status DC Albuterol Sulfate (Ventolin Neb Soln) 2.5 mg PRN Q6HRS PRN NEB SHORTNESS OF BREATH; Start 08/01/20 at 09:45 Oxycodone/ Acetaminophen (Percocet 10/325) 1 tab PRN Q4HRS PRN PO SEVERE PAIN 7-10, 2ND CHOICE Last administered on 08/05/20at 13:07; Start 08/01/20 at 11:45 Multivitamins (Thera M Plus) 1 tab DAILY PO Last administered on 08/05/20at 08:42; Start 08/02/20 at 12:00 Docusate Sodium (Colace) 100 mg BID PO Last administered on 08/05/20at 08:42; Start 08/03/20 at 12:00 Acetaminophen/ Hydrocodone Bitart (Lortab 10/325) 1 tab PRN Q3HRS PRN PO SEVERE PAIN 7-10, 1ST CHOICE; Start 08/04/20 at 19:30 Active Scripts Active Reported Trazodone Hcl 100 Mg Tablet 1 Tab PO QHS Wellbutrin Sr (Bupropion Hcl) 150 Mg Tablet.er 0.5 Tab PO BID Escitalopram Oxalate 20 Mg Tablet 1 Tab PO DAILY Spironolactone 25 Mg Tablet 1 Tab PO DAILY Metoprolol Succinate ( Xl ) (Metoprolol Succinate) 25 Mg Tab.er.24h 25 Mg PO DAILY One Daily For Women Tablet (Folic Acid/Mv,Fe,Other Min) 1 Each Tablet 1 Each PO Omeprazole 40 Mg Capsule.dr 1 Cap PO DAILY Ventolin Hfa Inhaler (Albuterol Sulfate) 18 Gm Hfa.aer.ad 2 Puff INH Q4HRS Trazodone Hcl 100 Mg Tablet 1 Tab PO QHS Vitals/I & O Vital Sign - Last 24 Hours 08/04/20 08/04/20 08/04/20 08/04/20 19:21 19:30 20:00 20:32 Temp 99.5 99.5 Pulse 64 Resp 18 16 B/P (MAP) 134/62 (86) Pulse Ox 98 98 O2 Delivery Room Air Nasal Cannula Nasal Cannula Nasal Cannula O2 Flow Rate 2.0 2.0 2.0 08/04/20 08/05/20 08/05/20 08/05/20 23:20 00:28 01:57 03:35 Temp 98.1 97.8 98.1 97.8 Pulse 67 59 Resp 18 14 16 18 B/P (MAP) 142/66 (91) 121/64 (83) Pulse Ox 97 97 97 98 O2 Delivery Nasal Cannula Nasal Cannula Nasal Cannula Nasal Cannula O2 Flow Rate 2.0 2.0 2.0 2.0 08/05/20 08/05/20 08/05/20 08/05/20 04:42 05:42 07:00 07:39 Temp 98.3 98.3 Pulse 70 Resp 20 14 16 B/P (MAP) 151/98 (115) Pulse Ox 98 99 O2 Delivery Nasal Cannula Nasal Cannula Room Air Nasal Cannula O2 Flow Rate 2.0 2.0 2.0 08/05/20 08/05/20 08/05/20 08:42 11:00 15:00 Temp 97.8 98.2 97.8 98.2 Pulse 70 64 66 Resp 16 18 B/P (MAP) 151/98 150/93 (112) 149/92 (111) Pulse Ox 96 94 O2 Delivery Room Air Room Air Intake and Output 08/04/20 08/04/20 08/05/20 15:00 23:00 07:00 Intake Total 240 ml 950 ml Balance 240 ml 950 ml Justicifation of Admission Dx: Justifications for Admission: Justification of Admission Dx: N/A DANIELLA MEZA MD Aug 05, 2020 16:43
[2020-08-05 19:15] VITALS: BP 137/67
[2020-08-05] MEDS: traZODone 100 MG TABLET. PO SCH (21:01)
[2020-08-05] MEDS: LORazepam 0.5 MG TABLET PO PRN (21:01)
[2020-08-05 23:22] VITALS: BP 121/56
[2020-08-06] MEDS: oxyCODONE/APAP 10/325 1 TAB TABLET PO PRN ×3 (01:24→10:47)
[2020-08-06 03:02] VITALS: BP 115/49
[2020-08-06] MEDS: PANTOPRAZOLE 40 MG TABLET.DR. PO SCH (05:28)
[2020-08-06 07:00] VITALS: BP 143/69
[2020-08-06 07:06] LABS: BASO # 0.1 x10^3/uL (0.0-0.2); BASO % 1 % (0-3); EOS # 0.2 x10^3/uL (0.0-0.7); EOS % 2 % (0-3); HEMATOCRIT 38.6 % (36.0-47.0); HEMOGLOBIN 12.5 g/dL (12.0-15.5); LYMPH # 3.6 x10^3/uL (1.0-4.8); LYMPH % 42 % (24-48); MEAN CORPUSCULAR HEMOGLOBIN 28 pg (25-35); MEAN CORPUSCULAR HGB CONC 33 g/dL (31-37); MEAN CORPUSCULAR VOLUME 86 fL (79-100); MONO # 0.5 x10^3/uL (0.0-1.1); MONO % 6 % (0-9); NEUT # 4.3 x10^3/uL (1.8-7.7); NEUT % 50 % (31-73); PLATELET COUNT 330 x10^3/uL (140-400); RED BLOOD COUNT 4.48 x10^6/uL (3.50-5.40); RED CELL DISTRIBUTION WIDTH 18.9 % (11.5-14.5); WHITE BLOOD COUNT 8.7 x10^3/uL (4.0-11.0)
[2020-08-06 07:49] LABS: CALCIUM 9.7 mg/dL (8.5-10.1); CREATININE 0.9 mg/dL (0.6-1.0); POTASSIUM 4.2 mmol/L (3.5-5.1)
[2020-08-06] MEDS ORDERED: HYDR-2769 PO (07:49)
--- NOTE | 2020-08-06 07:50 | SNU/HH DC ---
DISCHARGE WITH HOME HEALTH DISCHARGE INFORMATION: Discharge Date: Aug 06, 2020 Final Diagnosis: Problems Medical Problems: (1) Closed right ankle fracture Status: Acute (2) Fall at home Status: Acute (3) Foot fracture, left Status: Acute Condition on Discharge: Stable CODE STATUS: Code Status: Full HOME HEALTH: Face to Face: I certify this patient is under my care and that I, or a nurse practitioner or physician's seismic survey assistant working with me, had a face to face encounter that meets the physician face to face encounter requirements with this patient on []. Medical Complications: FX RN For Eval/Treatment: Yes Physical Therapy For: Evalulation/Treatment Occupational Therapy For: Evaluation/Treatment Pt Meets Homebound Status: Limited distance walking POST DISCHARGE ORDERS: Activity Instructions for Disc: No restrictions, Resume previous activity, Activity as tolerated Weight Bearing Status after Di: Full weight bearing Bathing Instructions: No Tub Bath until see Wound/Incision Care: Ice to area for comfort CHECKS AFTER DISCHARGE: Checks after discharge: Check blood press - daily, Check blood sugar, ac/hs TREATMENT/EQUIPMENT ORDERS: Adaptive Equipment Issued: None Discharge Respiratory Equipmen: CPAP CERTIFICATION STATEMENT: Certification Statement: Certification Statement: Based on the above finding, I certify that this patient is confined to the home and needs intermittent correction care, physical therapy and/or speech therapy, or continues to need occupational therapy.~ This patient is under my care, and I have initiated the establishment of the plan of care.~ This patient will be followed by myself or a community physician who will periodically review the plan of care. Home Meds Active Scripts Hydrocodone Bit/Acetaminophen (HYDROCODONE-APAP 10-325 ) 1 Tab Tablet, 1 TAB PO PRN Q3HRS PRN for SEVERE PAIN 7-10, 1ST CHOICE, #20 TAB Prov:DANIELLA MEZA MD 08/06/20 Reported Medications Trazodone Hcl (TRAZODONE HCL) 100 Mg Tablet, 1 TAB PO QHS for insomia, #30 TAB 1 Refill 07/30/20 Bupropion Hcl (WELLBUTRIN SR) 150 Mg Tablet.er, 0.5 TAB PO BID for dep, #60 TAB 5 Refills 07/30/20 Escitalopram Oxalate (ESCITALOPRAM OXALATE) 20 Mg Tablet, 1 TAB PO DAILY for dep, #30 TAB 5 Refills 20 Spironolactone (SPIRONOLACTONE) 25 Mg Tablet, 1 TAB PO DAILY for a, #90 TAB 1 Refill 07/30/20 Metoprolol Succinate (METOPROLOL SUCCINATE ( XL )) 25 Mg Tab.er.24h, 25 MG PO DAILY for FOR HYPERTENSION, #30 TAB 0 Refills 01/02/19 Folic Acid/Mv,Fe,Other Min (ONE DAILY FOR WOMEN TABLET) 1 Each Tablet, 1 EACH PO, TAB 02/14/18 Omeprazole (OMEPRAZOLE) 40 Mg Capsule.dr, 1 CAP PO DAILY, #30 CAP 3 Refills 02/14/18 Albuterol Sulfate (VENTOLIN HFA INHALER) 18 Gm Hfa.aer.ad, 2 PUFF INH Q4HRS for FOR ASTHMA, INHALER 0 Refills 10/20/16 Trazodone Hcl (TRAZODONE HCL) 100 Mg Tablet, 1 TAB PO QHS, #30 TAB 1 Refill 10/20/16 Discontinued Reported Medications Cholecalciferol (Vitamin D3) (VITAMIN D3) 1,000 Unit Capsule, 1000 UNIT PO, CAP 02/14/18 DANIELLA MEZA MD Aug 06, 2020 07:50
[2020-08-06] MEDS: SPIRONOLACTONE 25 MG TABLET PO SCH (08:33)
[2020-08-06] MEDS: METOPROLOL SUCC 24HR ER 25 MG TAB.ER.24H. PO SCH (08:33)
[2020-08-06] MEDS: MULTIVITAMIN with MINERAL TABLET. PO SCH (08:33)
[2020-08-06] MEDS: GABAPENTIN 300 MG CAPSULE. PO SCH (08:33)
[2020-08-06] MEDS: buPROPion 75 MG TABLET. PO SCH (08:33)
[2020-08-06] MEDS: DOCUSATE SODIUM 100 MG CAPSULE. PO SCH (08:33)
[2020-08-06] MEDS: CITALOPRAM 20 MG TABLET. PO SCH (08:33)
--- NOTE | 2020-08-06 09:48 | NUR ---
SW following. Discussed with RN, pt from home alone, uses oxygen at night. Commode and walker ordered from [employer]. Everything faxed yesterday (08/05/20). Pt has a ride home today. Discharge orders for home with home health - SW unable to find home health due to home health companies being at capacity for medicaid ([facility], [facility], [facility], [facility], [facility]). Discussed with pt yesterday about not being able to find home health - pt verbalized understanding. SW will continue to follow.
[2020-08-06 11:00] VITALS: BP 144/73
--- NOTE | 2020-08-06 11:44 | NUR ---
Discharge Note: DAMIAN JARVIS Discharge instructions and discharge home medications reviewed with Patient and a copy given. All questions have been answered and understanding verbalized. The following instructions and handouts were given: information about plan of care, follow up appointments, medications, weight bearing status, etc. Home medications returned to patient. Discontinued lines and drains: IV line in right AC and left hand removed, catheter tips intact. Patient discharged to home with self care with friend, wheelchair used for mobility to discharge vehicle.
--- NOTE | 2020-08-06 14:51 | PDOC3 ---
Discharge Summary Visit Information Date of Admission: Jul 30, 2020 Date of Discharge: Aug 06, 2020 Admitting Diagnosis Comment: Fall with right ankle fracture and left fifth metatarsal fracture. Final Diagnosis Problems Medical Problems: (1) Closed right ankle fracture Status: Acute (2) Fall at home Status: Acute (3) Foot fracture, left Status: Acute Left distal fibula fracture with talar shift and syndesmotic injury Recent gastric bypass surgery Asthma CHF COPD Depression GERD Hyperlipidemia Hypertension Migraines RLS Obstructive Sleep apnea Cholecystectomy Back surgery Brief Hospital Course Allergies Allergies Coded Allergies Type Severity Reaction Last Updated Verified NSAIDS (Non-Steroidal Anti-Inflamma Allergy Severe BLEEDING 12/20/19 Yes Penicillins Allergy Intermediate Hives 05/24/14 Yes levofloxacin Allergy Intermediate joint pain 05/24/14 Yes Vital Signs Vital Signs Date Time Temp Pulse Resp B/P (MAP) Pulse Ox O2 Delivery O2 Flow Rate FiO2 08/06/20 11:00 98.3 68 19 144/73 (96) 98 Nasal Cannula 2.0 98.3 Lab Results Laboratory Tests Test 08/05/20 08:27 08/06/20 05:35 White Blood Count 8.1 x10^3/uL (4.0-11.0) 8.7 x10^3/uL (4.0-11.0) Red Blood Count 4.78 x10^6/uL (3.50-5.40) 4.48 x10^6/uL (3.50-5.40) Hemoglobin 13.6 g/dL (12.0-15.5) 12.5 g/dL (12.0-15.5) Hematocrit 41.0 % (36.0-47.0) 38.6 % (36.0-47.0) Mean Corpuscular Volume 86 fL (79-100) 86 fL (79-100) Mean Corpuscular Hemoglobin 28 pg (25-35) 28 pg (25-35) Mean Corpuscular Hemoglobin Concent 33 g/dL (31-37) 33 g/dL (31-37) Red Cell Distribution Width 18.9 % (11.5-14.5) 18.9 % (11.5-14.5) Platelet Count 308 x10^3/uL (140-400) 330 x10^3/uL (140-400) Neutrophils (%) (Auto) 56 % (31-73) 50 % (31-73) Lymphocytes (%) (Auto) 36 % (24-48) 42 % (24-48) Monocytes (%) (Auto) 5 % (0-9) 6 % (0-9) Eosinophils (%) (Auto) 3 % (0-3) 2 % (0-3) Basophils (%) (Auto) 1 % (0-3) 1 % (0-3) Neutrophils # (Auto) 4.5 x10^3/uL (1.8-7.7) 4.3 x10^3/uL (1.8-7.7) Lymphocytes # (Auto) 2.9 x10^3/uL (1.0-4.8) 3.6 x10^3/uL (1.0-4.8) Monocytes # (Auto) 0.4 x10^3/uL (0.0-1.1) 0.5 x10^3/uL (0.0-1.1) Eosinophils # (Auto) 0.2 x10^3/uL (0.0-0.7) 0.2 x10^3/uL (0.0-0.7) Basophils # (Auto) 0.1 x10^3/uL (0.0-0.2) 0.1 x10^3/uL (0.0-0.2) Sodium Level 138 mmol/L (136-145) 139 mmol/L (136-145) Potassium Level 3.9 mmol/L (3.5-5.1) 4.2 mmol/L (3.5-5.1) Chloride Level 100 mmol/L (98-107) 103 mmol/L (98-107) Carbon Dioxide Level 29 mmol/L (21-32) 29 mmol/L (21-32) Anion Gap 9 (6-14) 7 (6-14) Blood Urea Nitrogen 11 mg/dL (7-20) 13 mg/dL (7-20) Creatinine 0.8 mg/dL (0.6-1.0) 0.9 mg/dL (0.6-1.0) Estimated GFR (Cockcroft-Gault) 75.6 66.0 Glucose Level 96 mg/dL (70-99) 87 mg/dL (70-99) Calcium Level 10.0 mg/dL (8.5-10.1) 9.7 mg/dL (8.5-10.1) Laboratory Tests Test 08/06/20 05:35 White Blood Count 8.7 x10^3/uL (4.0-11.0) Red Blood Count 4.48 x10^6/uL (3.50-5.40) Hemoglobin 12.5 g/dL (12.0-15.5) Hematocrit 38.6 % (36.0-47.0) Mean Corpuscular Volume 86 fL (79-100) Mean Corpuscular Hemoglobin 28 pg (25-35) Mean Corpuscular Hemoglobin Concent 33 g/dL (31-37) Red Cell Distribution Width 18.9 % (11.5-14.5) Platelet Count 330 x10^3/uL (140-400) Neutrophils (%) (Auto) 50 % (31-73) Lymphocytes (%) (Auto) 42 % (24-48) Monocytes (%) (Auto) 6 % (0-9) Eosinophils (%) (Auto) 2 % (0-3) Basophils (%) (Auto) 1 % (0-3) Neutrophils # (Auto) 4.3 x10^3/uL (1.8-7.7) Lymphocytes # (Auto) 3.6 x10^3/uL (1.0-4.8) Monocytes # (Auto) 0.5 x10^3/uL (0.0-1.1) Eosinophils # (Auto) 0.2 x10^3/uL (0.0-0.7) Basophils # (Auto) 0.1 x10^3/uL (0.0-0.2) Sodium Level 139 mmol/L (136-145) Potassium Level 4.2 mmol/L (3.5-5.1) Chloride Level 103 mmol/L (98-107) Carbon Dioxide Level 29 mmol/L (21-32) Anion Gap 7 (6-14) Blood Urea Nitrogen 13 mg/dL (7-20) Creatinine 0.9 mg/dL (0.6-1.0) Estimated GFR (Cockcroft-Gault) 66.0 Glucose Level 87 mg/dL (70-99) Calcium Level 9.7 mg/dL (8.5-10.1) Brief Hospital Course History of Present Illness The patient is a pleasant 50-year-old female who underwent gastric bypass within the past few months. She has been having some complications from that with loose stool. She has been quite weak. She fell a week ago, trying to get to the bathroom. She hyperflexed both ankles. She was going to go to the ER, but was concerned about bothering anybody. Also, it was the holidays. Also, she was worried about catching COVID-19. Now, she has finally showed up in the ER. We have done some imaging and indeed she does have an ankle fracture on the right and the left foot has acute left fifth metatarsal fracture. I discussed the case with ER physician. We are going to admit the patient and consult Orthopedics. 07/31 Patient seen and examined Chart reviewed Discussed with RN Discussed with case management Patient is comfortable 08/01 Patient seen and examined Chart reviewed Discussed with RN Discussed with case management Patient is comfortable and was resting when we seen her 08/02 Patient seen and examined Chart reviewed Discussed with RN Patient is comfortable and denies pain 08/03 Patient seen and examined Chart reviewed Discussed with RN Patient states slight increase in pain, she was resting when we seen her 08/04 No acute events reported overnight, case discussed with nursing staff patient in no acute distress no complaints during my visit 08/05 Pain seems to be well controlled, patient trying to figure out the logistics of transitioning home given that she lives by herself and she will need support from her friends. Case management also actively helping with the discharge process hopefully in the a.m. 08/06 Patient with no acute events reported overnight. Patient unfortunately to her insurance was not able to to have home health arranged for her by case management. She nevertheless has a good support system with friends and hopefully will do well. She has close follow-up with Dr. Barkley in the outpatient setting and also with Dr. Mai. All of her concerns were addressed to the best of my abilities hemodynamically stable upon discharge Physical Exam General: Alert, No acute distress Heart: Regular rate, No murmurs Lungs: Clear Abdomen: Normal bowel sounds, No tenderness Extremities: No clubbing, Normal pulses Skin: No rashes, Other (no itching) Assessment Assessment Right foot and ankle: 1. Acute minimally displaced right lateral malleolus fracture. 2. Irregularity of the medial malleolus concerning for acute avulsion fracture. 3. Widening of the ankle mortise. 4. Ankle soft tissue swelling. Left foot and ankle: 1. Acute left fifth metatarsal head intra-articular fracture with adjacent soft tissue swelling. 2. Mild irregularity of the left fifth proximal phalanx base, may represent non displaced fracture. 3. Ankle soft tissue swelling. Electronically signed by: Yo Watts DO (07/30/2020 11:42 AM) [id number] Discharge Information Condition at Discharge: Improved Follow Up: Weeks Disposition/Orders: D/C to Home Scheduled Albuterol Sulfate (Ventolin Hfa Inhaler) 18 Gm Hfa.aer.ad, 2 PUFF INH Q4HRS for FOR ASTHMA, Ref 0 (Reported) Entered as Reported by: Lucia Law on 10/20/16 0902 Last Action: Converted on 08/01/20 0940 by ARIADNA RESENDIZ Bupropion Hcl (Wellbutrin Sr) 150 Mg Tablet.er, 0.5 TAB PO BID for dep, #60 Ref 5 (Reported) Entered as Reported by: LAW CARO RN on 07/30/201455 Last Action: Continued on 07/30/201546 by LAW CARO RN Escitalopram Oxalate (Escitalopram Oxalate) 20 Mg Tablet, 1 TAB PO DAILY for dep, #30 Ref 5 (Reported) Entered as Reported by: LAW CARO RN on 07/30/201455 Last Action: Converted on 07/30/201546 by LAW CARO RN Metoprolol Succinate (Metoprolol Succinate ( Xl )) 25 Mg Tab.er.24h, 25 MG PO DAILY for FOR HYPERTENSION, #30 Ref 0 (Reported) Entered as Reported by: RAUL DHILLON on 01/02/19 1454 Last Action: Continued on 07/30/201546 by LAW CARO RN Omeprazole (Omeprazole) 40 Mg Capsule.dr, 1 CAP PO DAILY, #30 Ref 3 (Reported) Entered as Reported by: NIRU MALAVE on 02/14/18 0806 Last Action: Converted on 07/30/201546 by LAW CARO RN Spironolactone (Spironolactone) 25 Mg Tablet, 1 TAB PO DAILY for a, #90 Ref 1 (Reported) Entered as Reported by: LAW CARO RN on 07/30/20 1456 Last Action: Continued on 07/30/20 1547 by LAW CARO RN Trazodone Hcl (Trazodone Hcl) 100 Mg Tablet, 1 TAB PO QHS, #30 Ref 1 (Reported) Entered as Reported by: Lucia Law on 10/20/16 0902 Last Action: Continued on 07/30/20 1547 by LAW CARO RN Trazodone Hcl (Trazodone Hcl) 100 Mg Tablet, 1 TAB PO QHS for insomia, #30 Ref 1 (Reported) Entered as Reported by: CHARLENE ROSA on 07/30/20 1944 Last Taken: Unknown Dose on Unknown Date & Time Last Action: Continued on 08/01/20 0940 by ARIADNA RESENDIZ Scheduled PRN Hydrocodone Bit/Acetaminophen (Hydrocodone-Apap 10-325 ) 1 Tab Tablet, 1 TAB PO PRN Q3HRS PRN for SEVERE PAIN 7-10, 1ST CHOICE, #20 Prescribed by: DANIELLA MEZA MD on 08/06/20 0749 Miscellaneous Medications Folic Acid/Mv,Fe,Other Min (One Daily For Women Tablet) 1 Each Tablet, 1 EACH PO, (Reported) Entered as Reported by: NIRU MALAVE on 02/14/18 0806 Discontinued Medications Cholecalciferol (Vitamin D3) (Vitamin D3) 1,000 Unit Capsule, 1,000 UNIT PO, (Reported) Entered as Reported by: NIRU MALAVE on 02/14/18 0806 Last Action: Discontinued on 07/30/20 1453 by LAW CARO RN Justicifation of Admission Dx: Justifications for Admission: Justification of Admission Dx: N/A DANIELLA MEZA MD Aug 06, 2020 14:51
[2020-09-19] MEDS ORDERED: HYDR12.575 PO (16:03)
[2021-01-08] MEDS ORDERED: CALC-337 PO (15:13)
[2021-01-08] MEDS ORDERED: FLUT100D2 IH (15:29)
[2021-01-08] MEDS ORDERED: CLONAZEPAM1 MG PO (15:29)
[2021-01-08] MEDS ORDERED: FERR-36 PO (15:29)
== END 2020-08-06 11:34 | disposition home or self-care (01) | DRG 493 ==
LOC: ER 10:40 → 4 NORTH 12:20
PROVIDERS: ADMIT Internal Medicine; ATTEND Internal Medicine
PROC: 2W3RX1Z Immobilization of Left Lower Leg using Splint (ICD-10-PCS; 2020-07-30)
PROC: 2W3QX1Z Immobilization of Right Lower Leg using Splint (ICD-10-PCS; 2020-07-30)
PROC: 0SSF04Z Reposition Right Ankle Joint with Internal Fixation Device, Open Approach (ICD-10-PCS; 2020-07-31)
PROC: 0QSJ04Z Reposition Right Fibula with Internal Fixation Device, Open Approach (ICD-10-PCS; principal; 2020-07-31 07:30)
DX: S82.61XA Displaced fracture of lateral malleolus of right fibula, initial encounter for closed fracture (principal); Z68.41 Body mass index [BMI] 40.0-44.9, adult; S82.832A Other fracture of upper and lower end of left fibula, initial encounter for closed fracture; E78.00 Pure hypercholesterolemia, unspecified; E78.5 Hyperlipidemia, unspecified; F32.9 Major depressive disorder, single episode, unspecified; G25.81 Restless legs syndrome; G43.909 Migraine, unspecified, not intractable, without status migrainosus; G47.30 Sleep apnea, unspecified; I11.0 Hypertensive heart disease with heart failure; I50.9 Heart failure, unspecified; G47.33 Obstructive sleep apnea (adult) (pediatric); W01.0XXA Fall on same level from slipping, tripping and stumbling without subsequent striking against object, initial encounter; J44.9 Chronic obstructive pulmonary disease, unspecified; S93.431A Sprain of tibiofibular ligament of right ankle, initial encounter; K21.9 Gastro-esophageal reflux disease without esophagitis; S80.01XA Contusion of right knee, initial encounter; S80.02XA Contusion of left knee, initial encounter; Z83.3 Family history of diabetes mellitus; Z98.84 Bariatric surgery status; Z88.6 Allergy status to analgesic agent; Z88.1 Allergy status to other antibiotic agents; Z88.0 Allergy status to penicillin; Y93.89 Activity, other specified; Y92.091 Bathroom in other non-institutional residence as the place of occurrence of the external cause; Y99.8 Other external cause status; Z90.49 Acquired absence of other specified parts of digestive tract; Z20.822 Contact with and (suspected) exposure to COVID-19; E66.01 Morbid (severe) obesity due to excess calories
CPT/HCPCS: 29515; 36415; 76000; 80048; 85025; 87426; 96374; 96375; C1713; J0690; J0780; J1100; J1170; J2250; J2270; J2405; J2704; J2710; J3010; J3490; U0003; 73562-50; 73610-50; 73630-50; 97116-GP; 97530-GP; 97535-GO; 99285-25; G0378

== ENCOUNTER 2020-09-19 05:32 | Observation (INO) | payer OTHER ==
[~2020-09-19] VITALS: Ht 172.7 cm; Wt 121.9 kg
[~2020-09-19 05:32] MED LIST changes: +BUPR150T8 PO; +ESCITALOPRAM OX20 MG PO; +OMEP40CA45 PO; -OMEP40CA7 PO; +SPIR25TA5 PO
--- NOTE | 2020-09-19 05:49 | EKG ---
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
--- NOTE | 2020-09-19 06:19 | RAD ---
AP portable chest radiograph 09/19/2020 Clinical History: Chest pain. An AP erect portable digital radiograph of the chest was obtained. Comparison study is dated 12/20/2019. The cardiac silhouette is borderline enlarged. The thoracic aorta is minimally tortuous. No acute pul monary infiltrate is seen. No pleural effusion or pneumothorax is noted. Degenerative changes are see n involving the thoracic spine and both shoulders. Impression: No acute abnormality is seen. Electronically signed by: Justin Espino MD (09/19/2020 6:17 AM) [id number]
[2020-09-19 06:28] LABS: BASO # 0.1 x10^3/uL (0.0-0.2); BASO % 1 % (0-3); EOS # 0.1 x10^3/uL (0.0-0.7); EOS % 1 % (0-3); LYMPH # 3.9 x10^3/uL (1.0-4.8); LYMPH % 38 % (24-48); MEAN CORPUSCULAR HEMOGLOBIN 28 pg (25-35); MEAN CORPUSCULAR HGB CONC 32 g/dL (31-37); MEAN CORPUSCULAR VOLUME 87 fL (79-100); MONO # 0.6 x10^3/uL (0.0-1.1); MONO % 6 % (0-9); NEUT # 5.5 x10^3/uL (1.8-7.7); NEUT % 54 % (31-73); PLATELET COUNT 315 x10^3/uL (140-400); RED CELL DISTRIBUTION WIDTH 15.4 % (11.5-14.5); WHITE BLOOD COUNT 10.2 x10^3/uL (4.0-11.0)
[2020-09-19 06:31] LABS: PROTHROMBIN TIME PATIENT 13.1 SEC (11.7-14.0)
[2020-09-19 06:34] LABS: CREATININE 0.9 mg/dL (0.6-1.0); POTASSIUM 3.6 mmol/L (3.5-5.1)
[2020-09-19 06:35] LABS: D-DIMER 0.7 ug/mlFEU (0.00-0.50)
[2020-09-19 06:39] LABS: ALBUMIN 3.5 g/dL (3.4-5.0); ALBUMIN/GLOBULIN RATIO 0.9 (1.0-1.7); MAGNESIUM 1.9 mg/dL (1.8-2.4); TOTAL BILIRUBIN 0.4 mg/dL (0.2-1.0); TOTAL PROTEIN 7.6 g/dL (6.4-8.2)
[2020-09-19 06:49] LABS: CREATINE KINASE 31 U/L (26-192)
[2020-09-19] MEDS ORDERED: IOHEXOL 350 MG/ML 100 ML VIAL. IV ONE (07:00)
[2020-09-19] MEDS ORDERED: hydrALAZINE 20 MG/ML VIAL. IVP ONE (07:00)
[2020-09-19] MEDS ORDERED: LORazepam 0.5 MG TABLET PO ONE (07:00)
[2020-09-19] MEDS ORDERED: ASPIRIN CHEWABLE 81 MG TABLET. PO ONE (07:00)
[2020-09-19] MEDS ORDERED: CONTRAST GIVEN. MC PRN (07:00)
--- NOTE | 2020-09-19 08:06 | PDOC1 ---
History and Physical Date of Admission Date of Admission DATE: 09/19/20 TIME: 08:06 Identification/Chief Complaint Chief Complaint Chest pain Source Source: Chart review, Patient History of Present Illness History of Present Illness Patient is a 50-year-old female with past medical history CHF, hypertension, hyperlipidemia, who presents to the ER with complaints of worsening chest pain since Tuesday. She reports chest imaging that feels more like pressure, /, with associated fatigue. In the ED she did have some bradycardia that improved spontaneously. Hypertension that improved with hydralazine. Chest x-ray on admission showed no acute process. Will admit patient for further medical management. Past Medical History Cardiovascular: HTN Pulmonary: Asthma, COPD Past Surgical History Past Surgical History Right ankle surgery, gastric bypass Past Surgical History: Cholecystectomy, Other Family History Family History: Alcohol Abuse Social History Smoke: No ALCOHOL: heavy Drugs: Marijuana Current Problem List Problem List Problems Medical Problems: (1) Chest pain Status: Acute Current Medications Current Medications Current Medications Aspirin (Aspirin Chewable) 162 mg 1X ONCE PO Last administered on 09/19/20at 06:59; Start 09/19/20 at 07:00; Stop 09/19/20 at 07:01; Status DC Hydralazine HCl (Apresoline Inj) 10 mg 1X ONCE IVP Last administered on 09/19/20at 07:01; Start 09/19/20 at 07:00; Stop 09/19/20 at 07:01; Status DC Lorazepam (Ativan) 0.5 mg 1X ONCE PO Last administered on 09/19/20at 06:58; Start 09/19/20 at 07:00; Stop 09/19/20 at 07:01; Status DC Iohexol (Omnipaque 350 Mg/ml) 100 ml 1X ONCE IV Last administered on 09/19/20at 07:40; Start 09/19/20 at 07:00; Stop 09/19/20 at 07:01; Status DC Info (CONTRAST GIVEN -- Rx MONITORING) 1 each PRN DAILY PRN MC SEE COMMENTS; Start 09/19/20 at 07:00; Stop 09/21/20 at 06:59 Active Scripts Active Hydrocodone-Apap 10-325 (Hydrocodone Bit/Acetaminophen) 1 Tab Tablet 1 Tab PO PRN Q3HRS PRN Reported Trazodone Hcl 100 Mg Tablet 1 Tab PO QHS Wellbutrin Sr (Bupropion Hcl) 150 Mg Tablet.er 0.5 Tab PO BID Escitalopram Oxalate 20 Mg Tablet 1 Tab PO DAILY Spironolactone 25 Mg Tablet 1 Tab PO DAILY Metoprolol Succinate ( Xl ) (Metoprolol Succinate) 25 Mg Tab.er.24h 25 Mg PO DAILY One Daily For Women Tablet (Folic Acid/Mv,Fe,Other Min) 1 Each Tablet 1 Each PO Omeprazole 40 Mg Capsule.dr 1 Cap PO DAILY Ventolin Hfa Inhaler (Albuterol Sulfate) 18 Gm Hfa.aer.ad 2 Puff INH Q4HRS Trazodone Hcl 100 Mg Tablet 1 Tab PO QHS Allergies Allergies: Coded Allergies: NSAIDS (Non-Steroidal Anti-Inflamma (Verified Allergy, Severe, BLEEDING, 12/20/19) Penicillins (Verified Allergy, Intermediate, Hives, 05/24/14) levofloxacin (Verified Allergy, Intermediate, joint pain, 05/24/14) ROS Review of System GENERAL: No history of weight change, weakness or fevers. SKIN: No bruising, hair changes or rashes. EYES: No blurred, double or loss of vision. NOSE AND THROAT: No history of nosebleeds, hoarseness or sore throat. HEART: Chest pain. Denies palpitations. LUNGS: Denies cough, hemoptysis, wheezing or shortness of breath. GASTROINTESTINAL: Denies nausea, vomiting, abdominal pain. GENITOURINARY: Denies dysuria, frequency, urgency, hematuria. NEUROLOGIC: Denies history of numbness, tingling, tremor or weakness. PSYCHIATRIC: Denies anxiety, denies depression. ENDOCRINE: No history of heat or cold intolerance, polyuria or polydipsia. EXTREMITIES: Denies muscle weakness, joint pain, pain on walking or stiffness. Physical Exam Physical Exam General: Alert, Oriented X3, Cooperative, No acute distress HEENT: PERRLA, EOMI Lungs: Clear to auscultation, Normal air movement Heart: RRR, no murmurs Cardiovascular: S1, S2 Abdomen: Normal bowel sounds, Soft, No tenderness Extremities: No clubbing, No cyanosis Skin: No rashes, No significant lesion Neuro: Normal speech, Normal tone, Sensation intact Psych/Mental Status: Mental status NL, Mood NL Vitals Vitals Vital Signs Date Time Temp Pulse Resp B/P (MAP) Pulse Ox O2 Delivery O2 Flow Rate FiO2 09/19/20 07:01 51 197/79 09/19/20 06:39 100 Room Air 09/19/20 05:33 98.1 18 98.1 Labs Labs Laboratory Tests Test 09/19/20 06:10 White Blood Count 10.2 x10^3/uL (4.0-11.0) Red Blood Count 4.60 x10^6/uL (3.50-5.40) Hemoglobin 13.0 g/dL (12.0-15.5) Hematocrit 40.0 % (36.0-47.0) Mean Corpuscular Volume 87 fL (79-100) Mean Corpuscular Hemoglobin 28 pg (25-35) Mean Corpuscular Hemoglobin Concent 32 g/dL (31-37) Red Cell Distribution Width 15.4 % (11.5-14.5) Platelet Count 315 x10^3/uL (140-400) Neutrophils (%) (Auto) 54 % (31-73) Lymphocytes (%) (Auto) 38 % (24-48) Monocytes (%) (Auto) 6 % (0-9) Eosinophils (%) (Auto) 1 % (0-3) Basophils (%) (Auto) 1 % (0-3) Neutrophils # (Auto) 5.5 x10^3/uL (1.8-7.7) Lymphocytes # (Auto) 3.9 x10^3/uL (1.0-4.8) Monocytes # (Auto) 0.6 x10^3/uL (0.0-1.1) Eosinophils # (Auto) 0.1 x10^3/uL (0.0-0.7) Basophils # (Auto) 0.1 x10^3/uL (0.0-0.2) Prothrombin Time 13.1 SEC (11.7-14.0) Prothromb Time International Ratio 1.0 (0.8-1.1) Activated Partial Thromboplast Time 31 SEC (24-38) D-Dimer ([place]) 0.70 ug/mlFEU (0.00-0.50) Sodium Level 138 mmol/L (136-145) Potassium Level 3.6 mmol/L (3.5-5.1) Chloride Level 100 mmol/L (98-107) Carbon Dioxide Level 27 mmol/L (21-32) Anion Gap 11 (6-14) Blood Urea Nitrogen 13 mg/dL (7-20) Creatinine 0.9 mg/dL (0.6-1.0) Estimated GFR (Cockcroft-Gault) 66.0 BUN/Creatinine Ratio 14 (6-20) Glucose Level 98 mg/dL (70-99) Calcium Level 10.0 mg/dL (8.5-10.1) Magnesium Level 1.9 mg/dL (1.8-2.4) Total Bilirubin 0.4 mg/dL (0.2-1.0) Aspartate Amino Transf (AST/SGOT) 16 U/L (15-37) Alanine Aminotransferase (ALT/SGPT) 27 U/L (14-59) Alkaline Phosphatase 213 U/L (46-116) Creatine Kinase 31 U/L (26-192) Creatine Kinase MB (Mass) < 0.5 ng/mL (0.0-3.6) Creatine Kinase MB Relative Index % (0-4) Troponin I Quantitative < 0.017 ng/mL (0.000-0.055) VO-Qif-Q-Type Natriuretic Peptide 888 pg/mL (0-124) Total Protein 7.6 g/dL (6.4-8.2) Albumin 3.5 g/dL (3.4-5.0) Albumin/Globulin Ratio 0.9 (1.0-1.7) Lipase 48 U/L (73-393) Laboratory Tests Test 09/19/20 06:10 White Blood Count 10.2 x10^3/uL (4.0-11.0) Red Blood Count 4.60 x10^6/uL (3.50-5.40) Hemoglobin 13.0 g/dL (12.0-15.5) Hematocrit 40.0 % (36.0-47.0) Mean Corpuscular Volume 87 fL (79-100) Mean Corpuscular Hemoglobin 28 pg (25-35) Mean Corpuscular Hemoglobin Concent 32 g/dL (31-37) Red Cell Distribution Width 15.4 % (11.5-14.5) Platelet Count 315 x10^3/uL (140-400) Neutrophils (%) (Auto) 54 % (31-73) Lymphocytes (%) (Auto) 38 % (24-48) Monocytes (%) (Auto) 6 % (0-9) Eosinophils (%) (Auto) 1 % (0-3) Basophils (%) (Auto) 1 % (0-3) Neutrophils # (Auto) 5.5 x10^3/uL (1.8-7.7) Lymphocytes # (Auto) 3.9 x10^3/uL (1.0-4.8) Monocytes # (Auto) 0.6 x10^3/uL (0.0-1.1) Eosinophils # (Auto) 0.1 x10^3/uL (0.0-0.7) Basophils # (Auto) 0.1 x10^3/uL (0.0-0.2) Prothrombin Time 13.1 SEC (11.7-14.0) Prothromb Time International Ratio 1.0 (0.8-1.1) Activated Partial Thromboplast Time 31 SEC (24-38) D-Dimer ([place]) 0.70 ug/mlFEU (0.00-0.50) Sodium Level 138 mmol/L (136-145) Potassium Level 3.6 mmol/L (3.5-5.1) Chloride Level 100 mmol/L (98-107) Carbon Dioxide Level 27 mmol/L (21-32) Anion Gap 11 (6-14) Blood Urea Nitrogen 13 mg/dL (7-20) Creatinine 0.9 mg/dL (0.6-1.0) Estimated GFR (Cockcroft-Gault) 66.0 BUN/Creatinine Ratio 14 (6-20) Glucose Level 98 mg/dL (70-99) Calcium Level 10.0 mg/dL (8.5-10.1) Magnesium Level 1.9 mg/dL (1.8-2.4) Total Bilirubin 0.4 mg/dL (0.2-1.0) Aspartate Amino Transf (AST/SGOT) 16 U/L (15-37) Alanine Aminotransferase (ALT/SGPT) 27 U/L (14-59) Alkaline Phosphatase 213 U/L (46-116) Creatine Kinase 31 U/L (26-192) Creatine Kinase MB (Mass) < 0.5 ng/mL (0.0-3.6) Creatine Kinase MB Relative Index % (0-4) Troponin I Quantitative < 0.017 ng/mL (0.000-0.055) CN-Xvo-Y-Type Natriuretic Peptide 888 pg/mL (0-124) Total Protein 7.6 g/dL (6.4-8.2) Albumin 3.5 g/dL (3.4-5.0) Albumin/Globulin Ratio 0.9 (1.0-1.7) Lipase 48 U/L (73-393) Images Images AP portable chest radiograph 09/19/2020 Clinical History: Chest pain. An AP erect portable digital radiograph of the chest was obtained. Comparison study is dated 12/20/2019. The cardiac silhouette is borderline enlarged. The thoracic aorta is minimally tortuous. No acute pulmonary infiltrate is seen. No pleural effusion or pneumothorax is noted. Degenerative changes are seen involving the thoracic spine and both shoulders. Impression: No acute abnormality is seen. VTE Prophylaxis Ordered VTE Prophylaxis Devices: No VTE Pharmacological Prophylaxi: Yes Assessment/Plan Assessment/Plan Chest pain Malignant hypertension CHF HLD Recent right ankle fracture status post fixation Plan: Initial troponin 0.017, will continue to trend. BNP 888. D-dimer 0.70, CTA pending. Will consult cardiology Morphine, nitroglycerin as needed Symptoms improved with Ativan, suspect anxiety. However she does have a risk factors and what appears to be systolic heart failure based on her medications. Will order echocardiogram. Resume home medications FEN - Cardiac diet PPX - Lovenox FULL CODE Dispo - inpatient for above Justifications for Admission Other Justification SHAKIR MAZARIEGOS MD Sep 19, 2020 08:06
[2020-09-19 08:07] LABS: BILIRUBIN,URINE NEGATIVE (NEG); CLARITY,URINE CLEAR; COLOR,URINE YELLOW; NITRITE,URINE NEGATIVE (NEG); PH,URINE 8.5 (<5.0-8.0); PROTEIN,URINE NEGATIVE (NEG-TRACE); UROBILINOGEN,URINE 0.2 mg/dL (0.2 mg/dL)
[2020-09-19 08:11] LABS: BARBITURATES NEG (NEG); BENZODIAZEPINES NEG (NEG); CANNABINOIDS NEG (NEG); COCAINE NEG (NEG); METHADONE NEG (NEG); OPIATES NEG (NEG); PHENCYCLIDINE NEG (NEG)
[2020-09-19 08:14] LABS: AMPHETAMINE/METHAMPHETAMINE NEG (NEG)
--- NOTE | 2020-09-19 08:28 | RAD ---
EXAM: CT Pulmonary Angiogram INDICATION: Reason: EVAL FOR PE / Spl. Instructions: omni 350 inj 100 mls / History: TECHNIQUE: Multi-detector row images were acquired from the thoracic inlet through the upper abdomen with the use of IV contrast. Sagittal and coronal images were acquired from the transaxial data. TX P images of the pulmonary arteries were obtained. All CT scans performed at this facility utilize dos e optimization techniques as appropriate to the exam, including the following: Automated exposure con trol and adjustment of the mA and/or KV according to patient size (this includes techniques or standa rdized protocols for targeted exams where dose is indication/reason for exam). IV CONTRAST: Administered COMPARISON: None FINDINGS: PULMONARY ARTERIES: No pulmonary emboli are identified. CARDIOVASCULAR: Unremarkable Aorta is normal caliber. MEDIASTINUM & KERRY: No adenopathy or masses. LUNGS: No pulmonary infiltrate, nodule, or other focal abnormality. PLEURAL SPACE: No pleural effusions or pneumothorax. OSSEOUS & SOFT TISSUE: Unremarkable ABDOMEN: The visualized portions of the upper abdomen show surgical changes from previous gastric byp ass surgery and cholecystectomy.. IMPRESSION: Normal CT pulmonary angiogram. Electronically signed by: Seven Lemus MD (09/19/2020 8:03 AM) [id number]
[2020-09-19 08:43] LABS: BACTERIA,URINE 0 /HPF (0-FEW); RBC,URINE OCC /HPF (0-2); WBC,URINE OCC /HPF (0-4)
[2020-09-19] MEDS ORDERED: NITROGLYCERIN SUBLINGUAL 0.4 MG BOTTLE OF 25. SL PRN (08:45)
[2020-09-19 09:00] VITALS: BP 192/77
--- NOTE | 2020-09-19 09:08 | PDOC2 ---
ROSAURA AZEVEDO BUNDLER 09/19/20 0907: CARDIAC CONSULT DATE OF CONSULT Date of Consult DATE: 09/19/20 TIME: 08:52 REASON FOR CONSULT Reason for Consult: Chest pain REFERRING PHYSICIAN Referring Physician: Smooth SOURCE Source: Chart review, Patient HISTORY OF PRESENT ILLNESS HISTORY OF PRESENT ILLNESS This is a pleasant 50 yo female admitted for complains of chest pain. Reports midchest pressure from epigastric to midsternal. This started Tuesday and felt that she may ba having some anxiety issues. Could not take a deep breath but no SOA. Denies any palpitations, jaw tightness or arm heaviness. Reports no nausea or vomiting. No hx of CAD or arrhythmias. She takes metoprolol at home and noted with HR as an inpt as low as in the 40s mainly while asleep but with good chronotropic response and no symptoms. She S/P Osiris-en-y 4 months ago and has lost about 72 pounds since. She eats frequently per her diet regimen but admits laying down right away after eating. She takes prilosec daily and no NSAIDs. Reports that her chest discomfort is actually better when she ambulates. No passing out. No hx of VTE. Reports that she has been sleeping more lately but at the same time she also has anxiety meds and chronic opioid use. She uses CPAP which has not been calibrated in the last 3 yrs and with her wt loss it will need to be check again. No recent falls or injury. Her mobility is somewhat limited due to recent right ankle repair and walks with a cam boot. No changes to her activity tolerance otherwsie. Her chest discomfort as an inpt got better with ativan as well. PAST MEDICAL HISTORY Cardiovascular: CHF, HTN, Hyperlipidemia Pulmonary: Asthma, COPD, Other (RAMU) CENTRAL NERVOUS SYSTEM: Migraine GI: GERD Heme/Onc: No pertinent hx Hepatobiliary: Cholelithiasis Psych: Anxiety, Other (alcoholism) Musculoskeletal: low back pain, Osteoarthritis Rheumatologic: No pertinent hx Infectious disease: Other (Mononucleosis) ENT: No pertinent hx Renal/: Other (endometriosis?) Endocrine: No pertinent hx Dermatology: No pertinent hx PAST SURGICAL HISTORY Past Surgical History: Arthroscopy (right ankle ORIF), Cholecystectomy, Other (Lap band placement and removal, uretral ablation; lumbar fusion; Osiris-en-y 4 months ago) FAMILY HISTORY Family History noncontributory to CV Family History: Hypertension SOCIAL HISTORY Smoke: No ALCOHOL: none Drugs: Marijuana Lives: with Family CURRENT MEDICATIONS CURRENT MEDICATIONS Current Medications Medications (Trade) Dose Ordered Sig/Ga Route PRN Reason Start Time Stop Time Status Last Admin Dose Admin Aspirin (Aspirin Chewable) 162 mg 1X ONCE PO 09/19/20 07:00 09/19/20 07:01 DC 09/19/20 06:59 Hydralazine HCl (Apresoline Inj) 10 mg 1X ONCE IVP 09/19/20 07:00 09/19/20 07:01 DC 09/19/20 07:01 Lorazepam (Ativan) 0.5 mg 1X ONCE PO 09/19/20 07:00 09/19/20 07:01 DC 09/19/20 06:58 Iohexol (Omnipaque 350 Mg/ml) 100 ml 1X ONCE IV 09/19/20 07:00 09/19/20 07:01 DC 09/19/20 07:40 ALLERGIES ALLERGIES: Coded Allergies: NSAIDS (Non-Steroidal Anti-Inflamma (Verified Allergy, Severe, BLEEDING, 12/20/19) Penicillins (Verified Allergy, Intermediate, Hives, 05/24/14) levofloxacin (Verified Allergy, Intermediate, joint pain, 05/24/14) ROS Review of System 14 point ROS evaluated with pertinent positives noted per HPI PHYSICAL EXAM General: Alert, Oriented X3, Cooperative, No acute distress HEENT: Atraumatic, Mucous membr. moist/pink Lungs: Clear to auscultation, Normal air movement Heart: Regular rate (SR/SB), Normal S1, Normal S2, No murmurs Abdomen: Soft, No tenderness Extremities: No cyanosis, No edema Skin: No breakdown, No significant lesion Neuro: Normal speech, Sensation intact Psych/Mental Status: Mental status NL, Other (anxiety) MUSCULOSKELETAL: Osteoarthritic changes both hands VITALS/I&O VITALS/I&O: Vital Signs Date Time Temp Pulse Resp B/P (MAP) Pulse Ox O2 Delivery O2 Flow Rate FiO2 09/19/20 07:56 59 153/66 (95) 100 Room Air 09/19/20 05:33 98.1 18 98.1 LABS Lab: Laboratory Tests Test 09/19/20 06:10 09/19/20 07:55 White Blood Count 10.2 x10^3/uL (4.0-11.0) Red Blood Count 4.60 x10^6/uL (3.50-5.40) Hemoglobin 13.0 g/dL (12.0-15.5) Hematocrit 40.0 % (36.0-47.0) Mean Corpuscular Volume 87 fL (79-100) Mean Corpuscular Hemoglobin 28 pg (25-35) Mean Corpuscular Hemoglobin Concent 32 g/dL (31-37) Red Cell Distribution Width 15.4 % (11.5-14.5) H Platelet Count 315 x10^3/uL (140-400) Neutrophils (%) (Auto) 54 % (31-73) Lymphocytes (%) (Auto) 38 % (24-48) Monocytes (%) (Auto) 6 % (0-9) Eosinophils (%) (Auto) 1 % (0-3) Basophils (%) (Auto) 1 % (0-3) Neutrophils # (Auto) 5.5 x10^3/uL (1.8-7.7) Lymphocytes # (Auto) 3.9 x10^3/uL (1.0-4.8) Monocytes # (Auto) 0.6 x10^3/uL (0.0-1.1) Eosinophils # (Auto) 0.1 x10^3/uL (0.0-0.7) Basophils # (Auto) 0.1 x10^3/uL (0.0-0.2) Prothrombin Time 13.1 SEC (11.7-14.0) Prothrombin Time INR 1.0 (0.8-1.1) Activated Partial Thromboplast Time 31 SEC (24-38) D-Dimer ([place]) 0.70 ug/mlFEU (0.00-0.50) H Sodium Level 138 mmol/L (136-145) Potassium Level 3.6 mmol/L (3.5-5.1) Chloride Level 100 mmol/L (98-107) Carbon Dioxide Level 27 mmol/L (21-32) Anion Gap 11 (6-14) Blood Urea Nitrogen 13 mg/dL (7-20) Creatinine 0.9 mg/dL (0.6-1.0) Estimated GFR (Cockcroft-Gault) 66.0 BUN/Creatinine Ratio 14 (6-20) Glucose Level 98 mg/dL (70-99) Calcium Level 10.0 mg/dL (8.5-10.1) Magnesium Level 1.9 mg/dL (1.8-2.4) Total Bilirubin 0.4 mg/dL (0.2-1.0) Aspartate Amino Transferase (AST) 16 U/L (15-37) Alanine Aminotransferase (ALT) 27 U/L (14-59) Alkaline Phosphatase 213 U/L (46-116) H Creatine Kinase 31 U/L (26-192) Creatine Kinase MB (Mass) < 0.5 ng/mL (0.0-3.6) Creatine Kinase MB Relative Index % (0-4) Troponin I Quantitative < 0.017 ng/mL (0.000-0.055) WW-Swt-V-Type Natriuretic Peptide 888 pg/mL (0-124) H Total Protein 7.6 g/dL (6.4-8.2) Albumin 3.5 g/dL (3.4-5.0) Albumin/Globulin Ratio 0.9 (1.0-1.7) L Lipase 48 U/L (73-393) L Urine Collection Type Void Urine Color Yellow Urine Clarity Clear Urine pH 8.5 (<5.0-8.0) Urine Specific [place] >=1.030 (1.000-1.030) Urine Protein Negative mg/dL (NEG-TRACE) Urine Glucose (UA) Negative mg/dL (NEG) Urine Ketones (Stick) 40 mg/dL (NEG) Urine Blood Moderate (NEG) Urine Nitrite Negative (NEG) Urine Bilirubin Negative (NEG) Urine Urobilinogen Dipstick 0.2 mg/dL (0.2 mg/dL) Urine Leukocyte Esterase Negative (NEG) Urine RBC Occ /HPF (0-2) Urine WBC Occ /HPF (0-4) Urine Squamous Epithelial Cells Mod /LPF Urine Bacteria 0 /HPF (0-FEW) Urine Opiates Screen Neg (NEG) Urine Methadone Screen Neg (NEG) Urine Barbiturates Neg (NEG) Urine Phencyclidine Screen Neg (NEG) Urine Amphetamine/Methamphetamine Neg (NEG) Urine Benzodiazepines Screen Neg (NEG) Urine Cocaine Screen Neg (NEG) Urine Cannabinoids Screen Neg (NEG) Urine Ethyl Alcohol Neg (NEG) Laboratory Tests 09/19/20 06:10 Laboratory Tests 09/19/20 06:10 ASSESSMENT/PLAN ASSESSMENT/PLAN 1. Atypical chest pain: possibly GI and anxiety 2. HTN: labile 3. HLP: LDL 134 4. Morbid obesity 5. Asymptomatic SB: on home toprol 6. RAMU: uses CPAP 7. S/P Osiris-en-y: lost 72 pounds Recommendations 1. Stop home aldactone and toprol. Start on lisinopril and HCTZ 2. Dietitian consult to reinforce Osiris-en-Y diet and for DASH diet and HLP 3. GI cocktail, continue PPI 4. TTE today. Discussed CAD s/s and pathophysiology. If Pain remains recurrent then would consider for outpt stress test 5. Antianxiety meds per PCP 6. She will need to follow up with her gastric surgeon as she has failed to do this. Also will need to follow up with outpt PCP and see if her CPAP needs adjustment. IRLANDA PANDYA MD 09/19/20 1604: CARDIAC CONSULT ASSESSMENT/PLAN ASSESSMENT/PLAN Patient seen and evaluated. I agree with our nurse practitioners assessment and plan as above. Atypical chest pain. No acute ischemic EKG changes. No significant elevation in troponin. Echo cardiogram pending. Possible outpatient stress testing for recurrent pain. Asymptomatic bradycardia. Will hold Toprol. Hypertension. Improved. We will continue to monitor. Obstructive sleep apnea. On CPAP. Morbid obesity/status post op as above with significant weight loss. Treatment with PPIs. Follow-up with her gastric surgeon. ROSAURA AZEVEDO APRN Sep 19, 2020 09:07 IRLANDA PANDYA MD Sep 19, 2020 16:04
[2020-09-19 09:36] LABS: CHOLESTEROL/HDL RATIO 4.9
[2020-09-19] MEDS ORDERED: METO25TA4 PO (09:37)
[2020-09-19] MEDS ORDERED: ONDANSETRON PF 4 MG/2 ML VIAL. IVP PRN (09:45)
[2020-09-19] MEDS ORDERED: MAG HYDROX/ALUMINUM HYD/SIMETH 30 ML ORAL.SUSP PO PRN (09:45)
[2020-09-19] MEDS ORDERED: ZOLPIDEM 5 MG TABLET. PO PRN (09:45)
[2020-09-19] MEDS ORDERED: MAGNESIUM HYDROXIDE 2,400 MG/30 ML ORAL.SUSP. PO PRN (09:45)
[2020-09-19] MEDS ORDERED: oxyCODONE IR 5 MG TABLET PO PRN ×2 (09:45)
[2020-09-19] MEDS ORDERED: oxyCODONE/APAP 5/325 1 TAB TABLET PO PRN ×2 (09:45)
[2020-09-19] MEDS ORDERED: BISACODYL 10 MG SUPP.RECT. PR PRN (09:45)
[2020-09-19] MEDS ORDERED: CALCIUM CARBONATE 500 MG TAB.CHEW PO PRN (09:45)
[2020-09-19] MEDS ORDERED: ACETAMINOPHEN 325 MG TABLET. PO PRN (09:45)
[2020-09-19] MEDS ORDERED: ENOXAPARIN 40 MG/0.4 ML SYRINGE. SQ SCH (10:00)
[2020-09-19] MEDS ORDERED: DOCUSATE SODIUM 100 MG CAPSULE. PO SCH (10:00)
[2020-09-19] MEDS ORDERED: LIDO:MAALOX 1:1 20 ML SINGLE DOSE. SWSW ONE (10:45)
[2020-09-19 10:52] VITALS: BP 168/80
[2020-09-19] MEDS ORDERED: PANTOPRAZOLE 40 MG TABLET.DR. PO SCH (11:00)
[2020-09-19] MEDS ORDERED: LISINOPRIL 20 MG TABLET PO SCH (11:00)
[2020-09-19] MEDS ORDERED: hydroCHLOROthiazide 12.5 MG CAPSULE PO SCH (11:00)
[2020-09-19] MEDS ORDERED: CITALOPRAM 20 MG TABLET. PO SCH (11:00)
[2020-09-19] MEDS ORDERED: buPROPion SR 150 MG TABLET.SA PO SCH (11:00)
[2020-09-19 15:41] VITALS: BP 160/76
[2020-09-19] MEDS ORDERED: HYDR12.575 PO (16:03)
--- NOTE | 2020-09-19 16:05 | PDOC3 ---
Discharge Summary Visit Information Date of Admission: Sep 19, 2020 Date of Discharge: Sep 19, 2020 Final Diagnosis Problems Medical Problems: (1) Chest pain Status: Acute Brief Hospital Course Allergies Allergies Coded Allergies Type Severity Reaction Last Updated Verified NSAIDS (Non-Steroidal Anti-Inflamma Allergy Severe BLEEDING 12/20/19 Yes Penicillins Allergy Intermediate Hives 05/24/14 Yes levofloxacin Allergy Intermediate joint pain 05/24/14 Yes Vital Signs Vital Signs Date Time Temp Pulse Resp B/P (MAP) Pulse Ox O2 Delivery O2 Flow Rate FiO2 09/19/20 15:41 98.3 55 18 160/76 (104) 100 BiPAP/CPAP 98.3 Lab Results Laboratory Tests Test 09/19/20 06:10 09/19/20 07:55 09/19/20 09:07 09/19/20 13:24 White Blood Count 10.2 x10^3/uL (4.0-11.0) Red Blood Count 4.60 x10^6/uL (3.50-5.40) Hemoglobin 13.0 g/dL (12.0-15.5) Hematocrit 40.0 % (36.0-47.0) Mean Corpuscular Volume 87 fL (79-100) Mean Corpuscular Hemoglobin 28 pg (25-35) Mean Corpuscular Hemoglobin Concent 32 g/dL (31-37) Red Cell Distribution Width 15.4 % (11.5-14.5) Platelet Count 315 x10^3/uL (140-400) Neutrophils (%) (Auto) 54 % (31-73) Lymphocytes (%) (Auto) 38 % (24-48) Monocytes (%) (Auto) 6 % (0-9) Eosinophils (%) (Auto) 1 % (0-3) Basophils (%) (Auto) 1 % (0-3) Neutrophils # (Auto) 5.5 x10^3/uL (1.8-7.7) Lymphocytes # (Auto) 3.9 x10^3/uL (1.0-4.8) Monocytes # (Auto) 0.6 x10^3/uL (0.0-1.1) Eosinophils # (Auto) 0.1 x10^3/uL (0.0-0.7) Basophils # (Auto) 0.1 x10^3/uL (0.0-0.2) Prothrombin Time 13.1 SEC (11.7-14.0) Prothromb Time International Ratio 1.0 (0.8-1.1) Activated Partial Thromboplast Time 31 SEC (24-38) D-Dimer ([place]) 0.70 ug/mlFEU (0.00-0.50) Sodium Level 138 mmol/L (136-145) Potassium Level 3.6 mmol/L (3.5-5.1) Chloride Level 100 mmol/L (98-107) Carbon Dioxide Level 27 mmol/L (21-32) Anion Gap 11 (6-14) Blood Urea Nitrogen 13 mg/dL (7-20) Creatinine 0.9 mg/dL (0.6-1.0) Estimated GFR (Cockcroft-Gault) 66.0 BUN/Creatinine Ratio 14 (6-20) Glucose Level 98 mg/dL (70-99) Calcium Level 10.0 mg/dL (8.5-10.1) Magnesium Level 1.9 mg/dL (1.8-2.4) Total Bilirubin 0.4 mg/dL (0.2-1.0) Aspartate Amino Transf (AST/SGOT) 16 U/L (15-37) Alanine Aminotransferase (ALT/SGPT) 27 U/L (14-59) Alkaline Phosphatase 213 U/L (46-116) Creatine Kinase 31 U/L (26-192) Creatine Kinase MB (Mass) < 0.5 ng/mL (0.0-3.6) Creatine Kinase MB Relative Index % (0-4) Troponin I Quantitative < 0.017 ng/mL (0.000-0.055) < 0.017 ng/mL (0.000-0.055) < 0.017 ng/mL (0.000-0.055) KD-Sjs-W-Type Natriuretic Peptide 888 pg/mL (0-124) Total Protein 7.6 g/dL (6.4-8.2) Albumin 3.5 g/dL (3.4-5.0) Albumin/Globulin Ratio 0.9 (1.0-1.7) Triglycerides Level 123 mg/dL (0-150) Cholesterol Level 200 mg/dL (0-200) LDL Cholesterol, Calculated 134 mg/dL (0-100) VLDL Cholesterol, Calculated 25 mg/dL (0-40) Non-HDL Cholesterol Calculated 159 mg/dL (0-129) HDL Cholesterol 41 mg/dL (40-60) Cholesterol/HDL Ratio 4.9 Lipase 48 U/L (73-393) Thyroid Stimulating Hormone (TSH) 1.241 uIU/mL (0.358-3.74) Urine Collection Type Void Urine Color Yellow Urine Clarity Clear Urine pH 8.5 (<5.0-8.0) Urine Specific [place] >=1.030 (1.000-1.030) Urine Protein Negative mg/dL (NEG-TRACE) Urine Glucose (UA) Negative mg/dL (NEG) Urine Ketones (Stick) 40 mg/dL (NEG) Urine Blood Moderate (NEG) Urine Nitrite Negative (NEG) Urine Bilirubin Negative (NEG) Urine Urobilinogen Dipstick 0.2 mg/dL (0.2 mg/dL) Urine Leukocyte Esterase Negative (NEG) Urine RBC Occ /HPF (0-2) Urine WBC Occ /HPF (0-4) Urine Squamous Epithelial Cells Mod /LPF Urine Bacteria 0 /HPF (0-FEW) Urine Opiates Screen Neg (NEG) Urine Methadone Screen Neg (NEG) Urine Barbiturates Neg (NEG) Urine Phencyclidine Screen Neg (NEG) Urine Amphetamine/Methamphetamine Neg (NEG) Urine Benzodiazepines Screen Neg (NEG) Urine Cocaine Screen Neg (NEG) Urine Cannabinoids Screen Neg (NEG) Urine Ethyl Alcohol Neg (NEG) Laboratory Tests Test 09/19/20 06:10 09/19/20 07:55 09/19/20 09:07 09/19/20 13:24 White Blood Count 10.2 x10^3/uL (4.0-11.0) Red Blood Count 4.60 x10^6/uL (3.50-5.40) Hemoglobin 13.0 g/dL (12.0-15.5) Hematocrit 40.0 % (36.0-47.0) Mean Corpuscular Volume 87 fL (79-100) Mean Corpuscular Hemoglobin 28 pg (25-35) Mean Corpuscular Hemoglobin Concent 32 g/dL (31-37) Red Cell Distribution Width 15.4 % (11.5-14.5) Platelet Count 315 x10^3/uL (140-400) Neutrophils (%) (Auto) 54 % (31-73) Lymphocytes (%) (Auto) 38 % (24-48) Monocytes (%) (Auto) 6 % (0-9) Eosinophils (%) (Auto) 1 % (0-3) Basophils (%) (Auto) 1 % (0-3) Neutrophils # (Auto) 5.5 x10^3/uL (1.8-7.7) Lymphocytes # (Auto) 3.9 x10^3/uL (1.0-4.8) Monocytes # (Auto) 0.6 x10^3/uL (0.0-1.1) Eosinophils # (Auto) 0.1 x10^3/uL (0.0-0.7) Basophils # (Auto) 0.1 x10^3/uL (0.0-0.2) Prothrombin Time 13.1 SEC (11.7-14.0) Prothromb Time International Ratio 1.0 (0.8-1.1) Activated Partial Thromboplast Time 31 SEC (24-38) D-Dimer ([place]) 0.70 ug/mlFEU (0.00-0.50) Sodium Level 138 mmol/L (136-145) Potassium Level 3.6 mmol/L (3.5-5.1) Chloride Level 100 mmol/L (98-107) Carbon Dioxide Level 27 mmol/L (21-32) Anion Gap 11 (6-14) Blood Urea Nitrogen 13 mg/dL (7-20) Creatinine 0.9 mg/dL (0.6-1.0) Estimated GFR (Cockcroft-Gault) 66.0 BUN/Creatinine Ratio 14 (6-20) Glucose Level 98 mg/dL (70-99) Calcium Level 10.0 mg/dL (8.5-10.1) Magnesium Level 1.9 mg/dL (1.8-2.4) Total Bilirubin 0.4 mg/dL (0.2-1.0) Aspartate Amino Transf (AST/SGOT) 16 U/L (15-37) Alanine Aminotransferase (ALT/SGPT) 27 U/L (14-59) Alkaline Phosphatase 213 U/L (46-116) Creatine Kinase 31 U/L (26-192) Creatine Kinase MB (Mass) < 0.5 ng/mL (0.0-3.6) Creatine Kinase MB Relative Index % (0-4) Troponin I Quantitative < 0.017 ng/mL (0.000-0.055) < 0.017 ng/mL (0.000-0.055) < 0.017 ng/mL (0.000-0.055) XE-Whh-E-Type Natriuretic Peptide 888 pg/mL (0-124) Total Protein 7.6 g/dL (6.4-8.2) Albumin 3.5 g/dL (3.4-5.0) Albumin/Globulin Ratio 0.9 (1.0-1.7) Triglycerides Level 123 mg/dL (0-150) Cholesterol Level 200 mg/dL (0-200) LDL Cholesterol, Calculated 134 mg/dL (0-100) VLDL Cholesterol, Calculated 25 mg/dL (0-40) Non-HDL Cholesterol Calculated 159 mg/dL (0-129) HDL Cholesterol 41 mg/dL (40-60) Cholesterol/HDL Ratio 4.9 Lipase 48 U/L (73-393) Thyroid Stimulating Hormone (TSH) 1.241 uIU/mL (0.358-3.74) Urine Collection Type Void Urine Color Yellow Urine Clarity Clear Urine pH 8.5 (<5.0-8.0) Urine Specific [place] >=1.030 (1.000-1.030) Urine Protein Negative mg/dL (NEG-TRACE) Urine Glucose (UA) Negative mg/dL (NEG) Urine Ketones (Stick) 40 mg/dL (NEG) Urine Blood Moderate (NEG) Urine Nitrite Negative (NEG) Urine Bilirubin Negative (NEG) Urine Urobilinogen Dipstick 0.2 mg/dL (0.2 mg/dL) Urine Leukocyte Esterase Negative (NEG) Urine RBC Occ /HPF (0-2) Urine WBC Occ /HPF (0-4) Urine Squamous Epithelial Cells Mod /LPF Urine Bacteria 0 /HPF (0-FEW) Urine Opiates Screen Neg (NEG) Urine Methadone Screen Neg (NEG) Urine Barbiturates Neg (NEG) Urine Phencyclidine Screen Neg (NEG) Urine Amphetamine/Methamphetamine Neg (NEG) Urine Benzodiazepines Screen Neg (NEG) Urine Cocaine Screen Neg (NEG) Urine Cannabinoids Screen Neg (NEG) Urine Ethyl Alcohol Neg (NEG) Brief Hospital Course Ms. Walls is a 50 old female who presented with chest pain. Describes the chest pain more as chest pressure. She has a history of depression, and her symptoms resolved with Ativan. Consult placed to cardiology. Troponins were negative x3. Echocardiogram was was obtained but report pending at the time of this discharge. Echo reportedly normal with no evidence of LV wall abnormality. She was stable for discharge with close PCP follow-up. Discharge Information Condition at Discharge: Improved Follow Up: Weeks Disposition/Orders: D/C to Home Scheduled Albuterol Sulfate (Ventolin Hfa Inhaler) 18 Gm Hfa.aer.ad, 2 PUFF INH Q4HRS for FOR ASTHMA, Ref 0 (Reported) Entered as Reported by: Lucia Law on 10/20/16 0902 Bupropion Hcl (Wellbutrin Sr) 150 Mg Tablet.er, 1 TAB PO BID for dep, #60 Ref 5 (Reported) Entered as Reported by: LAW CARO RN on 07/30/20 145 Last Action: Continued on 09/19/20 1051 by Bora Mckeon Escitalopram Oxalate (Escitalopram Oxalate) 20 Mg Tablet, 1 TAB PO DAILY for dep, #30 Ref 5 (Reported) Entered as Reported by: LAW CARO RN on 07/30/201455 Last Action: Converted on 09/19/20 1051 by Bora Mckeon Hydrochlorothiazide (Hydrochlorothiazide Capsule ) 12.5 Mg Capsule, 12.5 MG PO DAILY for HTN, #30 Prescribed by: SHAKIR MAZAIREGOS MD on 09/19/20 1603 Omeprazole (Omeprazole) 40 Mg Capsule.dr, 1 CAP PO DAILY, #30 Ref 3 (Reported) Entered as Reported by: NIRU MALAVE on 02/14/18 0806 Last Action: Converted on 09/19/20 1051 by Bora Mckeon Trazodone Hcl (Trazodone Hcl) 100 Mg Tablet, 1 TAB PO QHS, #30 Ref 1 (Reported) Entered as Reported by: Lucia Law on 10/20/16 0902 Scheduled PRN Hydrocodone Bit/Acetaminophen (Hydrocodone-Apap 10-325 ) 1 Tab Tablet, 1 TAB PO PRN Q3HRS PRN for SEVERE PAIN 7-10, 1ST CHOICE, #20 Prescribed by: DANIELLA MEZA MD on 08/06/20 0749 Miscellaneous Medications Folic Acid/Mv,Fe,Other Min (One Daily For Women Tablet) 1 Each Tablet, 1 EACH PO, (Reported) Entered as Reported by: NIRU MALAVE on 02/14/18 0806 Discontinued Medications Metoprolol Succinate (Metoprolol Succinate ( Xl )) 25 Mg Tab.er.24h, 25 MG PO DAILY for FOR HYPERTENSION, #30 Ref 0 (Reported) Entered as Reported by: RAUL DHILLON on 01/02/19 1454 Last Action: Discontinued on 09/19/20 0907 by ROSAURA AZEVEDO Metoprolol Tartrate (Metoprolol Tartrate) 25 Mg Tablet, 0.5 TAB PO BID for blood pressure, #180 Ref 1 (Reported) Entered as Reported by: Bora Mckeon on 09/19/20 0937 Last Action: Discontinued on 09/19/20 155 by Bora Mckeon Spironolactone (Spironolactone) 25 Mg Tablet, 1 TAB PO DAILY for a, #90 Ref 1 (Reported) Entered as Reported by: LAW CARO RN on 07/30/20 1456 Last Action: Discontinued on 09/19/201551 by Bora Mckeon Justicifation of Admission Dx: Justifications for Admission: Justification of Admission Dx: N/A SHAKIR MAZARIEGOS MD Sep 19, 2020 16:05
[2020-09-19] MEDS ORDERED: LISI-130 PO (16:19)
--- NOTE | 2020-09-19 17:55 | NUR ---
PATIENT DISCHARGED TO HOME. DISCHARGE INSTRUCTIONS GIVEN. PIV AND HEART MONITOR REMOVED. ESCORTED PATIENT OFF UNIT PER WHEELCHAIR INTO A PRIVATE VEHICLE.
--- NOTE | 2020-09-19 18:03 | CARD ---
MR#: [id number] Date of Study: 09/19/2020 Ordering Physician: SHAKIR MAZARIEGOS, Referring Physician: SHAKIR MAZARIEGOS, Tech: Tatiana Morin [facility] APPROVED REPORT EXAM: Two-dimensional and M-mode echocardiogram with Doppler and color Doppler. Other Information Quality : AverageHR: 55bpm Rhythm : NSR INDICATION Dyspnea Congestive Heart Failure RISK FACTORS Hypertension 2D DIMENSIONS RVDd4.3 (2.9-3.5cm)Left Atrium(2D)5.3 (1.6-4.0cm) IVSd0.9 (0.7-1.1cm)Aortic Root(2D)3.2 (2.0-3.7cm) LVDd5.7 (3.9-5.9cm)LVOT Diameter2.6 (1.8-2.4cm) PWd1.1 (0.7-1.1cm)LVDs3.7 (2.5-4.0cm) FS (%) 35.4 %SV104.3 ml Aortic Valve AoV Peak Aryan.194.9cm/sAoV VTI48.9cm AO Peak GR.15.2mmHgLVOT Peak Aryan.188.9cm/s AO Mean GR.7mmHgAVA (VMAX)5.02cm2 Mitral Valve MV E Bdakibrw674.2cm/sMV DECEL RIPC414om MV A Sstvqcok491.1cm/sE/A Ratio1.3 Pulmonary Valve PV Peak Rlymolus145.5cm/s Tricuspid Valve TR P. Desgevev087az/sTR Peak Gr.42mmHg LEFT VENTRICLE The Left Ventricle is borderline dilated. There is normal left ventricular wall thickness. The left v entricular systolic function is normal and the ejection fraction is within normal range. Estimated e jection fraction 55-60%. There is normal LV segmental wall motion. The left ventricular diastolic fun ction and filling is normal for age. RIGHT VENTRICLE The right ventricle is normal size. There is normal right ventricular wall thickness. The right ventr icular systolic function is normal. ATRIA The left atrium size is normal. The right atrium size is normal. The interatrial septum is intact wit h no evidence for an atrial septal defect or patent foramen ovale as noted on 2-D or Doppler imaging. AORTIC VALVE The aortic valve is normal in structure and function. Doppler and Color Flow revealed no significant aortic regurgitation. There is no significant aortic valvular stenosis. MITRAL VALVE The mitral valve is normal in structure and function. There is no evidence of mitral valve prolapse. There is no mitral valve stenosis. Doppler and Color-flow revealed mild to moderate mitral regurgitat ion. TRICUSPID VALVE The tricuspid valve is normal in structure and function. Doppler and Color Flow revealed mild tricusp id regurgitation. Estimated PAP 52 mmHg. There is no tricuspid valve stenosis. PULMONIC VALVE The pulmonary valve is normal in structure. The velocity across the pumonic valve is mildly increased . Doppler and Color Flow revealed no pulmonic valvular regurgitation. GREAT VESSELS The aortic root is normal in size. The ascending aorta is normal in size. The IVC is dilated and mary apses >50% with inspiration. PERICARDIAL EFFUSION There is no evidence of significant pericardial effusion. Critical Notification Critical Value: No <Conclusion> The Left Ventricle is borderline dilated. The left ventricular systolic function is normal and the ejection fraction is within normal range. Estimated ejection fraction 55-60%. Doppler and Color Flow revealed no significant aortic regurgitation. There is no significant aortic valvular stenosis. Doppler and Color-flow revealed mild to moderate mitral regurgitation. Doppler and Color Flow revealed mild tricuspid regurgitation. Estimated PAP 52 mmHg. Signed by : Emiliano Amaro MD Electronically Approved : 09/19/2020 18:03:00
== END 2020-09-19 17:58 | disposition home or self-care (01) ==
LOC: ER 05:32 → 2 SOUTH 08:29
PROVIDERS: ADMIT Family Medicine; ATTEND Family Medicine
DX: R07.89 Other chest pain (principal); I11.0 Hypertensive heart disease with heart failure; I50.9 Heart failure, unspecified; R79.1 Abnormal coagulation profile; E78.5 Hyperlipidemia, unspecified; E66.01 Morbid (severe) obesity due to excess calories; J44.9 Chronic obstructive pulmonary disease, unspecified; G25.81 Restless legs syndrome; G47.33 Obstructive sleep apnea (adult) (pediatric); E78.00 Pure hypercholesterolemia, unspecified; F06.4 Anxiety disorder due to known physiological condition; F41.1 Generalized anxiety disorder; Z90.49 Acquired absence of other specified parts of digestive tract; Z98.890 Other specified postprocedural states; Z98.84 Bariatric surgery status; Z79.82 Long term (current) use of aspirin; Z79.891 Long term (current) use of opiate analgesic; Z68.41 Body mass index [BMI] 40.0-44.9, adult
CPT/HCPCS: 36415; 71045; 71275; 80053; 80061; 80307; 81001; 82553; 83690; 83735; 83880; 84443; 84484; 85025; 85379; 85610; 85730; 93005; 93306; 96372; 96374; 99285; G0378; J0360; J1650; Q9967; G0379

== ENCOUNTER 2021-01-09 06:01 | Day surgery (SDC) | payer OTHER ==
[~2021-01-09] VITALS: Ht 172.7 cm; Wt 100.0 kg
[~2021-01-09 06:01] MED LIST changes: +CALC-337 PO; +CLINDAMYCIN 900MG PREMIX 50 ML IV PRN; +CLONAZEPAM1 MG PO; +FERR-36 PO; +FLUT100D2 IH; +HYDR12.575 PO; +HYDROmorphone 2 MG/ML VIAL IVP PRN; +IV RINGERS,LACTATED 1000ML 1,000 ML IV SCH; +METO25TA4 PO; +MORPHINE SULFATE 2 MG/ML VIAL. IVP PRN; -OMEP40CA45 PO; +OMEP40CA7 PO; +PROCHLORPERAZINE 10 MG/2 ML VIAL. IVP PRN; +fentaNYL PF VIAL 100 MCG/2 ML VIAL IVP PRN
[2021-01-09] MEDS ORDERED: PROPOFOL 10 MG/ML (20ML) VIAL. IV ONE (06:16)
[2021-01-09] MEDS ORDERED: LIDOCAINE 2% PF 5 ML VIAL. ONE (06:17)
[2021-01-09] MEDS ORDERED: ONDANSETRON PF 4 MG/2 ML VIAL. ONE (06:17)
[2021-01-09] MEDS ORDERED: DEXAMETHASONE SOD PHOS 4 MG/ML VIAL ONE (06:17)
[2021-01-09 06:35] VITALS: BP 107/53
[2021-01-09] MEDS ORDERED: BUPIVACAINE-EPI 0.25% 30 ML VIAL KIT. ONE (06:53)
[2021-01-09] MEDS ORDERED: methylPREDNISolone ACETATE 80 MG/ML VIAL. ONE (06:53)
[2021-01-09] MEDS ORDERED: fentaNYL PF VIAL 100 MCG/2 ML VIAL ONE ×2 (07:02→08:36)
[2021-01-09] MEDS ORDERED: MIDAZOLAM HCL/PF 2 MG/2 ML VIAL. ONE (07:03)
--- NOTE | 2021-01-09 07:05 | NUR ---
PTS URINE PREG NEG BY SIGHT BUT INCONCLUSIVE BY MACHINE. pT IS ON HER PEROID CURRENTLY, HAS HAD ABLATION AND STATES SHE HAS NOT HAD SEX FOR [address] TRUJILLO INFORMED AND DID NOT WANT TO ORDER A SERUM PREG TEST.
[2021-01-09] MEDS ORDERED: SEVOFLURANE 31 TO 60 MINUTES. IH ONE (07:49)
--- NOTE | 2021-01-09 08:21 | PDOC4 ---
Operative Note Operative Note Date of Procedure: January 09, 2021 Pre-Op Diagnosis: Mechanical complication of internal fixation device of bone of right lower leg, initial encounter T84.196A Bilateral knee osteoarthritis M17.0 Post-Op Diagnosis: same Procedures: CPT 81312 removal of implant deep (e.g., buried wire, pin, screw, nail, david, or plate) right ankle CPT 86894-31 bilateral knee corticosteroid injection Surgeon: Kyaw Jose MD Benefits Analyst: ZECHARIAH Pimentel Anesthesia: General EBL: 5 mL Specimens Obtained: none Complications: none Drains: none Tourniquet: None Indications for Procedure: The patient is a 50 year old with mechanical complications of retained hardware of the right ankle. She also has bilateral k nee osteoarthritis pain and was due for cortisone injections in the knee and would like to do those under anesthesia. We discussed all of this in the office preoperatively. The patient and I discussed the risks, benefits and alternatives of surgery. I recommended hardware removal but I discussed the potential risks of syndesmosis widening, infection, bleeding, blood clots, neurovascular injury, or other potential surgical or anesthetic complications. All of her questions were answered and she desired to proceed with surgery. Procedure in Detail: The patient was identified in the preoperative holding area. The correct right ankle was marked by me. Both knees were marked with a skin marker by me for injection only. The patient was taken to the operating room where general anesthetic was used. The patient was positioned on the operating table. Preoperative antibiotics were given intravenously. A timeout procedure was performed. Both knees were prepared using ChloraPrep for sterile skin preparation, and then under sterile technique each knee was injected using 80 mg of Depo-Medrol and 1 mL of 0.25% bupivacaine. A Band-Aid was placed on each knee. No tourniquet was used.The limb was prepared in sterile fashion with ChloraPrep and sterile drapes were applied. The prior lateral incision was used. The small image intensifier was used to plan the incision. A small skin incision w as made with a 10 blade scalpel. The subcutaneous tissue was divided and retracted. The fascia was retracted by my assistant professor of psychology with a Dalton elevator. The plate and screws were identified. The syndesmosis screw was removed without difficulty with a screwdriver. The screw was not broken and was fully intact and is approximately 45 mm in length. Copious saline irrigation was used. The incision was closed with #3-0 Prolene sutures by my assistant professor of psychology. Local anesthetic with epinephrine was injected into the skin edges. Xeroform and a sterile dressing were applied. Needle and sponge counts were correct. There were no apparent complications. KYAW JOSE MD Jan 09, 2021 08:21
[2021-01-09] MEDS: fentaNYL PF VIAL 100 MCG/2 ML VIAL IVP PRN ×2 (08:37→08:44)
[2021-01-09 08:49] VITALS: BP 100/48
== END 2021-01-09 09:18 | disposition home or self-care (01) ==
LOC: SURG 06:01
PROVIDERS: ATTEND Orthopaedic Surgery
DX: T84.196A Other mechanical complication of internal fixation device of bone of right lower leg, initial encounter (principal); M17.0 Bilateral primary osteoarthritis of knee; I11.0 Hypertensive heart disease with heart failure; I50.9 Heart failure, unspecified; E78.00 Pure hypercholesterolemia, unspecified; K21.9 Gastro-esophageal reflux disease without esophagitis; J44.9 Chronic obstructive pulmonary disease, unspecified; G47.30 Sleep apnea, unspecified; F41.9 Anxiety disorder, unspecified; F32.9 Major depressive disorder, single episode, unspecified; Z79.899 Other long term (current) drug therapy; Z98.890 Other specified postprocedural states; Z88.0 Allergy status to penicillin; Z88.1 Allergy status to other antibiotic agents; Z88.8 Allergy status to other drugs, medicaments and biological substances; X58.XXXA Exposure to other specified factors, initial encounter; Y93.89 Activity, other specified; Y92.89 Other specified places as the place of occurrence of the external cause; Y99.8 Other external cause status
CPT/HCPCS: 20610; 20680; A4213; A4930; A6219; A6253; A6402; A6449; J1040; J1100; J2250; J2405; J2704; J3010; J3490; A6455